=== PATIENT | male | born 1980 | race Caucasian/White ===

== ENCOUNTER 2017-05-18 11:55 | Outpatient (CLI) | payer SELFPAY | END 2017-05-18 15:25 | disposition home or self-care (01) | PROVIDERS: PCP Nurse Practitioner Family; Visit Provider Nurse Practitioner Family | DX: Z02.4 Encounter for examination for driving license (principal) ==

== ENCOUNTER → 2019-11-23 07:04 | Outpatient (CLI) | payer OTHER, SELFPAY ==
[2019-11-23 07:29] LABS: Basophils % 0.3 % (0.1-2.0); Eosinophils # 0.3 K/mm3 (0.0-0.4); Eosinophils % 4.1 % (0.1-12.0); Hematocrit 44.8 % (42.0-52.0); Hemoglobin 15.7 g/dL (14.1-18.0); Lymphocytes # 1.5 K/mm3 (0.7-4.5); Lymphocytes % 22.8 % (10-50); Mean Corpuscular HGB Conc 35.2 g/dL (31.8-35.4); Mean Corpuscular Hemoglobin 31.7 pg (27.0-31.2); Mean Platelet Volume 7.3 fl (7.4-10.4); Monocytes # 0.3 K/mm3 (0.1-1.0); Monocytes % 4.8 % (1.7-9.3); Neutrophils # 4.3 K/mm3 (1.8-7.8); Neutrophils % 68.1 % (37.0-80.0); Platelet Count 221 K/mm3 (142-424); Red Blood Count 4.97 M/mm3 (4.60-6.20); Red Cell Distribution Width 12.5 % (11.5-17.5); White Blood Count 6.4 K/mm3 (4.8-10.8)
[2019-11-23 09:40] LABS: Alanine Aminotransferase 167 U/L (12-78); Albumin Level 4.5 g/dl (3.5-5.0); Albumin/Globulin Ratio 1.4 (1.1-1.8); Alkaline Phosphatase 97 U/L (38-126); Anion Gap 13.8 mEq/L (5-15); Aspartate Amino Transferase 91 U/L (17-59); Bilirubin,Total 0.9 mg/dl (0.2-1.3); Blood Urea Nitrogen 15 mg/dl (9-20); Calcium 9.6 mg/dl (8.4-10.2); Carbon Dioxide 31 mmol/L (22.0-30.0); Chloride 100 mmol/L (98-107); Chol/HDL Ratio 4.2 (1-3.5); Cholesterol 216 mg/dl (140-200); Estimated Glomerular Filt Rate 107 ml/min (>60); GFR (African American) 130 ML/MIN (>60); Globulin 3.3 g/dL (1.3-3.2); Glucose 140 mg/dl (74-100); HDL Cholesterol 51 mg/dl (40-60); Potassium 4.8 mmoL/L (3.5-5.1); Sodium 140 mmol/L (136-145); Total Protein,Serum 7.8 g/dl (6.3-8.2); Triglycerides 89 mg/dl (30-150); VLDL Cholesterol 18 mg/dL (0-40)
[2019-11-23 09:51] LABS: Direct LDL Cholesterol 145.33 mg/dL (100-129)
== END ==
PROVIDERS: Visit Provider Internal Medicine Adolescent Medicine
DX: Z00.00 Encounter for general adult medical examination without abnormal findings (principal); R73.9 Hyperglycemia, unspecified; E78.00 Pure hypercholesterolemia, unspecified; E66.9 Obesity, unspecified
CPT/HCPCS: 36415; 80053; 80061; 83036; 85025

== ENCOUNTER 2020-03-29 19:48 | Emergency (ER) | payer OTHER, SELFPAY ==
[2020-03-29 20:15] VITALS: BP 135/92; PULSE 92; RESP 20; TEMP 36.9; O2SAT 97; BMI 36.6
[2020-03-29 20:48] LABS: POC Glucose,Bedside 167 (70-110)
[2020-03-29 21:02] VITALS: BP 139/90; PULSE 80; RESP 15; TEMP 36.6; O2SAT 99; BMI 37.3
[2020-03-29 21:11] LABS: POC Glucose,Bedside 153 (70-110)
--- NOTE | 2020-03-29 21:11 | XR_ITS ---
PROCEDURE: XR CHEST 2V CLINICAL HISTORY: dizziness COMPARISON: CR CXR1 CHEST-PORTABLE from 12/03/2015 CR CXR1 CHEST-PORTABLE from 12/07/2015 FINDINGS: The cardiomediastinal silhouette and pulmonary vascularity are within normal limits. The lungs are clear without infiltrates, suspicious nodules, or pleural effusions. No acute bony abnormalities. IMPRESSION: No acute findings. Dictated by: Silvino Flanagan MD 03/29/2020 23:08 Silvino Flanagan MD in [place] 03/29/2020 23:08
--- NOTE | 2020-03-29 21:11 | CT_ITS ---
PROCEDURE: CT HEAD/BRAIN WO CON CLINICAL INDICATION: headache,dizziness Frontal headache and dizziness COMPARISON: No exams were available for comparison TECHNIQUE: Axial images obtained. All CT scans at the facility use one or more dose reduction, viz: automated exposure control, ma/kV adjustment per patient size (including targeted exams where dose is matched to indication, i.e. head), or iterative reconstruction technique. FINDINGS: No midline shift or mass effect. No acute intracranial hemorrhage. There is mild mucosal thickening of the ethmoid sinuses. There is a sim cisterna magna versus arachnoid cyst within the posterior cranial fossa. MRI without and with enhancement may further evaluate if clinically warranted. IMPRESSION: 1. No acute intracranial findings. 2. 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
--- NOTE | 2020-03-29 21:11 | ECG_ITS ---
APPROVED REPORT Exam: Resting ECG HR:82 bpm ECG Measurements Heart Rate 82 AXES OR 172 P 42 QRSd 110 QRS 73 QT 356 T 1 QTc 415 Conclusion Normal sinus rhythm Incomplete right bundle branch block Non-significant inferior changes Abnormal ECG Electronically signed by : Zach Patel, 03/30/2020 08:11:27
[2020-03-29 21:24] VITALS: BP 152/99; PULSE 88; RESP 18; O2SAT 98
--- NOTE | 2020-03-29 21:27 | PC.NURSE ---
Patient going to radiology
[2020-03-29 21:30] VITALS: BP 145/94; PULSE 96; O2SAT 95
--- NOTE | 2020-03-29 21:34 | HMH.EDNEU ---
ED Disposition Clinical Impression: Arachnoid cyst Adverse effects of medication Qualifiers: Encounter type: initial encounter Qualified Code(s): T50.905A - Adverse effect of unspecified drugs, medicaments and biological substances, initial encounter Disposition: Home, Self-Care Condition on Discharge: Good Instructions: Tips for Safely Using Medications Additional Instructions: see pcp for follow up Referrals: Zach Patel MD [Primary Care Provider] - - Critical Care Critical Care Time: No Attestation: On 03/29/20, the high probability of a clinically significant, sudden or life threatening deterioration of the following system(s) required my full and direct attention, intervention and personal management. The time I documented below is in addition to time spent performing reported procedures but includes the following listed in this critical care notation. Medical Decision Making - Medical Records Medical records reviewed: Yes: I reviewed the patient's medical records. - Kadeem Inquiry Pt receiving controlled substance: No Vital Signs: 03/29/20 20:15 03/29/20 21:02 03/29/20 21:24 Temperature 98.4 F 97.9 F Temperature Source Oral Oral Pulse Rate [Right Brachial] 92 H 80 88 Respiratory Rate 20 15 18 Blood Pressure [Right Arm] 135/92 H 139/90 152/99 H Blood Pressure Mean [Right Arm] 106 106 116 Blood Pressure Source [Right Arm] Automatic Cuff Automatic Cuff Automatic Cuff Blood Pressure Position [Right Arm] Sitting Sitting Sitting 02 Sat by Pulse Oximetry 97 99 98 Oxygen Delivery Method Room Air Room Air Room Air 03/29/20 21:30 03/29/20 23:00 Temperature Temperature Source Pulse Rate [Right Brachial] 96 H 85 Respiratory Rate Blood Pressure [Right Arm] 145/94 H 145/95 H Blood Pressure Mean [Right Arm] 111 111 Blood Pressure Source [Right Arm] Automatic Cuff Automatic Cuff Blood Pressure Position [Right Arm] Sitting Sitting 02 Sat by Pulse Oximetry 95 Oxygen Delivery Method Room Air - Lab Data Lab results reviewed: Yes: I reviewed the patient's lab results. Lab Results 03/29/20 20:39: POC Glucose 167 H 03/29/20 21:03: POC Glucose 153 H 03/29/20 21:20: WBC 8.6, RBC 5.66, Hgb 17.6, Hct 50.8, MCV 89.9, MCH 31.0, MCHC 34.5, RDW 13.2, Plt Count 259, MPV 7.5, Neut % (Auto) 68.5, Lymph % (Auto) 21.0, [place] % (Auto) 6.3, Eos % (Auto) 3.7, Baso % (Auto) 0.5, Neut # (Auto) 5.9, Lymph # (Auto) 1.8, [place] # (Auto) 0.5, Eos # (Auto) 0.3, Baso # (Auto) 0.0 03/29/20 21:20: Sodium 140, Potassium 4.1, Chloride 103, Carbon Dioxide 28, Anion Gap 13.1, BUN 18, Creatinine 1.00, Estimated Creat Clear 173, Estimated GFR 83, Est GFR ( Amer) 100, Glucose 133 H, Calcium 9.5, Troponin I < 0.01, TSH 3.68 03/29/20 21:20: Free T4 0.75 L 03/29/20 21:51: Urine Color Yellow, Urine Appearance Clear, Urine pH 6.0, Ur Specific [place] 1.025, Urine Protein Negative, Urine Glucose (UA) 3+, Urine Ketones Negative, Urine Blood Negative, Urine Nitrate Negative, Urine Bilirubin Negative, Urine Urobilinogen 0.2, Ur Leukocyte Esterase Negative, Urine WBC Occasional 03/29/20 21:51: Urine Opiates Screen Negative, Urine Methadone Screen Negative, Ur Barbituates Screen Negative, Ur Phencyclidine Scrn Negative, Ur Amphetamines Screen Negative, U Benzodiazepines Scrn Negative, Urine Cocaine Screen Negative, U Marijuana (THC) Screen Negative Result diagrams: 03/29/20 21:20 03/29/20 21:20 Orders (Tests/Meds): ORDERS Category Date Time Status CT head/brain wo con Stat Cat Scan 03/29/20 21:11 Taken Troponin I Q3H Lab 03/30/20 00:15 Ordered Troponin I Q3H Lab 03/30/20 03:15 Ordered - Radiology Data #1 Image(s): Chest Image Reviewed: Yes I reviewed the patient's radiology image Preliminary Findings: Normal/NAD - CT Data CT Scan: Head Time Received: 23:[address] Reviewed: Yes: I have viewed the radiologist's interpretation Preliminary Findings: Abnormal (arachnoid cyst ) - ECG Data Tracing #1 Norm
[2020-03-29 21:35] LABS: Basophils % 0.5 % (0.1-2.0); Eosinophils # 0.3 K/mm3 (0.0-0.4); Eosinophils % 3.7 % (0.1-12.0); Hematocrit 50.8 % (42.0-52.0); Hemoglobin 17.6 g/dL (14.1-18.0); Lymphocytes # 1.8 K/mm3 (0.7-4.5); Mean Corpuscular HGB Conc 34.5 g/dL (31.8-35.4); Mean Corpuscular Volume 89.9 fl (80-94); Mean Platelet Volume 7.5 fl (7.4-10.4); Monocytes # 0.5 K/mm3 (0.1-1.0); Monocytes % 6.3 % (1.7-9.3); Neutrophils # 5.9 K/mm3 (1.8-7.8); Neutrophils % 68.5 % (37.0-80.0); Platelet Count 259 K/mm3 (142-424); Red Blood Count 5.66 M/mm3 (4.60-6.20); Red Cell Distribution Width 13.2 % (11.5-17.5); White Blood Count 8.6 K/mm3 (4.8-10.8)
[2020-03-29 21:36] LABS: Chloride 103 mmol/L (98-107); Sodium 140 mmol/L (136-145)
[2020-03-29 21:37] LABS: Potassium 4.1 mmoL/L (3.5-5.1)
[2020-03-29 21:40] LABS: Anion Gap 13.1 mEq/L (5-15); Blood Urea Nitrogen 18 mg/dl (9-20); Calcium 9.5 mg/dl (8.4-10.2); Carbon Dioxide 28 mmol/L (22.0-30.0); Creatinine Clearance Estimated 173 mL/min (50-200); Estimated Glomerular Filt Rate 83 ml/min (>60); GFR (African American) 100 ML/MIN (>60); Glucose 133 mg/dl (74-100)
--- NOTE | 2020-03-29 21:49 | PC.NURSE ---
pt back from RAD
[2020-03-29 21:57] LABS: Free T4 (Free Thyroxine) 0.75 ng/dl (0.78-2.19)
[2020-03-29 22:02] LABS: Troponin I < 0.01 ng/ml (0.00-0.034)
[2020-03-29 22:05] LABS: Microscopic, Urine URINE MICROSCOPIC (MICROSCOPIC)
[2020-03-29 22:10] LABS: Appearance,Urine CLEAR (Clear); Bilirubin,Urine Negative (Negative); Blood, Urine Negative (Negative); Color,Urine YELLOW (Yellow); Glucose,Urine (UA) 3+ (Negative); Ketones,Urine Negative (Negative); Leukocyte Esterase,Urine Negative (Negative); Nitrate,Urine Negative (Negative); Protein,Urine Negative (Negative); Specific Gravity, Urine 1.025 (1.005-1.030); Urobilinogen,Urine 0.2 EU/dl (0.2)
[2020-03-29 22:12] LABS: Thyroid Stimulating Hormone 3.68 uIU/mL (0.465-4.68)
[2020-03-29 22:27] LABS: WBC,Urine Occasional #/hpf (0-3)
[2020-03-29 22:29] LABS: Benzodiazepines Screen,Urine Negative ng/ml (<200)
[2020-03-29 22:30] LABS: Amphetamine/Metha Screen,Urine Negative ng/ml (<1000); Barbiturates Screen,Urine Negative ng/ml (<200)
[2020-03-29 22:31] LABS: Cannabinoid Screen,Urine Negative ng/ml (<50)
[2020-03-29 22:32] LABS: Cocaine Screen,Urine Negative ng/ml (<300); Methadone Screen,Urine Negative ng/ml (<300)
[2020-03-29 22:33] LABS: Opiate Screen,Urine Negative ng/ml (<300)
[2020-03-29 22:34] LABS: Phencyclidine Screen,Urine Negative ng/ml (<25)
[2020-03-29 23:00] VITALS: BP 145/95; PULSE 85
[2020-03-30 00:13] VITALS: BP 155/75; PULSE 79; RESP 16; TEMP 36.7; O2SAT 99
== END 2020-03-30 00:15 | disposition home or self-care (01) ==
LOC: UTC 19:54 → ER 20:41
PROVIDERS: Emergency Provider Emergency Medicine; PCP Internal Medicine Adolescent Medicine
DX: G93.0 Cerebral cysts (principal); T50.905A Adverse effect of unspecified drugs, medicaments and biological substances, initial encounter; E11.9 Type 2 diabetes mellitus without complications; I10 Essential (primary) hypertension; Z79.84 Long term (current) use of oral hypoglycemic drugs; Z79.899 Other long term (current) drug therapy
CPT/HCPCS: 70450; 71046; 80048; 80305; 81001; 82962; 84439; 84443; 84484; 85025; 93005; 99284

== ENCOUNTER → 2020-04-02 17:03 | Outpatient (CLI) | payer OTHER, SELFPAY ==
[2020-04-02 17:55] LABS: Blood Urea Nitrogen 20 mg/dl (9-20); Estimated Glomerular Filt Rate 83 ml/min (>60); GFR (African American) 100 ML/MIN (>60)
== END ==
PROVIDERS: Visit Provider Internal Medicine Adolescent Medicine
DX: E11.69 Type 2 diabetes mellitus with other specified complication (principal); Z79.84 Long term (current) use of oral hypoglycemic drugs
CPT/HCPCS: 36415; 82565; 84520

== ENCOUNTER → 2020-04-04 07:38 | Outpatient (CLI) | payer OTHER, SELFPAY ==
--- NOTE | 2020-04-04 07:43 | MR_ITS ---
PROCEDURE: MR HEAD/BRAIN WO/W CON CLINICAL INDICATION: Headaches and dizziness, abnormal head CT. 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 FINDINGS: No midline shift or mass effect evident. No evidence of acute infarction. Prominent CSF signal intensity is noted in the retro cerebellar region slightly eccentric toward the right. This is felt represent a sim cisterna magna as opposed to an arachnoid cyst. This cystic areas splits the dura superiorly with some traversing vessels in keeping with and sim cisterna magna. This area does not show any contrast enhancement. There is some mild flattening of the superior vermis of the cerebellum from this cystic area. The cerebellopontine angles, midbrain, and brainstem have an unremarkable appearance. No enhancing lesions are evident. There is a small focus of increased T2 signal in the subcortical region of the left parietal lobe which is nonspecific best detected on series 8, image 15. This does not show any contrast enhancement. The pituitary, optic chiasm, corpus callosum, and craniocervical junction have an unremarkable appearance. Small amount fluid is present in the mastoid sinus on the right. There is mucosal thickening of the right maxillary sinus and bilateral ethmoid sinuses. IMPRESSION: 1. Prominent CSF signal intensity in the retro cerebellar region eccentric toward the right as described above felt to represent a sim cisterna magna as opposed to an arachnoid cyst. There is some mild mass effect with flattening of the vermis centrally. Suggest 3 to six-month follow-up to confirm stability. 2. Small focus of T2 hyperintensity in the subcortical region white matter in the left parietal lobe. This is nonspecific and may be due to small gliotic focus. Differential diagnosis would include a solitary demyelinating area. Follow-up may confirm stability. 3. Mild sinus disease Dictated by: Silvino Flanagan MD 04/04/2020 12:59 Silvino Flanagan MD in [place] 04/04/2020 12:59
== END ==
PROVIDERS: PCP Internal Medicine Adolescent Medicine; Visit Provider Nurse Practitioner Family
DX: R93.0 Abnormal findings on diagnostic imaging of skull and head, not elsewhere classified (principal)
CPT/HCPCS: 70553; A9576

== ENCOUNTER → 2020-05-02 07:06 | Outpatient (CLI) | payer OTHER, SELFPAY ==
[2020-05-02 08:48] LABS: Hemoglobin A1C 6.1 % (4.0-6.0)
[2020-05-02 08:56] LABS: Alanine Aminotransferase 77 U/L (12-78); Albumin Level 4.5 g/dl (3.5-5.0); Albumin/Globulin Ratio 1.3 (1.1-1.8); Alkaline Phosphatase 79 U/L (38-126); Anion Gap 12.6 mEq/L (5-15); Aspartate Amino Transferase 42 U/L (17-59); Bilirubin,Total 0.9 mg/dl (0.2-1.3); Blood Urea Nitrogen 16 mg/dl (9-20); Calcium 9.8 mg/dl (8.4-10.2); Carbon Dioxide 29 mmol/L (22.0-30.0); Chloride 101 mmol/L (98-107); Chol/HDL Ratio 3.9 (1-3.5); Cholesterol 188 mg/dl (140-200); Estimated Glomerular Filt Rate 93 ml/min (>60); GFR (African American) 113 ML/MIN (>60); Globulin 3.4 g/dL (1.3-3.2); Glucose 121 mg/dl (74-100); HDL Cholesterol 48 mg/dl (40-60); Potassium 4.6 mmoL/L (3.5-5.1); Sodium 138 mmol/L (136-145); Total Protein,Serum 7.9 g/dl (6.3-8.2); Triglycerides 75 mg/dl (30-150); VLDL Cholesterol 15 mg/dL (0-40)
[2020-05-02 09:06] LABS: Direct LDL Cholesterol 109.88 mg/dL (100-129)
== END ==
PROVIDERS: Visit Provider Internal Medicine Adolescent Medicine
DX: E11.69 Type 2 diabetes mellitus with other specified complication (principal)
CPT/HCPCS: 36415; 80053; 80061; 83036

== ENCOUNTER → 2020-10-19 14:37 | Outpatient (CLI) | payer OTHER, SELFPAY | PROVIDERS: PCP Internal Medicine Adolescent Medicine; Visit Provider Internal Medicine Adolescent Medicine | DX: G47.33 Obstructive sleep apnea (adult) (pediatric) (principal); I10 Essential (primary) hypertension; E66.9 Obesity, unspecified | CPT/HCPCS: 95806 ==

== ENCOUNTER 2020-10-24 20:37 | Observation (INO) | payer OTHER, SELFPAY ==
[2020-10-24] VITALS (10 sets, daily range): BP systolic 125–163; BP diastolic 85–101; PULSE 88–104; RESP 15–22; TEMP 36.7–37.3; O2SAT 91–100; BMI 37.3; BMI 37.2
--- NOTE | 2020-10-24 20:35 | ECG_ITS ---
APPROVED REPORT Exam: Resting ECG HR:103 bpm ECG Measurements Heart Rate 103 AXES [place] 154 P 9 QRSd 104 QRS 69 QT 330 T 12 QTc 432 Conclusion Sinus tachycardia Incomplete right bundle branch block Borderline ECG Electronically signed by : Zach Patel, 10/25/2020 08:34:39
--- NOTE | 2020-10-24 20:49 | XR_ITS ---
PROCEDURE INFORMATION: Exam: XR Chest Exam date and time: 10/24/2020 8:49 PM Age: 40 years old Clinical indication: Chest pressure; Patient HX: Chest pain since this morning, no other symptoms TECHNIQUE: Imaging protocol: XR of the chest. Views: 2 views. COMPARISON: CR XR CHEST 2V 03/29/2020 9:21 PM FINDINGS: Lungs: Mild underinflation. No consolidation. Pleural spaces: No significant pleural effusion. No pneumothorax. Heart/Mediastinum: No cardiomegaly. Bones/joints: No displaced fracture. Soft tissues: Unremarkable. IMPRESSION: No definite acute cardiopulmonary disease.
[2020-10-24 20:51] LABS: POC Glucose,Bedside 147 (70-110)
--- NOTE | 2020-10-24 21:09 | CT_ITS ---
PROCEDURE INFORMATION: Exam: CT Head Without Contrast Exam date and time: 10/24/2020 9:09 PM Age: 40 years old Clinical indication: Syncope and collapse TECHNIQUE: Imaging protocol: Computed tomography of the head without contrast. Radiation optimization: All CT scans at this facility use at least one of these dose optimization techniques: automated exposure control; mA and/or kV adjustment per patient size (includes targeted exams where dose is matched to clinical indication); or iterative reconstruction. COMPARISON: MR HEAD/BRAIN WO/W CON 04/04/2020 7:56 AM FINDINGS: Brain: No intracranial hemorrhage. No mass. Prominent cisterna magna. No definite edema. Cerebral ventricles: No hydrocephalus. Paranasal sinuses: Scattered minimal mucosal thickening. Mastoid air cells: No significant effusion. Orbital cavity: Unremarkable as visualized. Bones/joints: No acute fracture. Soft tissues: Unremarkable. IMPRESSION: No definite acute intracranial abnormality. If symptoms persist, consider MRI.
[2020-10-24 21:14] LABS: Anion Gap 16.4 mEq/L (5-15); Blood Urea Nitrogen 17 mg/dl (9-20); Calcium 9.2 mg/dl (8.4-10.2); Carbon Dioxide 28 mmol/L (22.0-30.0); Chloride 101 mmol/L (98-107); Creatinine Clearance Estimated 172 mL/min (50-200); Estimated Glomerular Filt Rate 82 ml/min (>60); GFR (African American) 100 ML/MIN (>60); Glucose 140 mg/dl (74-100); Potassium 4.4 mmoL/L (3.5-5.1); Sodium 141 mmol/L (136-145)
[2020-10-24 21:17] LABS: Basophils # 0.1 K/mm3 (0-0.2); Basophils % 1.2 % (0.1-2.0); Eosinophils # 0.1 K/mm3 (0.0-0.4); Eosinophils % 2.1 % (0.1-12.0); Hematocrit 44.6 % (42.0-52.0); Hemoglobin 15.6 g/dL (14.1-18.0); Lymphocytes # 1.3 K/mm3 (0.7-4.5); Lymphocytes % 20.1 % (10-50); Mean Corpuscular Hemoglobin 30.2 pg (27.0-31.2); Mean Corpuscular Volume 86.3 fl (80-94); Mean Platelet Volume 7.4 fl (7.4-10.4); Monocytes # 0.4 K/mm3 (0.1-1.0); Monocytes % 6.3 % (1.7-9.3); Neutrophils # 4.4 K/mm3 (1.8-7.8); Neutrophils % 70.3 % (37.0-80.0); Platelet Count 195 K/mm3 (142-424); Red Blood Count 5.18 M/mm3 (4.60-6.20); Red Cell Distribution Width 12.8 % (11.5-17.5); White Blood Count 6.3 K/mm3 (4.8-10.8)
[2020-10-24 21:20] LABS: C-Reactive Protein 16.3 mg/L (0-4)
[2020-10-24 21:31] LABS: Troponin I < 0.01 ng/ml (0.00-0.034)
[2020-10-24 21:34] LABS: Procalcitonin 0.085 ng/mL (0.0-2.0)
--- NOTE | 2020-10-24 21:34 | HMH.EDCP ---
ED Disposition Clinical Impression: Obesity (BMI 30-39.9) Chest pain Qualifiers: Chest pain type: precordial pain Qualified Code(s): R07.2 - Precordial pain Diabetes mellitus Qualifiers: Diabetes mellitus type: type 2 Diabetes mellitus emt intermediate insulin use: unspecified emt intermediate insulin use status Diabetes mellitus complication status: with other specified complication Qualified Code(s): E11.69 - Type 2 diabetes mellitus with other specified complication HTN (hypertension) Qualifiers: Hypertension type: primary hypertension Qualified Code(s): I10 - Essential (primary) hypertension Disposition: Admitted as Observation Condition on Discharge: Good - Critical Care Critical Care Time: No Attestation: On 10/24/20, the high probability of a clinically significant, sudden or life threatening deterioration of the following system(s) required my full and direct attention, intervention and personal management. The time I documented below is in addition to time spent performing reported procedures but includes the following listed in this critical care notation. Medical Decision Making - Medical Records Medical records reviewed: Yes: I reviewed the patient's medical records. - Kadeem Inquiry Pt receiving controlled substance: No Vital Signs: 10/24/20 20:38 Temperature 98.7 F Temperature Source Oral Pulse Rate [Left] 104 H Respiratory Rate 22 Blood Pressure [Left Arm] 155/101 H Blood Pressure Mean [Left Arm] 119 Blood Pressure Source [Left Arm] Automatic Cuff 02 Sat by Pulse Oximetry 100 Oxygen Delivery Method Room Air - Lab Data Lab results reviewed: Yes: I reviewed the patient's lab results. Lab Results 10/24/20 20:40: WBC 6.3, RBC 5.18, Hgb 15.6, Hct 44.6, MCV 86.3, MCH 30.2, MCHC 35.0, RDW 12.8, Plt Count 195, MPV 7.4, Neut % (Auto) 70.3, Lymph % (Auto) 20.1, [place] % (Auto) 6.3, Eos % (Auto) 2.1, Baso % (Auto) 1.2, Neut # (Auto) 4.4, Lymph # (Auto) 1.3, [place] # (Auto) 0.4, Eos # (Auto) 0.1, Baso # (Auto) 0.1 10/24/20 20:40: Sodium 141, Potassium 4.4, Chloride 101, Carbon Dioxide 28, Anion Gap 16.4 H, BUN 17, Creatinine 1.00, Estimated Creat Clear 172, Estimated GFR 82, Est GFR ( Amer) 100, Glucose 140 H, Calcium 9.2, Troponin I < 0.01, C-Reactive Protein 16.3 H 10/24/20 20:40: ESR 23 H 10/24/20 20:40: Procalcitonin 0.085 10/24/20 20:44: POC Glucose 147 H Result diagrams: 10/24/20 20:40 10/24/20 20:40 Orders (Tests/Meds): ED MEDICATIONS Generic Name Dose Route Start Last Admin Trade Name Freq PRN Reason Stop Dose Admin Sodium Chloride 1,000 mls @ 999 mls/hr 10/24/20 21:00 10/24/20 21:21 Sod Chlor 0.9% 1000ml Bag IV 10/24/20 22:00 999 mls/hr .Q1H1M RUSSELL Administration Nitroglycerin 0.4 mg 10/24/20 22:53 10/24/20 22:00 Nitroglycerin 0.4mg Sl Tablet SL 11/23/20 22:52 0.4 mg Q5MINP PRN Administration Chest Pain Discontinued Medications Generic Name Dose Route Start Last Admin Trade Name Freq PRN Reason Stop Dose Admin Aspirin 324 mg 10/24/20 20:49 10/24/20 21:20 Aspirin 81mg Chewable Tablet PO 10/24/20 20:50 324 mg ONCE ONE Administration Iopamidol 70 ml 10/24/20 22:07 10/24/20 22:08 Iopamidol-370 (76%);100ml Bottle IV 10/24/20 22:08 70 ml ONCE ONE Administration Nitroglycerin 1 gm 10/24/20 22:53 10/24/20 22:30 Nitroglycerin 1 Gm Ointment TD 10/24/20 22:54 1 gm ONCE ONE Administration Sodium Chloride 50 ml 10/24/20 22:07 10/24/20 22:08 0.9 % Sodium Chloride 50 Ml Vial IV 10/24/20 22:08 50 ml ONCE ONE Administration Sodium Chloride 10 ml 10/24/20 22:07 10/24/20 22:08 Sodium Chloride 0.9% 10ml Syr (Rad Only) IV 10/24/20 22:08 10 ml ONCE ONE Administration ORDERS Category Date Time Status Troponin I Q3H Lab 07/03/21 23:50 Ordered Troponin I Q3H Lab 10/25/20 02:50 Ordered - Radiology Data #1 Image(s): Chest Image Reviewed: Yes I reviewed the patient's radiology image Preliminar
--- NOTE | 2020-10-24 21:41 | CT_ITS ---
PROCEDURE INFORMATION: Exam: CTA Chest With Contrast Exam date and time: 10/24/2020 9:41 PM Age: 40 years old Clinical indication: Left-sided; Patient HX: Left sided chest pain since this morning TECHNIQUE: Imaging protocol: Computed tomographic angiography of the chest with contrast. 3D rendering (Not supervised by radiologist): MIP and/or 3D reconstructed images were created by the technologist. Radiation optimization: All CT scans at this facility use at least one of these dose optimization techniques: automated exposure control; mA and/or kV adjustment per patient size (includes targeted exams where dose is matched to clinical indication); or iterative reconstruction. Contrast material: ISO 370; Contrast volume: 70 ml; Contrast route: INTRAVENOUS (IV); COMPARISON: CR XR CHEST 2V 10/24/2020 8:48 PM FINDINGS: Limitations: Motion artifact - mild. Pulmonary arteries: No definite pulmonary embolism. Aorta: Unremarkable. No aneurysm. Lungs: No consolidation. RUL calcified granuloma. Few nodules, up to 0.3 cm. Pleural spaces: No significant pleural effusion. No pneumothorax. Heart: No cardiomegaly. No pericardial effusion. Lymph nodes: No pathologically enlarged lymph nodes. Liver: Fatty infiltration. Kidneys and ureters: Few punctate calculi within LEFT kidney. Bones/joints: No acute fracture. Soft tissues: Unremarkable. IMPRESSION: 1. No definite CT evidence of pulmonary embolism. 2. Pulmonary nodules. For patients at low risk (minimal or absent history of smoking and of other known risk factors), no routine follow-up is indicated. For patients at high risk (history of smoking or of other known risk factors), consider optional CT at 12 months. (rebecca Anton al., Fleischner Society, 2017)
[2020-10-24 21:42] LABS: Erythrocyte Sedimentation Rate 23 mm/hr (0-15)
--- NOTE | 2020-10-24 22:47 | PC.NURSE ---
Admitted to 209
[2020-10-24 23:03] LABS: Coronavirus 19, PCR Not Detected (NotDetected); Influenza A, PCR Not Detected (NotDetected); Influenza B, PCR Not Detected (NotDetected)
--- NOTE | 2020-10-24 23:33 | PC.NURSE ---
PT ARRIVED TO FLOOR VIA W/C FROM ED W/STAFF AT [id number]
[2020-10-25 00:37] LABS: Troponin I < 0.01 ng/ml (0.00-0.034)
--- NOTE | 2020-10-25 03:14 | PC.NURSE ---
A&OX4. TOLERATING RA WELL. PT HAS HAD NO C/O CP OR SOA SINCE ARRIVAL TO FLOOR. PT ONLY C/O HEADACHE, TX WITH TYLENOL PER MAR. ON REASSESSMENT PT IS SLEEPING IN BED. NSR ON TELE. AT BEDSIDE. VSS WILL CONTINUE TO MONITOR.
[2020-10-25 03:30] LABS: Troponin I < 0.01 ng/ml (0.00-0.034)
[2020-10-25 03:46] VITALS: BP 118/70; PULSE 85; RESP 17; TEMP 36.9; O2SAT 92
--- NOTE | 2020-10-25 03:54 | PC.NURSE ---
ONCE PT C/O HEADACHE AND ALSO BOUNDING PULSE, REMOVED NITRO PATCH, ADMINISTERED TYLENOL. PT STATES HE FEELS MUCH BETTER AFTER THIS.
[2020-10-25 04:00] VITALS: PULSE 90
[2020-10-25 05:22] LABS: POC Glucose,Bedside 126 (70-110)
[2020-10-25 06:29] LABS: Basophils # 0.1 K/mm3 (0-0.2); Basophils % 1.1 % (0.1-2.0); Eosinophils # 0.3 K/mm3 (0.0-0.4); Eosinophils % 4.1 % (0.1-12.0); Hematocrit 42.4 % (42.0-52.0); Hemoglobin 14.6 g/dL (14.1-18.0); Lymphocytes # 1.5 K/mm3 (0.7-4.5); Lymphocytes % 23.5 % (10-50); Mean Corpuscular HGB Conc 34.5 g/dL (31.8-35.4); Mean Corpuscular Hemoglobin 30.4 pg (27.0-31.2); Mean Corpuscular Volume 88.1 fl (80-94); Mean Platelet Volume 7.5 fl (7.4-10.4); Monocytes # 0.4 K/mm3 (0.1-1.0); Monocytes % 5.4 % (1.7-9.3); Neutrophils # 4.2 K/mm3 (1.8-7.8); Neutrophils % 65.9 % (37.0-80.0); Platelet Count 195 K/mm3 (142-424); Red Blood Count 4.81 M/mm3 (4.60-6.20); Red Cell Distribution Width 12.7 % (11.5-17.5); White Blood Count 6.5 K/mm3 (4.8-10.8)
[2020-10-25 06:37] LABS: Anion Gap 9.7 mEq/L (5-15); Blood Urea Nitrogen 16 mg/dl (9-20); Calcium 8.3 mg/dl (8.4-10.2); Carbon Dioxide 30 mmol/L (22.0-30.0); Chloride 104 mmol/L (98-107); Creatinine Clearance Estimated 172 mL/min (50-200); Estimated Glomerular Filt Rate 82 ml/min (>60); GFR (African American) 100 ML/MIN (>60); Glucose 125 mg/dl (74-100); Magnesium 2.1 mg/dl (1.6-2.3); Potassium 4.7 mmoL/L (3.5-5.1); Sodium 139 mmol/L (136-145)
[2020-10-25 07:38] VITALS: BP 154/97; PULSE 73; RESP 18; TEMP 36.4; O2SAT 96
--- NOTE | 2020-10-25 08:22 | HMH.HPDC ---
General - General Admission date:: 10/24/20 Discharge date: 10/25/20 *Admission Date: 10/24/20 *Chief complaint: Chest pain with dyspnea *History of present illness: 40-year-old white male with obesity, hypertension, non-smoker, but recently diagnosed type 2 diabetes who was at work and doing some strenuous activity when he felt fatigued and dyspneic. 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 Drove here to the emergency department where he was evaluated. CTA of the chest was negative, initial enzymes were negative but given his history, significant risk factors he was watched overnight for rule out [place]. This morning he feels 100% better. [facility] History I have reviewed the patient's past medical history: Yes Medical History: Reports:: Diabetes Mellitus Type 2, Hypertension *Have you ever received a pneumonia vaccine?: No *Have you received a flu vaccine this season?: No Other Surgeries: Yes: Cardiac Catheterization - *Social History Last grade of school completed: High school graduate Smoking Status: Never smoker Alcohol Intake: never *Occupational Status:: employed *Travel in the last 8 weeks: None Family Hx:: No significant family history Review of Systems - Review of Systems Review of systems:: pertinent systems reviewed and negative unless documented below - *Neurologic Denies localized weakness, Denies headache(s), Denies seizure-like activity Exam Vital signs and Labs for Last 24 Hours: Temp Pulse Resp BP Pulse Ox 97.5 F L 73 18 154/97 H 96 10/25/20 07:38 10/25/20 07:38 10/25/20 07:38 10/25/20 07:38 10/25/20 07:38 Laboratory Results - last 24 hr 10/24/20 20:40: WBC 6.3, RBC 5.18, Hgb 15.6, Hct 44.6, MCV 86.3, MCH 30.2, MCHC 35.0, RDW 12.8, Plt Count 195, MPV 7.4, Neut % (Auto) 70.3, Lymph % (Auto) 20.1, [place] % (Auto) 6.3, Eos % (Auto) 2.1, Baso % (Auto) 1.2, Neut # (Auto) 4.4, Lymph # (Auto) 1.3, [place] # (Auto) 0.4, Eos # (Auto) 0.1, Baso # (Auto) 0.1 10/24/20 20:40: Sodium 141, Potassium 4.4, Chloride 101, Carbon Dioxide 28, Anion Gap 16.4 H, BUN 17, Creatinine 1.00, Estimated Creat Clear 172, Estimated GFR 82, Est GFR ( Amer) 100, Glucose 140 H, Calcium 9.2, Troponin I < 0.01, C-Reactive Protein 16.3 H 10/24/20 20:40: ESR 23 H 10/24/20 20:40: Procalcitonin 0.085 10/24/20 20:44: POC Glucose 147 H 10/24/20 22:45: SARS-CoV-2 (PCR) Not detected, Influenza A Untype (PCR) Not detected, Influenza Type B (PCR) Not detected 10/25/20 00:10: Troponin I < 0.01 10/25/20 03:03: Troponin I < 0.01 10/25/20 05:02: POC Glucose 126 H 10/25/20 06:17: WBC 6.5, RBC 4.81, Hgb 14.6, Hct 42.4, MCV 88.1, MCH 30.4, MCHC 34.5, RDW 12.7, Plt Count 195, MPV 7.5, Neut % (Auto) 65.9, Lymph % (Auto) 23.5, [place] % (Auto) 5.4, Eos % (Auto) 4.1, Baso % (Auto) 1.1, Neut # (Auto) 4.2, Lymph # (Auto) 1.5, [place] # (Auto) 0.4, Eos # (Auto) 0.3, Baso # (Auto) 0.1 10/25/20 06:17: Sodium 139, Potassium 4.7, Chloride 104, Carbon Dioxide 30, Anion Gap 9.7, BUN 16, Creatinine 1.00, Estimated Creat Clear 172, Estimated GFR 82, Est GFR ( Amer) 100, Glucose 125 H, Calcium 8.3 L, Magnesium 2.1 I & O for Last 24 hours: Intake & Output 10/22/20 10/23/20 10/24/20 10/25/20 11:59 11:59 11:59 11:59 Intake Total 1262 / 1262 Balance 1262 / 1262 Weight 275 lb - Constitutional no acute distress - *Routine HEENT Exam Head: Present: normocephalic Eye: Present: EOMI, PERRL ENT: Present: mucous membranes moist - *Routine Neck Exam Present: supple. Absent: lymphadenopathy - *Routine Respiratory Exam Present: CTA bilaterally - *Routine Cardiovascular Exam Present: RRR - *Routine Abdominal Exam Present: soft, normoactive bowel sounds. Absent: tenderness - *Routine Rectal Exam
== END 2020-10-25 09:05 | disposition home or self-care (01) ==
LOC: ER 21:11 → 2ND 23:09
PROVIDERS: Admitting Provider Emergency Medicine; Emergency Provider Emergency Medicine; PCP Internal Medicine Adolescent Medicine; Visit Provider Internal Medicine Adolescent Medicine
DX: R07.9 Chest pain, unspecified (principal); I10 Essential (primary) hypertension; E11.9 Type 2 diabetes mellitus without complications; Z79.899 Other long term (current) drug therapy; Z79.84 Long term (current) use of oral hypoglycemic drugs
CPT/HCPCS: 36415; 70450; 71046; 71275; 80048; 82962; 83735; 84145; 84484; 85025; 85651; 86140; 93005; 96365; 99283; G0378; Q9967; U0003

== ENCOUNTER → 2020-11-05 06:21 | Outpatient (CLI) | payer OTHER, SELFPAY ==
--- NOTE | 2020-11-05 | NM_ITS ---
APPROVED REPORT Exam: Nuclear Stress Test Indication: Chest pain, SOB, Fatigue, HTN, DM, Family history Patient Location: Outpatient Stress Tech: Nevaeh Boudreaux [place] Tech:Jackeline Garcia ARRT RT(R)(N) Ht: 6 ft 0 in Wt: 275 lbs HR: 82 bpm BP: 135/86 mmHg BSA: 2.44 m2 History: Chest pain, SOB, Fatigue, HTN, DM, Family history Procedure: Patient exercised on Krishan protocol 9:00 minutes and sec, resting heart rate 82 bpm, resting blood pressure 135/86 mmHg, with exercise maximum heart rate achived was 157 bpm which is 88 % of the maximum predicted heart rate and blood pressure was 158/85 mmHg. Patient has Good exercise capacity, achieved 10.1 METs of workload on treadmill, the blood pressure response to exercise was Adequate. Electrocardiogram Resting electrocardiogram shows sinus rhythm, with exercise there is less than 1.[address] segment depression noted from the baseline EKG. The EKG portion of the exercise Myoview is negative for ischemia. Cardiac Stress and Resting SPECT Images: Cardiac Stress and Resting SPECT images were obtained using technetium 99m Myoview 31.0 mCi stress and 10.24 mCi at rest. Gated SPECT for analysis of segmental wall motion and calculation of the ejection fraction also done, prone images were also obtained. Cardiac stress and resting SPECT images show uniform myocardial activity without segmental perfusion abnormality, computer derived ejection fraction is 58% with no regional wall motion abnormality, right ventricle is normal size and contractility. Conclusion: 1. The EKG portion of the exercise Myoview is negative for ischemia, patient has good exercise capacity achieved 10.1 METs of workload on treadmill, the blood pressure response to exercise was adequate, there was no exercise-induced chest discomfort. 2. No scintigraphic evidence of reversible ischemia seen, computer derived ejection fraction is 58% with no regional wall motion abnormality, right ventricle is normal size and contractility. 3. Normal exercise Myoview study. Electronically signed by : Sandro uSarez, 11/05/2020 16:17:31
--- NOTE | 2020-11-05 | CA_ITS ---
APPROVED REPORT Exam: Exercise Treadmill Technologist: Nevaeh Boudreaux, Ht: 6 ft 0 in Wt: 275 lbs BSA: 2.44 m2 HR: 72 bpm BP: 135/90 mmHg Medical History Medications: Lisinopril,,,,, Metformin,,,,, SteGLATRO,,,,, Stress Test Details Test: Krishan HR Resting HR: 82 bpm Max Heart Rate (APMHR): 179.387289 bpm Max HR Achieved: 157 bpm Target HR (85% APMHR): 152.520886 bpm % of APMHR: 87.71 Recovery HR: 96 bpm BP Resting BP: 135/86 mmHg Max BP: 166/86 mmHg Recovery BP: 127.0/73.0 mmHg ECG Resting ECG: NSR, cannot R/O old inferior OR Clinical Exercise duration: 09:00 min Highest Stage Achieved: Exercise capacity: 10.1 METs Stress ECG Conclusion Max HR: 157 % of PM: 88% Max BP: 166/86 MET's: 10.1 Test stopped due to: SOA, fatigue Symptoms: No CP Arrhythmias/Ectopy: None ST-T Changes: Normal ST response to exercise. Conclusion: Normal GXT with decreased sensitivity due to baseline EKG abns. Myoview images reported separately. Electronically signed by : Sandro Suarez, 11/05/2020 16:00:15
== END ==
PROVIDERS: PCP Internal Medicine Adolescent Medicine; Visit Provider Internal Medicine Adolescent Medicine
DX: R07.9 Chest pain, unspecified (principal)
CPT/HCPCS: 78452; 93017; A9502

== ENCOUNTER 2022-03-17 09:20 | Emergency (ER) | payer OTHER, SELFPAY ==
[2022-03-17 09:24] VITALS: BP 139/89; PULSE 98; RESP 18; TEMP 36.7; O2SAT 100; BMI 36.6
[2022-03-17 09:31] VITALS: BP 137/89; PULSE 106; O2SAT 98
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
[2022-03-17 09:47] LABS: Basophils # 0.1 K/mm3 (0-0.2); Eosinophils # 0.2 K/mm3 (0.0-0.4); Eosinophils % 3.3 % (0.1-12.0); Hematocrit 47.4 % (42.0-52.0); Lymphocytes # 1.3 K/mm3 (0.7-4.5); Lymphocytes % 20.8 % (10-50); Mean Corpuscular HGB Conc 33.7 g/dL (31.8-35.4); Mean Corpuscular Hemoglobin 30.2 pg (27.0-31.2); Mean Corpuscular Volume 89.5 fl (80-94); Mean Platelet Volume 8.1 fl (7.4-10.4); Monocytes # 0.3 K/mm3 (0.1-1.0); Monocytes % 4.1 % (1.7-9.3); Neutrophils # 4.4 K/mm3 (1.8-7.8); Neutrophils % 70.8 % (37.0-80.0); Platelet Count 210 K/mm3 (142-424); Red Blood Count 5.29 M/mm3 (4.60-6.20); Red Cell Distribution Width 12.1 % (11.5-17.5); White Blood Count 6.1 K/mm3 (4.8-10.8)
[2022-03-17 09:52] LABS: Chloride 98 mmol/L (98-107); Potassium 4.4 mmoL/L (3.5-5.1); Sodium 134 mmol/L (136-145)
[2022-03-17 09:55] LABS: Alanine Aminotransferase 220 U/L (12-78); Albumin Level 4.3 g/dl (3.5-5.0); Albumin/Globulin Ratio 1.2 (1.1-1.8); Alkaline Phosphatase 106 U/L (38-126); Anion Gap 13.4 mEq/L (5-15); Aspartate Amino Transferase 129 U/L (17-59); Bilirubin,Total 0.7 mg/dl (0.2-1.3); Blood Urea Nitrogen 15 mg/dl (9-20); Calcium 9.1 mg/dl (8.4-10.2); Carbon Dioxide 27 mmol/L (22.0-30.0); Creatinine Clearance Estimated 251 mL/min (50-200); Estimated Glomerular Filt Rate 124 ml/min (>60); GFR (African American) 150 ML/MIN (>60); Globulin 3.5 g/dL (1.3-3.2); Lipase 77 U/L (23-300); Total Protein,Serum 7.8 g/dl (6.3-8.2)
[2022-03-17 09:59] LABS: Glucose 452 mg/dl (74-100)
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
[2022-03-17 11:43] LABS: POC Glucose,Bedside 360 (70-110)
[2022-03-17 12:12] VITALS: BP 140/88; PULSE 112; RESP 19; TEMP 36.7; O2SAT 98
--- NOTE | 2022-03-17 12:17 | PC.NURSE ---
employer contacted, pt had drug screen and alcohol test per lab completed
== END 2022-03-17 12:22 | disposition home or self-care (01) ==
PROVIDERS: Emergency Provider Emergency Medicine; PCP Internal Medicine Adolescent Medicine
DX: R07.81 Pleurodynia (principal); R10.9 Unspecified abdominal pain; S61.212A Laceration without foreign body of right middle finger without damage to nail, initial encounter; E11.65 Type 2 diabetes mellitus with hyperglycemia; N20.0 Calculus of kidney; J84.10 Pulmonary fibrosis, unspecified; Z79.84 Long term (current) use of oral hypoglycemic drugs; Z79.899 Other long term (current) drug therapy; Z91.018 Allergy to other foods; V69.88XA Occupant (driver) (passenger) of heavy transport vehicle injured in other specified transport accidents, initial encounter
CPT/HCPCS: 71260; 74177; 80053; 82962; 83690; 85025; 96372; 99285; Q9967

== ENCOUNTER → 2022-03-21 15:18 | Outpatient (CLI) | payer OTHER, SELFPAY ==
--- NOTE | 2022-03-21 15:35 | XR_ITS ---
FINAL REPORT CLINICAL HISTORY: CHEST WALL PAIN, injury lt ant ribpain FINDINGS: TWO-VIEW CHEST Two views of the chest were obtained. The heart size and pulmonary vascularity are within normal limits. The mediastinum is normal. No acute pulmonary abnormality is identified. There is no pneumothorax. The bony thorax is intact. IMPRESSION: No acute process. Reviewed, Interpreted and Dictated by Ashvin Verma MD Transcribed by Nila Pedersen Authenticated and [facility]
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
== END ==
PROVIDERS: PCP Internal Medicine Adolescent Medicine; Visit Provider Internal Medicine Adolescent Medicine
DX: R07.89 Other chest pain (principal)
CPT/HCPCS: 71046; 71101

== ENCOUNTER → 2022-07-15 06:20 | Outpatient (CLI) | payer OTHER, SELFPAY ==
[2022-07-15 07:28] LABS: Basophils # 0.1 K/mm3 (0-0.2); Basophils % 0.8 % (0.1-2.0); Eosinophils # 0.3 K/mm3 (0.0-0.4); Eosinophils % 4.2 % (0.1-12.0); Hematocrit 44.5 % (42.0-52.0); Hemoglobin 15.1 g/dL (14.1-18.0); Lymphocytes # 1.8 K/mm3 (0.7-4.5); Lymphocytes % 27.2 % (10-50); Mean Corpuscular Volume 88.1 fl (80-94); Mean Platelet Volume 7.8 fl (7.4-10.4); Monocytes # 0.4 K/mm3 (0.1-1.0); Monocytes % 5.9 % (1.7-9.3); Neutrophils # 4.1 K/mm3 (1.8-7.8); Platelet Count 215 K/mm3 (142-424); Red Blood Count 5.05 M/mm3 (4.60-6.20); Red Cell Distribution Width 12.4 % (11.5-17.5); White Blood Count 6.6 K/mm3 (4.8-10.8)
[2022-07-15 08:02] LABS: Alanine Aminotransferase 135 U/L (12-78); Albumin Level 4.1 g/dl (3.5-5.0); Albumin/Globulin Ratio 1.4 (1.1-1.8); Alkaline Phosphatase 81 U/L (38-126); Aspartate Amino Transferase 77 U/L (17-59); Bilirubin,Total 0.8 mg/dl (0.2-1.3); Blood Urea Nitrogen 14 mg/dl (9-20); Calcium 8.3 mg/dl (8.4-10.2); Carbon Dioxide 29 mmol/L (22.0-30.0); Chloride 101 mmol/L (98-107); Chol/HDL Ratio 5.2 (1-3.5); Cholesterol 199 mg/dl (140-200); Estimated Glomerular Filt Rate 147 ml/min (>60); GFR (African American) 178 ML/MIN (>60); Globulin 2.9 g/dL (1.3-3.2); Glucose 179 mg/dl (74-100); HDL Cholesterol 38 mg/dl (40-60); Sodium 136 mmol/L (136-145); Triglycerides 114 mg/dl (30-150); VLDL Cholesterol 23 mg/dL (0-40)
[2022-07-15 09:16] LABS: Creatinine,Urine Random 162 mg/dL (Not Estab.)
[2022-07-15 09:30] LABS: Hemoglobin A1C 7.8 % (4.0-6.0)
== END ==
PROVIDERS: PCP Internal Medicine Adolescent Medicine; Visit Provider Nurse Practitioner Family
DX: I10 Essential (primary) hypertension (principal); E11.9 Type 2 diabetes mellitus without complications; Z79.84 Long term (current) use of oral hypoglycemic drugs
CPT/HCPCS: 36415; 80053; 80061; 82043; 82570; 83036; 85025

== ENCOUNTER 2022-11-30 19:42 | Emergency (ER) | payer OTHER, SELFPAY ==
[2022-11-30 19:43] VITALS: BP 188/125; PULSE 102; RESP 18; TEMP 36.7; O2SAT 96; BMI 37.8
--- NOTE | 2022-11-30 19:49 | EXP.UTC ---
Discharge Plan Disposition Patient Disposition: Home, Self-Care Condition: Good Prescriptions Prescriptions: New aztvmknn-ybzywrspp-CE 3.5-10,000-1 mg/mL-unit/mL-% solution 4 drp Ear-Right Q8H 7 Days Qty: 10 0RF No Action metformin 500 MG tablet 500 mg PO DAILY lisinopril 10 MG tablet 10 mg PO DAILY ertugliflozin 15 MG tablet 15 mg PO DAILY Referrals Follow up/Referrals: Mariusz Mondragon MD [Physician] - See instructions Zach Patel MD [Primary Care Provider] - See instructions Activity Restrictions/Add. Instructions Additional Instructions/Restrictions: Use the ear drops as directed. Take OTC tylenol or ibuprofen for pain. Follow up with your regular doctor. GO TO THE ER FOR ANY WORSENING SYMPTOMS Clinical Impressions Clinical Impression: Burn of first degree of unspecified ear [any part, except ear drum], initial encounter Instructions Patient Instructions: How to Instill Ear Drops, DI for Gomez Discharge ED Provider: Rui Morgan [facility] General Stated complaint: AO ear pain, 11/30 1800 Time Seen by Provider: 11/30/22 19:49 History of Present Illness Provider Complaint: He states that he was using a roll contour grinder on a piece of metal when a hot piece of metal flew into his right ear. He states that he immediately felt burning in the ear. He used his keys to get the piece of metal out of his ear. This happened about 1 hour prior to his arrival here. He states that he is hearing fine out of the ear. He is still having ear pain though. He is a diabetic. Related Data Home Medications Medication Instructions Recorded Confirmed ertugliflozin 15 mg tablet 15 mg PO DAILY Diabetes 03/29/20 10/24/20 lisinopril 10 mg tablet 10 mg PO DAILY Hypertension 03/29/20 10/24/20 metformin 500 mg tablet 500 mg PO DAILY Diabetes 03/29/20 10/24/20 Previous Rx's Medication Instructions Recorded jelhgzwl-oofbwfoqo-kwuyryxgr 3.5 4 drp Ear-Right Q8H 7 days #10 mL 11/30/22 mg/mL-10,000 unit/mL-1 % ear solution Allergies Allergy/AdvReac Type Severity Reaction Status Date / Time coconut Allergy Severe ANAPHYLAXIS Verified 03/29/20 20:33 [From COCONUT (FOOD/DRUG)] PFSH PFSH Disclaimer: The information contained in this section may have been updated after the patient was seen, as this information can be updated by other users. Social History Smoking Status: Never smoker alcohol intake: never current occupational status: employed Travel in the last 8 weeks: None ROS Obtained: Yes All systems reviewed & no additional complaints except as documented Constitutional Constitutional: Denies chills and Denies fever(s) Eyes Eyes: Denies eye discharge ENT Ears, Nose, Mouth, and Throat: Reports as per HPI, Denies dizziness, Reports otalgia and Denies sore throat Cardiovascular Cardiovascular: Denies chest pain Respiratory Respiratory: Denies shortness of breath, Denies chest congestion, Denies cough, Denies stridor and Denies wheezing Gastrointestinal Gastrointestingal: Denies nausea or vomiting Musculoskeletal Musculoskeletal: Reports system reviewed and no additional complaints, except as documented and Denies arthralgias Integumentary/Breasts Skin/Breast: Denies rash Neurologic Neurologic: Denies dizziness and Denies paresthesias Allergic/Immunologic Allergic/Immunologic: Denies wheezing Physical Exam General General appearance: alert and in no apparent distress Head Head exam: atraumatic, normocephalic and normal inspection Eye Eye exam: Present normal appearance, PERRL and EOMI ENT ENT exam: Present normal oropharynx, mucous membranes moist, TM's normal bilaterally and normal external ear exam Expanded ENT Exam TM/Canal exam: Right TM: erythema (there is mild redness of the ear canal just past the opening. the tympanic membrane is not harmed) Neck Neck exam: Present normal inspection, full ROM and trachea midline; Absent meningismus or lymphadenopathy
[2022-11-30 19:58] VITALS: BP 188/125; PULSE 102; RESP 18; TEMP 36.7; O2SAT 96
== END 2022-11-30 20:00 | disposition home or self-care (01) ==
PROVIDERS: Emergency Provider Nurse Practitioner Family; PCP Internal Medicine Adolescent Medicine
DX: T20.111A Burn of first degree of right ear [any part, except ear drum], initial encounter (principal); W31.1XXA Contact with metalworking machines, initial encounter; X18.XXXA Contact with other hot metals, initial encounter
CPT/HCPCS: 99204; 99212; G0463

== ENCOUNTER → 2023-04-04 07:10 | Outpatient (CLI) | payer OTHER, SELFPAY ==
[2023-04-04 07:16] LABS: Microscopic, Urine URINE MICROSCOPIC (MICROSCOPIC)
[2023-04-04 07:44] LABS: Basophils % 0.3 % (0.1-2.0); Eosinophils # 0.2 K/mm3 (0.0-0.4); Eosinophils % 2.7 % (0.1-12.0); Hematocrit 45.7 % (42.0-52.0); Hemoglobin 16.5 g/dL (14.1-18.0); Lymphocytes # 2.1 K/mm3 (0.7-4.5); Lymphocytes % 25.6 % (10-50); Mean Corpuscular HGB Conc 36.1 g/dL (31.8-35.4); Mean Corpuscular Hemoglobin 30.9 pg (27.0-31.2); Mean Corpuscular Volume 85.5 fl (80-94); Mean Platelet Volume 8.1 fl (7.4-10.4); Monocytes # 0.4 K/mm3 (0.1-1.0); Monocytes % 5.2 % (1.7-9.3); Neutrophils # 5.3 K/mm3 (1.8-7.8); Neutrophils % 66.2 % (37.0-80.0); Platelet Count 207 K/mm3 (142-424); Red Blood Count 5.34 M/mm3 (4.60-6.20); Red Cell Distribution Width 12.4 % (11.5-17.5)
[2023-04-04 08:05] LABS: Hemoglobin A1C 13.6 % (4.0-6.0)
[2023-04-04 08:27] LABS: Chloride 94 mmol/L (98-107)
[2023-04-04 08:28] LABS: Potassium 4.3 mmoL/L (3.5-5.1); Sodium 133 mmol/L (136-145)
[2023-04-04 08:30] LABS: Alanine Aminotransferase 213 U/L (12-78); Albumin Level 4.5 g/dl (3.5-5.0); Albumin/Globulin Ratio 1.4 (1.1-1.8); Alkaline Phosphatase 99 U/L (38-126); Anion Gap 12.3 mEq/L (5-15); Aspartate Amino Transferase 85 U/L (17-59); Bilirubin,Total 0.6 mg/dl (0.2-1.3); Blood Urea Nitrogen 21 mg/dl (9-20); Carbon Dioxide 31 mmol/L (22.0-30.0); Cholesterol 234 mg/dl (140-200); Estimated Glomerular Filt Rate 123 ml/min (>60); GFR (African American) 149 ML/MIN (>60); Globulin 3.3 g/dL (1.3-3.2); Glucose 342 mg/dl (74-100); Total Protein,Serum 7.8 g/dl (6.3-8.2); Triglycerides 266 mg/dl (30-150); VLDL Cholesterol 53 mg/dL (0-40)
[2023-04-04 08:31] LABS: Calcium 9.5 mg/dl (8.4-10.2); Chol/HDL Ratio 5.2 (1-3.5); HDL Cholesterol 45 mg/dl (40-60)
[2023-04-04 08:42] LABS: Direct LDL Cholesterol 137.04 mg/dL (100-129)
[2023-04-04 10:06] LABS: Creatinine,Urine Random 71 mg/dL (Not Estab.)
[2023-04-04 10:49] LABS: Appearance,Urine CLEAR (Clear); Bilirubin,Urine Negative (Negative); Blood, Urine Negative (Negative); Color,Urine YELLOW (Yellow); Glucose,Urine (UA) 3+ (Negative); Ketones,Urine Negative (Negative); Leukocyte Esterase,Urine Negative (Negative); Nitrate,Urine Negative (Negative); Protein,Urine Negative (Negative); Urobilinogen,Urine 0.2 EU/dl (0.2)
[2023-04-04 11:07] LABS: Bacteria,Urine Trace /lpf; Squamous Epithelial Cell,Urine Occasional #/hpf (0-5)
[2023-04-04 11:13] LABS: Prostate Specific Ag Screen 0.6 ng/ml (0.0-4.0)
== END ==
PROVIDERS: PCP Nurse Practitioner Family; Visit Provider Nurse Practitioner Family
DX: R35.1 Nocturia (principal); I10 Essential (primary) hypertension; E11.9 Type 2 diabetes mellitus without complications; Z79.84 Long term (current) use of oral hypoglycemic drugs
CPT/HCPCS: 36415; 80053; 80061; 81001; 82043; 82570; 83036; 85025; G0103

== ENCOUNTER 2023-04-21 18:15 | Emergency (ER) | payer OTHER, SELFPAY ==
[2023-04-21 18:40] VITALS: BP 107/47; PULSE 94; RESP 20; TEMP 38.9; O2SAT 93; BMI 39.9
--- NOTE | 2023-04-21 18:44 | EXP.UTC ---
Discharge Plan Disposition Patient Disposition: Home, Self-Care Condition: Good Prescriptions Prescriptions: New oseltamivir [Tamiflu] 75 mg capsule 75 mg PO BID Qty: 10 0RF benzonatate [benzonatate] 100 mg capsule 100 mg PO TIDP PRN (Reason: Cough) Qty: 30 0RF amoxicillin [amoxicillin] 875 mg tablet 875 mg PO Q12H Qty: 20 0RF ondansetron 4 mg Tablet,Disintegrating 4 mg PO Q8H PRN (Reason: Nausea) Qty: 12 0RF No Action metformin 500 mg tablet 500 mg PO DAILY Patient Comments: TAKE 2 TABLETS BY MOUTH TWICE DAILY FOR 30 DAYS lisinopril-hydrochlorothiazide 20-12.5 mg tablet 1 tab PO DAILY Patient Comments: TAKE 1 TABLET BY MOUTH ONCE DAILY citalopram 10 mg tablet 10 mg PO DAILY amlodipine 5 mg tablet 5 mg PO DAILY Patient Comments: TAKE 1 TABLET BY MOUTH ONCE DAILY omeprazole 20 mg capsule,delayed release(DR/EC) 20 mg PO DAILY Patient Comments: TAKE 1 CAPSULE BY MOUTH ONCE DAILY Referrals Follow up/Referrals: Zach Patel MD [Primary Care Provider] - See instructions Activity Restrictions/Add. Instructions Additional Instructions/Restrictions: Drink plenty of fluids. Take tylenol or ibuprofen for pain or fever. Take the medications as directed. Follow up with your regular doctor. GO TO THE ER FOR ANY WORSENING SYMPTOMS Clinical Impressions Clinical Impression: Acute viral syndrome, Pharyngitis Stand Alone Forms Stand Alone Forms: Work/School Release Instructions Patient Instructions: DI for Influenza -- Adult, DI for Viral Syndrome, Oseltamivir Discharge ED Provider: Rui Morgan [facility] General Stated complaint: h/a, cough, SOA Time Seen by Provider: 04/21/23 18:44 History of Present Illness Provider Complaint: He states that since yesterday he has had fever/chills/body aches, n/v/d, chest congestion, and sore throat. Related Data Home Medications Medication Instructions Recorded Confirmed amlodipine 5 mg tablet 5 mg PO DAILY 04/21/23 04/21/23 citalopram 10 mg tablet 10 mg PO DAILY 04/21/23 04/21/23 lisinopril 20 1 tab PO DAILY 04/21/23 04/21/23 mg-hydrochlorothiazide 12.5 mg tablet metformin 500 mg tablet 500 mg PO DAILY 04/21/23 04/21/23 omeprazole 20 mg capsule,delayed 20 mg PO DAILY 04/21/23 04/21/23 release Previous Rx's Medication Instructions Recorded amoxicillin 875 mg tablet 875 mg PO Q12H #20 tabs 04/21/23 benzonatate 100 mg capsule 100 mg PO TIDP PRN Cough #30 caps 04/21/23 ondansetron 4 mg disintegrating 4 mg PO Q8H PRN Nausea #12 tabs 04/21/23 tablet oseltamivir 75 mg capsule (Tamiflu) 75 mg PO BID #10 caps 04/21/23 Allergies Allergy/AdvReac Type Severity Reaction Status Date / Time coconut Allergy Severe ANAPHYLAXIS Verified 03/29/20 20:33 [From COCONUT (FOOD/DRUG)] [facility] Disclaimer: The information contained in this section may have been updated after the patient was seen, as this information can be updated by other users. Medical History (Updated 04/21/23 @ 19:29 by Rui Morgan APRN) Depression Diabetes mellitus, type 2 Hypertension Migraine Social History Smoking Status: Never smoker alcohol intake: never current occupational status: employed Travel in the last 8 weeks: None ROS Obtained: Yes All systems reviewed & no additional complaints except as documented Constitutional Constitutional: Reports chills and Reports fever(s) Eyes Eyes: Denies eye discharge ENT Ears, Nose, Mouth, and Throat: Reports as per HPI Cardiovascular Cardiovascular: Denies chest pain Respiratory Respiratory: Denies chest congestion and Reports cough Gastrointestinal Gastrointestingal: Reports nausea; Denies abdominal pain, constipation, cramping, diarrhea or vomiting Musculoskeletal Musculoskeletal: Denies arthralgias Integumentary/Breasts Skin/Breast: Denies rash Neurologic Neurologic: Denies paresthesias Physical Exam General General appearance: alert and in no apparent distress Head Head exam: atraumatic, normocephalic and normal inspection Eye Eye exam: Present normal appearance, PERRL and EOMI ENT ENT exam: Present normal exam, normal oropharynx, mucous membranes moist, TM's normal bilaterally and normal external ear exam Neck Neck exam: Present normal inspection, full ROM and trachea midline; Absent meningismus or lymphadenopathy Chest Chest inspection: Present normal inspection and symmetric chest wall rise; Absent tenderness Respiratory Respiratory exam: Present normal lung sounds bilaterally; Absent respiratory distress Cardiovascular Cardiovascular exam: Present regular rate and normal rhythm; Absent JVD Abdominal Exam Abdominal exam: Present soft and normal bowel sounds; Absent distention, tenderness or guarding Extremities Exam Extremities exam: Present normal inspection, full ROM and normal capillary refill; Absent calf tenderness Back Exam Back exam: Present normal inspection; Absent tenderness Neurological Exam Neurological exam: Present alert and oriented X3 Psychiatric Psychiatric exam: Present normal affect and normal mood Skin Skin exam: Present warm, dry, intact and normal color Lymphatic Lymphatic Findings: no adenopathy Medical Decision Making Medical Records Medical records reviewed: No I reviewed the patient's medical records. Kadeem Inquiry Pt receiving controlled substance: No Lab Data Lab results reviewed: Yes I reviewed the patient's lab results.
[2023-04-21 19:01] LABS: UTC Influenza A Antigen Negative (Negative); UTC Influenza B Antigen Negative (Negative)
[2023-04-21] MEDS: ACETAMINOPHEN 325MG TAB 650 MG PO (19:06)
[2023-04-21] MEDS: ONDANSETRON 4MG ODT 4 MG SL (19:06)
[2023-04-21 19:27] VITALS: BP 107/47; PULSE 94; RESP 20; TEMP 38.9; O2SAT 93
== END 2023-04-21 19:37 | disposition home or self-care (01) ==
PROVIDERS: Emergency Provider Nurse Practitioner Family; PCP Internal Medicine Adolescent Medicine
DX: J02.9 Acute pharyngitis, unspecified (principal); R51.9 Headache, unspecified; R05.9 Cough, unspecified; R11.0 Nausea; R50.9 Fever, unspecified; B34.9 Viral infection, unspecified; I10 Essential (primary) hypertension; E11.9 Type 2 diabetes mellitus without complications; Z79.84 Long term (current) use of oral hypoglycemic drugs
CPT/HCPCS: 87635; 87804; 99212; 99214; G0463

== ENCOUNTER 2023-04-26 07:02 | Outpatient (CLI) | payer OTHER, SELFPAY ==
--- NOTE | 2023-04-26 07:17 | US_ITS ---
FINAL REPORT CLINICAL HISTORY: ELEVATED LIVER ENZYMES COMPARISON: None FINDINGS: HEPATIC ULTRASOUND Multiple transverse and longitudinal scans were performed of the right upper quadrant of the abdomen. The liver is fatty infiltrated. No intrahepatic duct dilatation is identified. No evidence of common bile duct dilatation is identified. Doppler exam shows normal directional flow within patent hepatic and portal veins. No gallstones are seen. No evidence of perihepatic fluid is identified. The pancreas is partially obscured. IMPRESSION: Fatty liver. Reviewed, Interpreted and Dictated by Robert Avila III, MD Transcribed by Beatriz Mathur Authenticated and [facility]
== END 2023-04-26 23:59 ==
LOC: RAD 07:03
PROVIDERS: PCP Nurse Practitioner Family; Visit Provider Nurse Practitioner Family
DX: R74.8 Abnormal levels of other serum enzymes (principal)
CPT/HCPCS: 76705

== ENCOUNTER 2023-08-12 16:50 | Emergency (ER) | payer OTHER, SELFPAY ==
[2023-08-12 17:00] VITALS: BP 199/83; PULSE 80; RESP 18; TEMP 36.6; O2SAT 98; BMI 38.0
--- NOTE | 2023-08-12 17:00 | ED_ITS ---
Discharge Plan Disposition Patient Disposition: Home, Self-Care Condition: Good Prescriptions Prescriptions: New sulfamethoxazole-trimethoprim [Bactrim DS] 800-160 mg Tablet 1 tab PO BID Qty: 20 0RF cephalexin 500 mg capsule 500 mg PO QID Qty: 40 0RF mupirocin 2 % ointment 1 applic topical TID 7 Days Qty: 15 0RF No Action metformin 500 mg tablet 500 mg PO DAILY Patient Comments: TAKE 2 TABLETS BY MOUTH TWICE DAILY FOR 30 DAYS lisinopril-hydrochlorothiazide 20-12.5 mg tablet 1 tab PO DAILY Patient Comments: TAKE 1 TABLET BY MOUTH ONCE DAILY citalopram 10 mg tablet 10 mg PO DAILY amlodipine 5 mg tablet 5 mg PO DAILY Patient Comments: TAKE 1 TABLET BY MOUTH ONCE DAILY omeprazole 20 mg capsule,delayed release(DR/EC) 20 mg PO DAILY Patient Comments: TAKE 1 CAPSULE BY MOUTH ONCE DAILY Referrals Follow up/Referrals: Zach Patel MD [Primary Care Provider] - See instructions Activity Restrictions/Add. Instructions Additional Instructions/Restrictions: Keep the affected area clean and dry. Follow up with your regular doctor. Take the antibiotics as directed and apply the topical antibiotics as directed. Apply warm wet compresses to the affected area three or four times per day. GO TO THE ER FOR ANY WORSENING SYMPTOMS Clinical Impressions Clinical Impression: Abscess of face Instructions Patient Instructions: Cephalexin, Ceftriaxone Injection, Mupirocin, DI for Skin Abscess Discharge ED Provider: Rui Morgan [facility] [place] General Stated complaint: swollen spot on LT congregation Time Seen by Provider: 08/12/23 17:00 History of Present Illness Provider Complaint: He states that for the past 2 days he has had a red tender area on the left side of his face near this congregation area. He denies any injury. He states that it felt like a pimple, but then it has began to swell and become more tender to touch. He denies any fever/chills. He denies any eye complaints or any other complaints. Related Data Home Medications Medication Instructions Recorded Confirmed amlodipine 5 mg tablet 5 mg PO DAILY 04/21/23 08/12/23 citalopram 10 mg tablet 10 mg PO DAILY 04/21/23 08/12/23 lisinopril 20 1 tab PO DAILY 04/21/23 08/12/23 mg-hydrochlorothiazide 12.5 mg tablet metformin 500 mg tablet 500 mg PO DAILY 04/21/23 08/12/23 omeprazole 20 mg capsule,delayed 20 mg PO DAILY 04/21/23 08/12/23 release Previous Rx's Medication Instructions Recorded cephalexin 500 mg capsule 500 mg PO QID #40 caps 08/12/23 mupirocin 2 % topical ointment 1 applic topical TID 7 days #15 08/12/23 grams sulfamethoxazole 800 1 tab PO BID #20 tabs 08/12/23 mg-trimethoprim 160 mg tablet (Bactrim DS) Allergies Allergy/AdvReac Type Severity Reaction Status Date / Time coconut Allergy Severe ANAPHYLAXIS Verified 08/12/23 17:12 [From COCONUT (FOOD/DRUG)] [facility] Disclaimer: The information contained in this section may have been updated after the patient was seen, as this information can be updated by other users. Medical History (Updated 08/12/23 @ 17:51 by Rui Morgan APRN) Depression Migraine Diabetes mellitus, type 2 Hypertension Social History Smoking Status: Never smoker alcohol intake: never current occupational status: employed Travel in the last 8 weeks: None ROS Obtained: Yes All systems reviewed & no additional complaints except as documented Constitutional Constitutional: Denies chills and Denies fever(s) Eyes Eyes: Denies eye discharge ENT Ears, Nose, Mouth, and Throat: Denies dizziness, Denies otalgia and Denies sore throat Cardiovascular Cardiovascular: Denies chest pain Respiratory Respiratory: Denies shortness of breath, Denies chest congestion, Denies cough, Denies stridor and Denies wheezing Gastrointestinal Gastrointestingal: Denies nausea or vomiting Musculoskeletal Musculoskeletal: Reports system reviewed and no additional complaints, except as documented and Denies arthralgias Integumentary/Breasts Skin/Breast: Reports as per HPI and Reports redness Neurologic Neurologic: Denies dizziness and Denies paresthesias Allergic/Immunologic Allergic/Immunologic: Denies wheezing Physical Exam General General appearance: alert and in no apparent distress Head Head exam: atraumatic, normocephalic and normal inspection Eye Eye exam: Present normal appearance, PERRL and EOMI ENT ENT exam: Present normal exam, normal oropharynx, mucous membranes moist, TM's normal bilaterally and normal external ear exam Neck Neck exam: Present normal inspection, full ROM and trachea midline; Absent meningismus or lymphadenopathy Chest Chest inspection: Present normal inspection and symmetric chest wall rise; Absent tenderness Respiratory Respiratory exam: Present normal lung sounds bilaterally; Absent respiratory distress Cardiovascular Cardiovascular exam: Present regular rate and normal rhythm; Absent JVD Abdominal Exam Abdominal exam: Present soft and normal bowel sounds; Absent distention, t enderness or guarding Extremities Exam Extremities exam: Present normal inspection, full ROM and normal capillary refill; Absent calf tenderness Back Exam Back exam: Present normal inspection; Absent tenderness Neurological Exam Neurological exam: Present alert and oriented X3 Psychiatric Psychiatric exam: Present normal affect and normal mood Skin Skin exam: Present other (on the left side of his face near his congregation area there is an area of redness that measures 2 cm diameter. no open wound and no drainage. there is mild swelling in this area also. ) Lymphatic Lymphatic Findings: no adenopathy Medical Decision Making Medical Records Medical records reviewed: No I reviewed the patient's medical records. Kadeem Inquiry Pt receiving controlled substance: No
[2023-08-12] MEDS: cefTRIAXone 1GM VIAL 1 GM IM (17:34)
[2023-08-12] MEDS: LIDOCAINE 1% 5ML PF VIAL IM (17:34)
[2023-08-12 17:55] VITALS: BP 199/83; PULSE 80; RESP 18; TEMP 36.6; O2SAT 98
== END 2023-08-12 17:55 | disposition home or self-care (01) ==
PROVIDERS: Emergency Provider Nurse Practitioner Family; PCP Internal Medicine Adolescent Medicine
DX: L02.01 Cutaneous abscess of face (principal); E11.9 Type 2 diabetes mellitus without complications; I10 Essential (primary) hypertension; Z79.84 Long term (current) use of oral hypoglycemic drugs
CPT/HCPCS: 96372; 99212; 99214; G0463; J0696

== ENCOUNTER 2023-09-11 08:08 | Emergency (ER) | payer SELFPAY ==
[2023-09-11 08:20] VITALS: BP 151/105; PULSE 92; RESP 20; TEMP 37.1; O2SAT 96; BMI 38.0
--- NOTE | 2023-09-11 08:34 | EXP.UTC ---
Discharge Plan Disposition Patient Disposition: Home, Self-Care Condition: Good Prescriptions Prescriptions: New benzonatate 100 mg capsule 100 mg PO TID PRN (Reason: cough) Qty: 30 0RF fluticasone propionate [Flonase Allergy Relief] 50 mcg/actuation spray,suspension 2 spray intranasal DAILY Qty: 16 0RF Rx Instructions: administer into each nostril daily amoxicillin 875 mg tablet 875 mg PO BID 10 Days Qty: 20 0RF No Action sulfamethoxazole-trimethoprim [Bactrim DS] 800-160 mg Tablet 1 tab PO BID Qty: 20 0RF cephalexin 500 mg capsule 500 mg PO QID Qty: 40 0RF mupirocin 2 % ointment 1 applic topical TID 7 Days Qty: 15 0RF metformin 500 mg tablet 500 mg PO DAILY Patient Comments: TAKE 2 TABLETS BY MOUTH TWICE DAILY FOR 30 DAYS lisinopril-hydrochlorothiazide 20-12.5 mg tablet 1 tab PO DAILY Patient Comments: TAKE 1 TABLET BY MOUTH ONCE DAILY citalopram 10 mg tablet 10 mg PO DAILY amlodipine 5 mg tablet 5 mg PO DAILY Patient Comments: TAKE 1 TABLET BY MOUTH ONCE DAILY omeprazole 20 mg capsule,delayed release(DR/EC) 20 mg PO DAILY Patient Comments: TAKE 1 CAPSULE BY MOUTH ONCE DAILY Referrals Follow up/Referrals: Zach Patel MD [Primary Care Provider] - See instructions Activity Restrictions/Add. Instructions Additional Instructions/Restrictions: *Monitor Temp, Over the counter Motrin or Tylenol as directed/as needed Tylenol every 4 hours and Motrin every 6 hours (as long as your family doctor has told you that you can take it) for fever or pain. and straight to ER if unable to lower temp less than 101.0 after medication given *Warm salt water gargles may help to soothe the throat *Throat Lozenges? *Warm fluids like tea with honey may help to soothe the throat? *Sleep elevated *Humidifier/Vaporizer Over the counter Cloraspetic spray may help with throat iritation Follow up with your Family Doctor for recheck of your blood pressure Your throat swab was sent for culture. Those results are typically sent to your primary care. Be sure to follow up in 2-3 days with your family doctor/primary care physician if no improvement so they can review those result and treat if necessary. If you don?t have a primary care doctor, I recommend you get one but in the mean time, you will have to return to a walk in clinic Follow up IMMEDIATELY for new or worsening symptoms or no Noticeable improvement over the next 48-72 hours. 911 for difficulty breathing or swallowing Clinical Impressions Clinical Impression: Pharyngitis Qualifiers: Pharyngitis/tonsillitis etiology: unspecified etiology Qualified Code(s): J02.9 - Acute pharyngitis, unspecified Stand Alone Forms Stand Alone Forms: Work/School Release Instructions Patient Instructions: Sore Throat, DI for Nasal Congestion Discharge ED Provider: Jessica Blackwell [facility] General Stated complaint: cough, sore throat, lethargic Mode of Arrival: Ambulatory Source of Information: Patient Limitations: No Limitations Time Seen by Provider: 09/11/23 08:34 Description of Symptoms (Recalled from Triage Doc. by RN): PATIENT C/O SORE THROAT, SOA LAST NIGHT, HEADACHE, AND COUGH SINCE YESTERDAY HEENT Symptoms (Recalled from RN notes): Yes Resp Symptoms (Recalled from RN notes): Yes Skin Symptoms (Recalled from RN notes): No MS Symptoms (Recalled from RN notes): No Functional Status (Recalled from RN notes): WNL History of Present Illness Provider Complaint: Patient states that he he has been having sore scratchy throat and started yesterday getting worse, runny nose, drainage in the back of his throat and last night when he was trying to sleep his throat was burning so bad when he would breath that it kept him up States the only thing that made it feel better was Mountain Dew states this morning his throat was still hurting and he was feeling achy all over Denies fever, denies SOA and denies chest congestion Related Data Home Medications Medication Instructions Recorded Confirmed amlodipine 5 mg tablet 5 mg PO DAILY 04/21/23 08/12/23 citalopram 10 mg tablet 10 mg PO DAILY 04/21/23 08/12/23 lisinopril 20 1 tab PO DAILY 04/21/23 08/12/23 mg-hydrochlorothiazide 12.5 mg tablet metformin 500 mg tablet 500 mg PO DAILY 04/21/23 08/12/23 omeprazole 20 mg capsule,delayed 20 mg PO DAILY 04/21/23 08/12/23 release Previous Rx's Medication Instructions Recorded cephalexin 500 mg capsule 500 mg PO QID #40 caps 08/12/23 mupirocin 2 % topical ointment 1 applic topical TID 7 days #15 08/12/23 grams sulfamethoxazole 800 1 tab PO BID #20 tabs 08/12/23 mg-trimethoprim 160 mg tablet (Bactrim DS) amoxicillin 875 mg tablet 875 mg PO BID 10 days #20 tabs 09/11/23 benzonatate 100 mg capsule 100 mg PO TID PRN cough #30 caps 09/11/23 fluticasone propionate 50 2 spray intranasal DAILY #16 grams 09/11/23 mcg/actuation nasal spray,suspension (Flonase Allergy Relief) Allergies Allergy/AdvReac Type Severity Reaction Status Date / Time coconut Allergy Severe ANAPHYLAXIS Verified 08/12/23 17:12 [From COCONUT (FOOD/DRUG)] Worker's Comp Is this a Worker's Comp case?: No [facility] Disclaimer: The information contained in this section may have been updated after the patient was seen, as this information can be updated by other users. Medical History (Updated 09/11/23 @ 08:54 by Jessica Blackwell APRN) Depression Migraine Diabetes mellitus, type 2 Hypertension Social History Smoking Status: Never smoker alcohol intake: never current occupational status: employed Travel in the last 8 weeks: None ROS Obtained: Yes All systems reviewed & no additional complaints except as documented and Yes Systems reviewed as appropriate & no additional complaints except as documented Constitutional Constitutional: Reports system reviewed and no additional complaints, except as documented, Reports as per HPI, Reports body ache and Reports headache(s) ENT Ears, Nose, Mouth, and Throat: Reports system reviewed and no additional complaints, except as documented, Reports as per HPI, Reports headache(s) and Reports sore throat Cardiovascular Cardiovascular: Reports system reviewed and no additional complaints, except as documented and Reports as per HPI Respiratory Respiratory: Reports system reviewed and no additional complaints, except as documented, Reports as per HPI, Reports shortness of breath (richter in throat when he breaths) and Reports cough Gastrointestinal Gastrointestingal: Reports system reviewed and no additional complaints, except as documented and as per HPI Neurologic Neurologic: Reports headache(s) Physical Exam General General appearance: alert and in no apparent distress ENT ENT exam: Present mucous membranes moist Expanded ENT Exam Throat exam: Present tonsillar erythema and other (pnd noted) Respiratory Respiratory exam: Present normal lung sounds bilaterally; Absent respiratory distress or wheezes Cardiovascular Cardiovascular exam: Present regular rate, normal rhythm and normal heart sounds Neurological Exam Neurological exam: Present alert, oriented X3 and normal gait Medical Decision Making Kadeem Inquiry Pt receiving controlled substance: No Kadeem was queried for this patient: No Vital Signs: 09/11/23 08:20 Temperature 98.8 F Temperature Source Oral Pulse Rate [Left Brachial] 92 H Respiratory Rate 20 Blood Pressure [Left Arm] 151/105 H Blood Pressure Mean [Left Arm] 120 Blood Pressure Source [Left Arm] Automatic Cuff Blood Pressure Position [Left Arm] Sitting 02 Sat by Pulse Oximetry 96 Oxygen Delivery Method Room Air Lab Data Lab results reviewed: Yes I reviewed the patient's lab results.
[2023-09-11 08:36] LABS: UTC Strep Screen (Rapid) Negative (Negative)
[2023-09-11 08:58] VITALS: BP 132/99; PULSE 92; RESP 20; TEMP 37.1; O2SAT 96
== END 2023-09-11 09:03 | disposition home or self-care (01) ==
PROVIDERS: Emergency Provider Nurse Practitioner; PCP Internal Medicine Adolescent Medicine
DX: J02.9 Acute pharyngitis, unspecified (principal); R09.81 Nasal congestion; R09.82 Postnasal drip
CPT/HCPCS: 87880; 99212; 99214; G0463

== ENCOUNTER 2023-11-26 10:06 | Emergency (ER) | payer OTHER, SELFPAY ==
[2023-11-26] VITALS (30 sets, daily range): BP systolic 106–166; BP diastolic 70–146; PULSE 67–83; RESP 11–23; TEMP 36.6–36.7; O2SAT 92–100; BMI 38.6
--- NOTE | 2023-11-26 10:06 | ECG_ITS ---
APPROVED REPORT Exam: Resting ECG HR:78 bpm ECG Measurements Heart Rate 78 AXES NM 188 P 58 QRSd 110 QRS 50 QT 378 T 8 QTc 411 Conclusion SINUS RHYTHM NORMAL ECG Electronically signed by : ALMITA GLASS, 11/26/2023 16:20:57
--- NOTE | 2023-11-26 10:11 | HMH.EDGENADL ---
Discharge Plan Disposition Patient Disposition: Home, Self-Care Condition: Good Chief Complaint: Chest Pain Prescriptions Prescriptions: No Action sulfamethoxazole-trimethoprim [Bactrim DS] 800-160 mg Tablet 1 tab PO BID Qty: 20 0RF cephalexin 500 mg capsule 500 mg PO QID Qty: 40 0RF mupirocin 2 % ointment 1 applic topical TID 7 Days Qty: 15 0RF metformin 500 mg tablet 500 mg PO DAILY Patient Comments: TAKE 2 TABLETS BY MOUTH TWICE DAILY FOR 30 DAYS lisinopril-hydrochlorothiazide 20-12.5 mg tablet 1 tab PO DAILY Patient Comments: TAKE 1 TABLET BY MOUTH ONCE DAILY citalopram 10 mg tablet 10 mg PO DAILY amlodipine 5 mg tablet 5 mg PO DAILY Patient Comments: TAKE 1 TABLET BY MOUTH ONCE DAILY omeprazole 20 mg capsule,delayed release(DR/EC) 20 mg PO DAILY Patient Comments: TAKE 1 CAPSULE BY MOUTH ONCE DAILY benzonatate 100 mg capsule 100 mg PO TID PRN (Reason: cough) Qty: 30 0RF fluticasone propionate [Flonase Allergy Relief] 50 mcg/actuation spray,suspension 2 spray intranasal DAILY Qty: 16 0RF Rx Instructions: administer into each nostril daily amoxicillin 875 mg tablet 875 mg PO BID 10 Days Qty: 20 0RF Referrals Follow up/Referrals: Provider,Referral, MD [Referring] - See instructions Activity Restrictions/Add. Instructions Additional Instructions/Restrictions: You have been evaluated in the ED for your complaints. You may follow-up with your PCP in the next 3 to 5 days. Please return to ED for any new or worsening symptoms. Please limit sugar intake. Please drink plenty of water over the next several days. As discussed please follow-up with your primary care provider on tomorrow for reassessment and discussion for your diabetes which is uncontrolled at this time. Please continue taking your metformin. Clinical Impressions Clinical Impression: Uncontrolled diabetes mellitus, Chest pain Print Language Print Language: Latvian Discharge ED Provider: Federico Tamez General Adult HPI General Chief complaint: Chest Pain Stated complaint: chest pain Time Seen by Provider: 11/26/23 10:10 History of Present Illness HPI narrative: 42-year-old male with past medical history significant for HTN, diabetes, presents today for evaluation concerning central chest pain which he characterizes as a pressure-like sensation since this morning. He also states that his throat has been burning over the past couple days. Reports associated shortness of breath. Denies any fevers, chills, nausea, vomiting, abdominal pain, dysuria, hematuria. Denies radiation of pain to his back. He takes lisinopril at nighttime. No further complaints. Related Data Home Medications ?Medication ?Instructions ?Recorded ?Confirmed amlodipine 5 mg tablet 5 mg PO DAILY 04/21/23 08/12/23 citalopram 10 mg tablet 10 mg PO DAILY 04/21/23 08/12/23 lisinopril 20 1 tab PO DAILY 04/21/23 08/12/23 mg-hydrochlorothiazide 12.5 mg tablet metformin 500 mg tablet 500 mg PO DAILY 04/21/23 08/12/23 omeprazole 20 mg capsule,delayed 20 mg PO DAILY 04/21/23 08/12/23 release Previous Rx's ?Medication ?Instructions ?Recorded cephalexin 500 mg capsule 500 mg PO QID #40 caps 08/12/23 mupirocin 2 % topical ointment 1 applic topical TID 7 days #15 08/12/23 grams sulfamethoxazole 800 1 tab PO BID #20 tabs 08/12/23 mg-trimethoprim 160 mg tablet (Bactrim DS) amoxicillin 875 mg tablet 875 mg PO BID 10 days #20 tabs 09/11/23 benzonatate 100 mg capsule 100 mg PO TID PRN cough #30 caps 09/11/23 fluticasone propionate 50 2 spray intranasal DAILY #16 grams 09/11/23 mcg/actuation nasal spray,suspension (Flonase Allergy Relief) Allergies Allergy/AdvReac Type Severity Reaction Status Date / Time coconut Allergy Severe ANAPHYLAXIS Verified 08/12/23 17:12 [From COCONUT (FOOD/DRUG)] [facility] Disclaimer: The information contained in this section may have been updated after the patient was seen, as this information can be updated by other users. Medical History (Updated 11/26/23 @ 14:00 by Federico Tamez DO) Depression Migraine Diabetes mellitus, type 2 Hypertension Social History Smoking Status: Never smoker alcohol intake: never current occupational status: employed Travel in the last 8 weeks: None ROS Obtained: Yes All systems reviewed & no additional complaints except as documented Physical Exam General General appearance: alert and in no apparent distress Head Head exam: atraumatic and normocephalic Eye Eye exam: Present normal appearance, PERRL and EOMI ENT ENT exam: Present normal oropharynx and mucous membranes moist Neck Neck exam: Present full ROM; Absent meningismus Respiratory Respiratory exam: Absent respiratory distress, wheezes, stridor or accessory muscle use Cardiovascular Cardiovascular exam: Present normal rhythm and tachycardia Abdominal Exam Abdominal exam: Present soft; Absent distention, tenderness, guarding, rebound or rigidity Neurological Exam Neurological exam: Present alert, oriented X3 and CN II-XII intact; Absent motor sensory deficit Psychiatric Psychiatric exam: Present normal affect and normal mood Skin Skin exam: Present warm and dry Medical Decision Making Medical Records Medical records reviewed: Yes I reviewed the patient's medical records. Kadeem Inquiry Pt receiving controlled substance: No Kadeem was queried for this patient: No Vital Signs: 11/26/23 10:08 11/26/23 10:30 11/26/23 11:00 Temperature 98.0 F Temperature Source Oral Pulse Rate 80 76 Pulse Rate [Left Radial] 77 Respiratory Rate 16 11 L 14 Blood Pressure 119/77 106/80 L Blood Pressure [Right Arm] 166/146 H Blood Pressure Mean Blood Pressure Mean [Right Arm] 152 02 Sat by Pulse Oximetry 100 94 L 94 L Oxygen Delivery Method Room Air Room Air Room Air 11/26/23 11:05 11/26/23 11:10 11/26/23 11:15 Temperature Temperature Source Pulse Rate 75 72 72 Pulse Rate [Left Radial] Respiratory Rate 14 12 19 Blood Pressure 123/75 110/71 123/71 Blood Pressure [Right Arm] Blood Pressure Mean Blood Pressure Mean [Right Arm] 02 Sat by Pulse Oximetry 92 L 95 94 L Oxygen Delivery Method Room Air Room Air Room Air 11/26/23 11:20 11/26/23 11:25 11/26/23 11:30 Temperature Temperature Source Pulse Rate 77 79 83 Pulse Rate [Left Radial] Respiratory Rate 16 16 14 Blood Pressure 109/73 L 126/73 121/75 Blood Pressure [Right Arm] Blood Pressure Mean Blood Pressure Mean [Right Arm] 02 Sat by Pulse Oximetry 97 94 L 94 L Oxygen Delivery Method Room Air Room Air Room Air 11/26/23 11:35 11/26/23 11:40 11/26/23 11:45 Temperature Temperature Source Pulse Rate 80 79 82 Pulse Rate [Left Radial] Respiratory Rate 14 15 13 Blood Pressure 126/80 123/81 113/82 Blood Pressure [Right Arm] Blood Pressure Mean Blood Pressure Mean [Right Arm] 02 Sat by Pulse Oximetry 92 L 93 L 93 L Oxygen Delivery Method Room Air Room Air Room Air 11/26/23 11:50 11/26/23 12:21 11/26/23 12:25 Temperature Temperature Source Pulse Rate 77 78 73 Pulse Rate [Left Radial] Respiratory Rate 17 18 23 Blood Pressure 111/75 116/81 118/87 Blood Pressure [Right Arm] Blood Pressure Mean Blood Pressure Mean [Right Arm] 02 Sat by Pulse Oximetry 95 95 94 L Oxygen Delivery Method Room Air Room Air Room Air 11/26/23 12:30 11/26/23 12:35 11/26/23 12:45 Temperature Temperature Source Pulse Rate 77 72 72 Pulse Rate [Left Radial] Respiratory Rate 19 16 15 Blood Pressure 113/87 127/79 120/77 Blood Pressure [Right Arm] Blood Pressure Mean Blood Pressure Mean [Right Arm] 02 Sat by Pulse Oximetry 95 95 92 L Oxygen Delivery Method Room Air Room Air Room Air 11/26/23 12:50 11/26/23 13:00 11/26/23 13:05 Temperature Temperature Source Pulse Rate 71 73 67 Pulse Rate [Left Radial] Respiratory Rate 18 20 16 Blood Pressure 120/85 108/70 L 122/71 Blood Pressure [Right Arm] Blood Pressure Mean Blood Pressure Mean [Right Arm] 02 Sat by Pulse Oximetry 92 L 94 L 97 Oxygen Delivery Method Room Air Room Air Room Air 11/26/23 13:10 11/26/23 13:15 11/26/23 13:20 Temperature Temperature Source Pulse Rate 72 67 69 Pulse Rate [Left Radial] Respiratory Rate 12 16 17 Blood Pressure 116/73 115/75 120/70 Blood Pressure [Right Arm] Blood Pressure Mean Blood Pressure Mean [Right Arm] 02 Sat by Pulse Oximetry 93 L 94 L 94 L Oxygen Delivery Method Room Air Room Air Room Air 11/26/23 13:25 11/26/23 13:31 11/26/23 13:35 Temperature Temperature Source Pulse Rate 69 75 68 Pulse Rate [Left Radial] Respiratory Rate 14 14 15 Blood Pressure 121/75 120/77 129/81 Blood Pressure [Right Arm] Blood Pressure Mean Blood Pressure Mean [Right Arm] 02 Sat by Pulse Oximetry 94 L 96 96 Oxygen Delivery Method Room Air Room Air Room Air 11/26/23 13:40 11/26/23 13:45 11/26/23 13:45 Temperature Temperature Source Pulse Rate 70 71 Pulse Rate [Left Radial] Respiratory Rate 17 15 Blood Pressure 139/92 H 127/88 Blood Pressure [Right Arm] Blood Pressure Mean 100 Blood Pressure Mean [Right Arm] 02 Sat by Pulse Oximetry 96 95 Oxygen Delivery Method Room Air Lab Data Lab Results 11/26/23 10:10: WBC 6.2, RBC 5.04, Hgb 15.5, Hct 46.5, MCV 92.2, MCH 30.7, MCHC 33.3, RDW 13.6, Plt Count 204, MPV 8.3, Neut % (Auto) 62.9, Lymph % (Auto) 29.0, [place] % (Auto) 4.6, Eos % (Auto) 2.8, Baso % (Auto) 0.8, Neut # (Auto) 3.9, Lymph # (Auto) 1.8, [place] # (Auto) 0.3, Eos # (Auto) 0.2, Baso # (Auto) 0.1, D-Dimer 0.36, Sodium 135 L, Potassium 4.4, Chloride 98, Carbon Dioxide 30, Anion Gap 11.4, BUN 16, Creatinine 0.70, Estimated Creat Clear 246, Estimated GFR 123, Est GFR ( Amer) 148, Glucose 420 H*, Hemoglobin A1c 12.5 H, Calcium 9.1, Total Bilirubin 0.7, AST 123 H, ALT 181 H, Alkaline Phosphatase 85, Troponin I < 0.01, NT-Pro-B Natriuret Pep < 20.0, Total Protein 7.5, Albumin 4.3, Globulin 3.2, Albumin/Globulin Ratio 1.3, Acetone Level None detected 11/26/23 10:59: VBG pH 7.37, VBG pCO2 40.4, VBG pO2 83.8 H, VBG HCO3 23.0, VBG Total CO2 24.2, VBG O2 Saturation 95.9 H, VBG Base Excess -2.2, VBG Lactic Acid 2.3 H 11/26/23 12:56: Troponin I < 0.01 11/26/23 10:10 11/26/23 10:10 Orders (Tests/Meds): ED MEDICATIONS Discontinued Medications Generic Name Dose Route Start Last Admin Trade Name Zain PRN Reason Stop Dose Admin Aspirin 324 mg 11/26/23 10:12 11/26/23 10:14 Aspirin 81mg Chewable Tablet PO 11/26/23 10:13 324 mg ONCE ONE Administration Sodium Chloride 1,000 mls @ 999 mls/hr 11/26/23 10:53 11/26/23 11:00 Sod Chlor 0.9% 1000ml Bag IV 11/26/23 11:53 999 mls/hr .Q1H1M ONE Administration Morphine Sulfate 4 mg 11/26/23 10:16 11/26/23 10:25 Morphine 4mg/Ml Syringe IV 11/26/23 10:17 4 mg ONCE ONE Administration Nitroglycerin 0.4 mg 11/26/23 10:12 11/26/23 10:14 Nitroglycerin 0.4mg Sl Tablet SL 11/26/23 10:13 0.4 mg ONCE ONE Administration Ondansetron HCl 4 mg 11/26/23 10:16 11/26/23 10:25 Ondansetron 4mg/2ml Vial IV 11/26/23 10:17 4 mg ONCE ONE Administration ORDERS Category Date Time Status CXR 2 view (NOT portable) [XR chest 2V] Stat Exams 11/26/23 10:12 Completed Acetone, Serum (Rapid) Stat Lab 11/26/23 10:10 Completed BNP [NT Pro Brain Natriuretic Pep.] Stat Lab 11/26/23 10:10 Completed Complete Blood Count Auto Diff Stat Lab 11/26/23 10:10 Completed Comprehensive Metabolic Panel Stat Lab 11/26/23 10:10 Completed D-Dimer Stat Lab 11/26/23 10:10 Completed Hemoglobin A1C Stat Lab 11/26/23 10:10 Completed Troponin I Q3H Lab 11/26/23 12:56 Completed Troponin I Q3H Lab 11/26/23 16:15 Ordered Troponin I Stat Lab 11/26/23 10:10 Completed VBG [Venous Blood Gas] Stat RT 11/26/23 10:59 Completed HEART Score History (anamnesis): Moderately suspicious ECG: Normal Age: <45 years Risk factors: 1-2 risk factors Troponin: </= normal limit HEART Score: 2 Medical Decision Narrative: 42-year-old male with past medical history significant for HTN, diabetes, presents today for evaluation concerning central chest pain which he characterizes as a pressure-like sensation since this morning. He also states that his throat has been burning over the past couple days. On assessment he was hemodynamically stable and in no acute distress. He was mildly tachycardic in the low 100s. His abdomen was soft nondistended and nontender palpation. No peripheral edema noted. Other physical exam findings unremarkable differential diagnoses include not limited to STEMI, NSTEMI, pleural effusion, pneumonia, pulmonary embolism, among others. EKG was personally inter by me and was remarkable for sinus rhythm with a rate of 78 bpm. No ischemic changes. MO interval is not prolonged at 188. QRS is 110. QTc 411. CBC was nonactionable. D-dimer was 0.36. VBG did not show any acidosis or CO2 retention. Lactic acid was 2.3. Glucose elevated at 420 on CMP. I did order for hemoglobin A1c that was 12.5. No ketones were noted. Initial and second troponin less than 0.01. BNP unremarkable.Chest x-ray did not show any acute cardiopulmonary disease processes. I did give patient a liter bolus of IV fluids and reassess his blood glucose level and it decreased to 286. Discussed with patient ED workup results and current plan. He sees Dr. Almendarez and states that he will call office to follow-up tomorrow for reassessment for his diabetes which is uncontrolled at this time. He will continue to take his metformin and I have encouraged fluid intake and decrease sugar intake. He verbalized understanding and agreement with plan. I provided him with return precautions. He was subsequently discharged hemodynamically stable and in no acute distress. Critical Care Critical Care Time Critical Care Time: No
--- NOTE | 2023-11-26 10:12 | XR_ITS ---
PROCEDURE INFORMATION: Exam: XR Chest Exam date and time: 11/26/2023 10:25 AM Age: 43 years old Clinical indication: Chest wall pain; Additional info: Chest pain & dizziness x 2 days TECHNIQUE: Imaging protocol: Radiologic exam of the chest. Views: 2 views. COMPARISON: CR XR CHEST 2V 03/21/2022 3:41 PM FINDINGS: Lungs: Unremarkable. No consolidation. Pleural spaces: Unremarkable. No pleural effusion. No pneumothorax. Heart/Mediastinum: Unremarkable. No cardiomegaly. Bones/joints: Unremarkable. IMPRESSION: No acute findings.
--- NOTE | 2023-11-26 10:13 | PC.NURSE ---
Dr. Tamez at BS for pt eval
[2023-11-26] MEDS: NITROGLYCERIN 0.4MG SL TABLET 0.4 MG SL (10:14)
[2023-11-26] MEDS: ASPIRIN 81MG CHEWABLE TABLET 324 MG PO (10:14)
[2023-11-26] MEDS: MORPHINE 4MG/ML SYRINGE 4 MG IV (10:25)
[2023-11-26] MEDS: ONDANSETRON 4MG/2ML VIAL 4 MG IV (10:25)
[2023-11-26 10:33] LABS: Basophils # 0.1 K/mm3 (0-0.2); Basophils % 0.8 % (0.1-2.0); Eosinophils # 0.2 K/mm3 (0.0-0.4); Eosinophils % 2.8 % (0.1-12.0); Hematocrit 46.5 % (42.0-52.0); Hemoglobin 15.5 g/dL (14.1-18.0); Lymphocytes # 1.8 K/mm3 (0.7-4.5); Mean Corpuscular HGB Conc 33.3 g/dL (31.8-35.4); Mean Corpuscular Hemoglobin 30.7 pg (27.0-31.2); Mean Corpuscular Volume 92.2 fl (80-94); Mean Platelet Volume 8.3 fl (7.4-10.4); Monocytes # 0.3 K/mm3 (0.1-1.0); Monocytes % 4.6 % (1.7-9.3); Neutrophils # 3.9 K/mm3 (1.8-7.8); Neutrophils % 62.9 % (37.0-80.0); Platelet Count 204 K/mm3 (142-424); Red Blood Count 5.04 M/mm3 (4.60-6.20); Red Cell Distribution Width 13.6 % (11.5-17.5); White Blood Count 6.2 K/mm3 (4.8-10.8)
[2023-11-26 10:39] LABS: Albumin Level 4.3 g/dl (3.5-5.0); Chloride 98 mmol/L (98-107); Potassium 4.4 mmoL/L (3.5-5.1); Sodium 135 mmol/L (136-145)
[2023-11-26 10:41] LABS: Blood Urea Nitrogen 16 mg/dl (9-20); Creatinine Clearance Estimated 246 mL/min (50-200); Estimated Glomerular Filt Rate 123 ml/min (>60); GFR (African American) 148 ML/MIN (>60)
[2023-11-26 10:42] LABS: Alanine Aminotransferase 181 U/L (12-78); Albumin/Globulin Ratio 1.3 (1.1-1.8); Alkaline Phosphatase 85 U/L (38-126); Anion Gap 11.4 mEq/L (5-15); Aspartate Amino Transferase 123 U/L (17-59); Bilirubin,Total 0.7 mg/dl (0.2-1.3); Calcium 9.1 mg/dl (8.4-10.2); Carbon Dioxide 30 mmol/L (22.0-30.0); Globulin 3.2 g/dL (1.3-3.2); Total Protein,Serum 7.5 g/dl (6.3-8.2)
[2023-11-26 10:46] LABS: D-Dimer 0.36 ug/mL (0.0-0.5)
[2023-11-26 10:49] LABS: Glucose 420 mg/dl (74-100)
[2023-11-26 10:50] LABS: NT Pro Brain Natriuretic Pep. < 20.0 pg/mL (0-125)
--- NOTE | 2023-11-26 10:59 | PC.NURSE ---
RT notified of VBG order and blood sent to lab
[2023-11-26] MEDS: 0.9 % SODIUM CHLORIDE 1000ML 1,000 ML 999 ML IV (11:00)
[2023-11-26 11:06] LABS: VBG Base Excess -2.2 mmol/L (-2.4-2.3); VBG Oxygen Saturation 95.9 % (50-70); VBG PCO2 40.4 mmol/L (35-51); VBG PH 7.37 mmol/L (7.31-7.41); VBG PO2 83.8 mmol/L (28-40); VBG Total CO2 24.2 mmol/L (23-27)
[2023-11-26 11:07] LABS: Lactate Venous 2.3 mmol/L (0.4-2.0)
[2023-11-26 11:25] LABS: Acetone, Serum (Rapid) None Detected (None Detect); Hemoglobin A1C 12.5 % (4.0-6.0); Troponin I < 0.01 ng/ml (0.00-0.034)
[2023-11-26 13:32] LABS: Troponin I < 0.01 ng/ml (0.00-0.034)
--- NOTE | 2023-11-26 14:08 | PC.NURSE ---
Dr. Tamez at BS to update pt on results and POC
[2023-11-26 15:08] LABS: Reflex Lactic Add Lactic Reflex
== END 2023-11-26 14:14 | disposition home or self-care (01) ==
PROVIDERS: Emergency Provider Emergency Medicine; PCP Internal Medicine Adolescent Medicine
DX: E11.65 Type 2 diabetes mellitus with hyperglycemia (principal); R07.9 Chest pain, unspecified; I10 Essential (primary) hypertension; F32.A Depression, unspecified; Z79.84 Long term (current) use of oral hypoglycemic drugs
CPT/HCPCS: 71046; 80053; 82009; 82803; 83036; 83880; 84484; 85025; 85378; 93005; 96361; 96374; 96375; 99285; J2270; J2405

== ENCOUNTER 2024-01-03 00:07 | Observation (INO) | payer OTHER, SELFPAY ==
[2024-01-03] VITALS (29 sets, daily range): BP systolic 111–179; BP diastolic 71–117; PULSE 67–110; RESP 16–20; TEMP 36.4–36.9; O2SAT 95–99; BMI 39.0; BMI 37.3
--- NOTE | 2024-01-03 | IR_ITS ---
APPROVED REPORT Patient Location: Inpatient Residential Assistant: MARA Brennan RT (R) PROCEDURES Left heart catheterization Left ventriculogram Selective coronary angiogram Drug-eluting stent deployment to the proximal and mid chronically occluded LAD Intravascular ultrasound to the LAD INDICATION Chronically occluded LAD, Acute non-ST elevation myocardial infarction, Coronary artery disease Informed consent was obtained prior to the procedure. COMPLICATIONS None Estimated Blood Loss: Less than 10 mls TECHNIQUE One percent lidocaine used to anesthetize the right anterior aspect of the wrist. The right radial artery was accessed via the Seldinger technique. A 6 Jamaican sheath was placed in the right radial artery. 2.5 mg of Verapamil, 800 mcg of nitroglycerin, 1mg Lidocaine and 5000 U Heparin were given through the arterial sheath. The papa catheter was also used to perform left heart catheterization, left ventriculogram and selective coronary angiogram. At the end the diagnostic angiogram therapeutic heparin was administered giving a therapeutic ACT and the guide catheter was placed in left main artery followed by Choice PT extra-support wire placed across the chronic occlusion. A 2 mm x 12 mm balloon was deployed on 2 occasions to open the stenosis and restore ROSEMARY-3 flow. Following this a 3.5 x 22 mm Reva frontier stent was placed in the proximal segment at 20 phyllis reducing the stenosis. An additional 3.5 x 8 mm Suleman frontier stent was placed proximal to the for stent yet still overlapping and deployed at 20 phyllis. Following this and intravascular ultrasound probe was advanced which demonstrated there was heavy plaque burden in the proximal segment and the stent was undersized. A 4 mm x 12 mm noncompliant balloon was then advanced in the proximal segment of the 2 stents and deployed at 20 phyllis to post dilate. An additional 3.5 x 38 mm Reva frontier stent was then placed distal to the 22 mm stent yet still overlapping and deployed at 14 phyllis. The balloon was brought back and deployed at 22 phyllis to mesh the 2 stents. Following this a 3 mm x 12 mm Suleman frontier stent was placed distal to the 38 mm stent yet still overlapping and deployed at 16 phyllis. The balloon was brought back and deployed at 24 phyllis to mesh the 2 stents. ROSEMARY 0 flow was present at the beginning the procedure with ROSEMARY-3 flow at the end of the procedure. At the end the procedure the apparatus was removed the sheath was removed and hemostasis was achieved using TR banding patient was transferred to the postop putting in stable condition ANGIOGRAPHIC RESULTS The left main artery Normal The left anterior descending artery Proximally occluded. The vessel filled partially via right to left collaterals. Following revascularization there was wide patency of the ostial proximal and mid segment through 4 contiguous stents. Distal to the stent the distal LAD had additional 80 to 90% stenoses which approaches the apex. The LAD was large and did wrap the apex. The first diagonal artery is jailed with ROSEMARY-3 flow with an ostial 80 to 90% stenosis while a small to moderate-sized second diagonal artery is also jailed with an ostial 80% stenosis accompanied by ROSEMARY-3 flow The circumflex artery Is a codominant large caliber vessel with proximal and mid vessel 30% stenoses. 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 Effient 10 mg daily plus aspirin 81 mg daily 2. LDL less than 55 to achieve that high intensity statin 3. Recommend insulin and aggressive diabetes control. Patient has persistent severe disease in the distal LAD which cannot be bypassed due to the distal location. Stenting can be performed however this is less desirable. Aggressive risk factor modification with aggressive control of diabetes is necessary 4. I would like to bring patient back to [facility] in 4 weeks after diabetes is better controlled. The circumflex artery still supplies a moderate amount of myocardium in the obtuse marginal artery as described above. Given this is not the culprit vessel this vessel should not be electively stented until patient has better glycemic control 5. Formal echocardiogram to evaluate ejection fraction and determine if LifeVest may be warranted 6. Avoidance of tobacco products 7. Cardiac rehabilitation Electronically signed by : Sae Mai MD 01/03/2024 11:31:10
--- NOTE | 2024-01-03 00:05 | ECG_ITS ---
APPROVED REPORT Exam: Resting ECG HR:102 bpm ECG Measurements Heart Rate 102 AXES SD 164 P 19 QRSd 112 QRS 50 QT 342 T 7 QTc 401 Conclusion SINUS TACHYCARDIA MODERATE INTRAVENTRICULAR CONDUCTION DELAY [110+ ms QRS DURATION] NONSPECIFIC T-WAVE ABNORMALITY ABNORMAL RHYTHM ECG No STEMI Electronically signed by : SHAVON SIN, 01/03/2024 06:32:22
--- NOTE | 2024-01-03 00:12 | XR_ITS ---
PROCEDURE INFORMATION: Exam: XR Chest Exam date and time: 01/03/2024 12:12 AM Age: 43 years old Clinical indication: Pain; Chest pressure; Additional info: Cp TECHNIQUE: Imaging protocol: Radiologic exam of the chest. Views: 2 views. COMPARISON: CR XR CHEST 2V 11/26/2023 10:25 AM FINDINGS: Lungs: Low lung volumes without definite focal airspace consolidation. Pleural spaces: No pneumothorax. Heart/Mediastinum: Unremarkable cardiomediastinal silhouette. Bones/joints: No acute osseous findings. IMPRESSION: Low lung volumes without definite focal airspace consolidation.
[2024-01-03 00:20] LABS: Basophils # 0.1 K/mm3 (0-0.2); Basophils % 1.1 % (0.1-2.0); Eosinophils # 0.2 K/mm3 (0.0-0.4); Hematocrit 50.1 % (42.0-52.0); Hemoglobin 16.3 g/dL (14.1-18.0); Lymphocytes # 1.7 K/mm3 (0.7-4.5); Lymphocytes % 29.6 % (10-50); Mean Corpuscular HGB Conc 32.6 g/dL (31.8-35.4); Mean Corpuscular Hemoglobin 30.6 pg (27.0-31.2); Mean Platelet Volume 8.6 fl (7.4-10.4); Monocytes # 0.3 K/mm3 (0.1-1.0); Monocytes % 5.9 % (1.7-9.3); Neutrophils # 3.4 K/mm3 (1.8-7.8); Neutrophils % 60.3 % (37.0-80.0); Platelet Count 199 K/mm3 (142-424); Red Blood Count 5.32 M/mm3 (4.60-6.20); White Blood Count 5.7 K/mm3 (4.8-10.8)
--- NOTE | 2024-01-03 00:20 | ED_ITS ---
Discharge Plan Disposition Patient Disposition: Admitted Prescriptions Prescriptions: No Action lisinopril-hydrochlorothiazide 20-12.5 mg tablet 1 tab PO DAILY Patient Comments: TAKE 1 TABLET BY MOUTH ONCE DAILY glimepiride 2 mg tablet 2 mg PO DAILY Patient Comments: TAKE 1 TABLET BY MOUTH ONCE DAILY metformin 1,000 mg tablet 1,000 mg PO DAILYDM Patient Comments: TAKE 1 TABLET BY MOUTH ONCE DAILY omeprazole 20 mg capsule,delayed release(DR/EC) 20 mg PO BID Patient Comments: TAKE 1 CAPSULE BY MOUTH TWICE DAILY dapagliflozin propanediol [Farxiga] 10 mg tablet 10 mg PO DAILY Patient Comments: TAKE 1 TABLET BY MOUTH ONCE DAILY Referrals Follow up/Referrals: Provider,Referral, [Referring] - See instructions Clinical Impressions Clinical Impression: Hyperglycemia, Acidosis, lactic, Metabolic acidosis, normal anion gap (NAG), Non-ST elevation AK (NSTEMI) Print Language Print Language: Frisian Discharge ED Provider: Benita Suarez General Adult HPI General Chief complaint: Chest Pain Stated complaint: CP Time Seen by Provider: 01/03/24 00:11 Mode of Arrival: Ambulatory Source of Information: Patient Limitations: No Limitations Description of Symptoms (Recalled from ER Triage Doc. 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 Patient reports he was driving here when it started to feel like someone hit him in the chest with a baseball bat. Patient denies cardiac history, but reports a clean heart cath 4 years ago. History of Present Illness HPI narrative: 43-year-old male presents with 3 hours of chest pain. Patient states shortly after eating dinner tonight, he had tightening of the chest and burning in the throat. He states his pain progressed to feeling like someone hit him in the chest with a baseball bat. He states it comes in waves. Patient does take medications for reflux that were recently prescribed to him. He does not have a personal history of cardiac problems and reportedly a clean heart cath a few years ago. Patient states he did have emesis on the way here but it was clear, nonbloody, nonbilious. Patient denies any dizziness, no radiation of the chest pain to the back, arm, or jaw. He is not dizzy, afebrile, no other associated symptoms at this time. Related Data Home Medications ?Medication ?Instructions ?Recorded ?Confirmed dapagliflozin propanediol 10 mg 10 mg PO DAILY 01/03/24 01/03/24 tablet (Farxiga) glimepiride 2 mg tablet 2 mg PO DAILY 01/03/24 01/03/24 lisinopril 20 1 tab PO DAILY 01/03/24 01/03/24 mg-hydrochlorothiazide 12.5 mg tablet metformin 1,000 mg tablet 1,000 mg PO DAILYDM 01/03/24 01/03/24 omeprazole 20 mg capsule,delayed 20 mg PO BID 01/03/24 01/03/24 release Allergies Allergy/AdvReac Type Severity Reaction Status Date / Time coconut Allergy Severe ANAPHYLAXIS Verified 08/12/23 17:12 [From COCONUT (FOOD/DRUG)] [facility] Disclaimer: The information contained in this section may have been updated after the patient was seen, as this information can be updated by other users. Medical History (Updated 01/03/24 @ 01:13 by Benita Suarez MD) Depression Migraine Diabetes mellitus, type 2 Hypertension Social History Smoking Status: Never smoker alcohol intake: never current occupational status: employed Travel in the last 8 weeks: None ROS Obtained: Yes All systems reviewed & no additional complaints except as documented Positive ROS per HPI Physical Exam General General appearance: alert and in no apparent distress Head Head exam: atraumatic and normocephalic Eye Eye exam: Present PERRL and EOMI ENT ENT exam: Present mucous membranes moist Neck Neck exam: Present normal inspection and full ROM Chest Chest inspection: Present symmetric chest wall rise; Absent tenderness Respiratory Respiratory exam: Present normal lung sounds bilaterally; Absent respiratory distress, wheezes or stridor Cardiovascular Cardiovascular exam: Present normal rhythm, tachycardia and other (+2 pulses in all extremities) Abdominal Exam Abdominal exam: Present soft; Absent distention or tenderness Extremities Exam Extremities exam: Present full ROM Neurological Exam Neurological exam: Present alert, oriented X3, CN II-XII intact and normal gait; Absent motor sensory deficit Psychiatric Psychiatric exam: Present normal affect and normal mood Skin Skin exam: Present warm and dry Medical Decision Making Medical Records Medical records reviewed: Yes I reviewed the patient's medical records. MR Comment: Patient had facial abscess treated with Bactrim, Keflex, mupirocin in July. Patient was evaluated for chest pain in the ER at the beginning of November. His description of symptoms is identical to those with which she presented today. At that time with similar initial vitals. He had significant elevated blood sugar at that time with an A1c of 12.5. He was discharged in stable condition. Kadeem Inquiry Pt receiving controlled substance: No Vital Signs: 01/03/24 00:08 01/03/24 00:17 01/03/24 00:30 Temperature 98.4 F Temperature Source Oral Pulse Rate 100 H 92 H Pulse Rate [Left] 103 H Respiratory Rate 20 16 16 Blood Pressure 179/111 H 132/101 H Blood Pressure [Right Arm] 174/117 H Blood Pressure Mean [Right Arm] 136 Blood Pressure Source Automatic Cuff Automatic Cuff Blood Pressure Source [Right Arm] Automatic Cuff Blood Pressure Position Sitting Sitting Blood Pressure Position [Right Arm] Sitting 02 Sat by Pulse Oximetry 99 97 99 Oxygen Delivery Method Room Air Room Air Room Air 01/03/24 01:00 Temperature Temperature Source Pulse Rate 97 H Pulse Rate [Left] Respiratory Rate 16 Blood Pressure 136/99 H Blood Pressure [Right Arm] Blood Pressure Mean [Right Arm] Blood Pressure Source Automatic Cuff Blood Pressure Source [Right Arm] Blood Pressure Position Sitting Blood Pressure Position [Right Arm] 02 Sat by Pulse Oximetry 97 Oxygen Delivery Method Room Air Lab Data Lab Results 01/03/24 00:11: WBC 5.7, RBC 5.32, Hgb 16.3, Hct 50.1, MCV 94.0, MCH 30.6, MCHC 32.6, RDW 13.0, Plt Count 199, MPV 8.6, Neut % (Auto) 60.3, Lymph % (Auto) 29.6, Powell % (Auto) 5.9, Eos % (Auto) 3.0, Baso % (Auto) 1.1, Neut # (Auto) 3.4, Lymph # (Auto) 1.7, Powell # (Auto) 0.3, Eos # (Auto) 0.2, Baso # (Auto) 0.1, PT 10.2, INR 0.90, Sodium 131 L, Potassium 4.4, Chloride 94 L, Carbon Dioxide 30, Anion Gap 11.4, BUN 11, Creatinine 0.70, Estimated Creat Clear 242, Estimated GFR 123, Est GFR ( Amer) 148, Glucose 604 H*, Calcium 9.0, Total Bilirubin 0.9, A ST 129 H, ALT 272 H, Alkaline Phosphatase 80, Troponin I 0.08 H, Total Protein 8.3 H, Albumin 4.6, Globulin 3.7 H, Albumin/Globulin Ratio 1.2 01/03/24 00:25: Acetone Level None detected 01/03/24 00:33: VBG pH 7.29 L, VBG pCO2 59.5 H, VBG pO2 26.9 L, VBG HCO3 27.8, V BG Total CO2 29.6 H, VBG O2 Saturation 47.9 L, VBG Base Excess 1.1, VBG Lactic Acid 2.9 H 01/03/24 00:11 01/03/24 00:11 Orders (Tests/Meds): ED MEDICATIONS Generic Name Dose Route Start Last Admin Trade Name Freq PRN Reason Stop Dose Admin Lactated Ringer's 1,000 mls @ 999 mls/hr 01/03/24 00:47 01/03/24 00:47 Lactated Ringer's 1000 Ml Bag IV 01/03/24 01:47 999 mls/hr .Q1H1M ONE Administration Discontinued Medications Generic Name Dose Route Start Last Admin Trade Name Freq PRN Reason Stop Dose Admin Aspirin 324 mg 01/03/24 00:12 01/03/24 00:21 Aspirin 81mg Chewable Tablet PO 01/03/24 00:13 324 mg ONCE ONE Administration Belladonna Alkaloids 60 ml 01/03/24 00:20 01/03/24 00:21 Belladonna Alkaloids 60 Ml Ml PO 01/03/24 00:21 60 ml ONCE ONE Administration Metoprolol Tartrate 25 mg 01/03/24 01:09 01/03/24 01:12 Metoprolol Tartrate 50mg Tablet PO 01/03/24 01:10 25 mg ONCE ONE Administration ORDERS Category Date Time Status XR chest 2V Stat Exams 01/03/24 00:12 Taken Acetone, Serum (Rapid) Stat Lab 01/03/24 00:25 Completed Complete Blood Count Auto Diff Stat Lab 01/03/24 00:11 Completed Comprehensive Metabolic Panel Stat Lab 01/03/24 00:11 Completed D-Dimer Stat Lab 01/03/24 00:11 Received Prothrombin Time INR Stat Lab 01/03/24 00:11 Completed Troponin I Q3H Lab 01/03/24 00:11 Completed Troponin I Q3H Lab 01/03/24 03:15 Ordered Troponin I Q3H Lab 01/03/24 06:15 Ordered VBG [Venous Blood Gas] Stat RT 01/03/24 00:33 Completed Medical Decision Narrative: In summary, this 43-year-old male with a history of poorly controlled diabetes, hypertension comorbidities of current condition, increased risk of AK as well as his overall morbidity and the amount of data to be reviewed presents to the emergency department today with chest pain/pressure with burning sensation in the throat. On initial evaluation patient is mildly tachycardic but otherwise hemodynamically stable, afebrile, pain is not reproducible with deep inspiration or palpation of the chest, no peripheral edema, pulses equal in all extremities, no abdominal tenderness, GCS 15, no neurodeficits. Differential diagnosis includes but is not limited to ACS, PE, pleural effusion, pneumothorax, esophageal spasm, electrolyte abnormality, among others. Based on these concerns, I ordered serum labs, cardiac workup, D-dimer, chest x-ray. ECG personally interpreted demonstrates sinus tachycardia, rate 102, normal axis, normal FL and QTc, there is Q waves with isolated T wave inversion in lead III, nonspecific, no contiguous changes, no STEMI. This ECG is similar to ECG at the beginning of November when patient presented with identical symptoms. Patient received GI cocktail for treatment. Labs personally reviewed demonstrate significant hyperglycemia, nonanion gap metabolic acidosis, elevated lactate at 2.9, patient is receiving IV fluids, acetone negative patient is not in DKA, initial troponin elevated at 0.08 concerning for NSTEMI. Repeat ECG was personally interpreted demonstrating normal sinus rhythm, rate 96, normal axis, stable findings from prior, no dynamic changes, no STEMI. XR personally interpreted demonstrates no acute intrathoracic abnormality. I discussed this case with Dr. Mai and we reviewed ECGs on the patient together. He believes patient has findings of NSTEMI in the setting of significant hyperglycemia and mild acidosis without ketosis. He is not recommending anticoagulation at this time but does recommend 25 mg metoprolol tartrate which has been administered to the patient. He recommends admission for continued management of his multiple ongoing problems and will consider cardiac cath tomorrow. Patient states his symptoms of chest pain have resolved and he is amenable to the plan for admission. I discussed this case with the hospitalist who has accepted the patient for admission. Critical Care Critical Care Time Critical Care Time: No
[2024-01-03] MEDS: BELLADONNA ALKALOIDS 60 ML ML PO (00:21)
[2024-01-03] MEDS: ASPIRIN 81MG CHEWABLE TABLET 324 MG PO (00:21)
[2024-01-03 00:26] LABS: Chloride 94 mmol/L (98-107)
[2024-01-03 00:27] LABS: Albumin Level 4.6 g/dl (3.5-5.0); Potassium 4.4 mmoL/L (3.5-5.1); Sodium 131 mmol/L (136-145)
[2024-01-03 00:29] LABS: Blood Urea Nitrogen 11 mg/dl (9-20); Creatinine Clearance Estimated 242 mL/min (50-200); Estimated Glomerular Filt Rate 123 ml/min (>60); GFR (African American) 148 ML/MIN (>60)
[2024-01-03 00:30] LABS: Alanine Aminotransferase 272 U/L (12-78); Albumin/Globulin Ratio 1.2 (1.1-1.8); Alkaline Phosphatase 80 U/L (38-126); Anion Gap 11.4 mEq/L (5-15); Aspartate Amino Transferase 129 U/L (17-59); Bilirubin,Total 0.9 mg/dl (0.2-1.3); Carbon Dioxide 30 mmol/L (22.0-30.0); Globulin 3.7 g/dL (1.3-3.2); Prothrombin Time 10.2 seconds (10.1-12.5); Total Protein,Serum 8.3 g/dl (6.3-8.2)
[2024-01-03 00:33] LABS: Glucose 604 mg/dl (74-100)
[2024-01-03 00:39] LABS: Lactate Venous 2.9 mmol/L (0.4-2.0); VBG Base Excess 1.1 mmol/L (-2.4-2.3); VBG HCO3 27.8 mmol/L (23-30); VBG Oxygen Saturation 47.9 % (50-70); VBG PCO2 59.5 mmol/L (35-51); VBG PH 7.29 mmol/L (7.31-7.41); VBG PO2 26.9 mmol/L (28-40); VBG Total CO2 29.6 mmol/L (23-27)
[2024-01-03 00:41] LABS: Troponin I 0.08 ng/ml (0.00-0.034)
[2024-01-03 00:45] LABS: Acetone, Serum (Rapid) None Detected (None Detect)
[2024-01-03] MEDS: LACTATED RINGERS 1000ML 1,000 ML 999 ML IV (00:47)
--- NOTE | 2024-01-03 00:57 | ECG_ITS ---
APPROVED REPORT Exam: Resting ECG HR:96 bpm ECG Measurements Heart Rate 96 AXES [place] 164 P 19 QRSd 116 QRS 48 QT 350 T 7 QTc 404 Conclusion SINUS RHYTHM MODERATE INTRAVENTRICULAR CONDUCTION DELAY [110+ ms QRS DURATION] MODERATE ST DEPRESSION [0.05+ mV ST DEPRESSION] ABNORMAL ECG No changes from previous, no STEMI Electronically signed by : SHAVON SIN, 01/03/2024 06:31:41
--- NOTE | 2024-01-03 01:04 | PC.NURSE ---
cardiology paged for Dr. Suarez
--- NOTE | 2024-01-03 01:06 | PC.NURSE ---
Dr. Suarez on phone with Dr. Mai
[2024-01-03] MEDS: METOPROLOL TARTRATE 50MG TABLET 25 MG PO (01:12)
--- NOTE | 2024-01-03 01:12 | EXP.HP ---
History of Present Illness *Admission Date: 01/03/24 *Reason for visit:: CP *History of present illness: 43-year-old male with PMHx of uncontrolled NIDDM, HTN, and BMI 37 presented to ED with 3 hours of chest pain. Patient states shortly after eating dinner tonight, he had tightening of the chest and burning in the throat. He states his pain progressed to feeling like someone hit me in the chest with a baseball bat. He states it comes in waves. Patient had has various past ED visit for same reason. He does not have a personal history of cardiac problems and reportedly a clean heart cath a few years ago (2017). patient also has been working with his PCP to adjust doses of his oral hypoglycemic medications. Patient does take medications for reflux that were recently prescribed to him. Patient states he did have emesis on the way here but it was clear, non-bloody, non-bilious. Patient denies any dizziness, no radiation of the chest pain to the back, arm, or jaw. He is not afebrile, no other associated symptoms at this time. [facility] Medical History (Updated 01/03/24 @ 08:17 by CRUZ Contreras) Depression Migraine Diabetes mellitus, type 2 Hypertension Social History (Updated 01/03/24 @ 01:53 by Sabina Guo RN) Smoking Status: Never smoker alcohol intake: never current occupational status: employed Travel in the last 8 weeks: None Review of Systems Review of Systems Review of systems:: pertinent systems reviewed and negative unless documented below Meds Home Medications and Allergies Home Medications ?Medication ?Instructions ?Recorded ?Confirmed ?Type dapagliflozin propanediol 10 mg 10 mg PO DAILY 01/03/24 01/03/24 History tablet (Farxiga) glimepiride 2 mg tablet 2 mg PO DAILY 01/03/24 01/03/24 History lisinopril 20 1 tab PO DAILY 01/03/24 01/03/24 History mg-hydrochlorothiazide 12.5 mg tablet metformin 1,000 mg tablet 1,000 mg PO DAILYDM 01/03/24 01/03/24 History omeprazole 20 mg capsule,delayed 20 mg PO BID 01/03/24 01/03/24 History release New Prescriptions to Start Prescriptions: Allergies Allergy/AdvReac Type Severity Reaction Status Date / Time coconut Allergy Severe ANAPHYLAXIS Verified 08/12/23 17:12 [From COCONUT (FOOD/DRUG)] Exam Data for Last 24 hours Vital signs and Labs for Last 24 Hours: Temp Pulse Resp BP Pulse Ox O2 Del Method 98.4 F 97 H 16 136/99 H 97 Room Air 01/03/24 00:08 01/03/24 01:00 01/03/24 01:00 01/03/24 01:00 01/03/24 01:00 01/03/24 01:00 Laboratory Results - last 24 hr 01/03/24 00:11: WBC 5.7, RBC 5.32, Hgb 16.3, Hct 50.1, MCV 94.0, MCH 30.6, MCHC 32.6, RDW 13.0, Plt Count 199, MPV 8.6, Neut % (Auto) 60.3, Lymph % (Auto) 29.6, [place] % (Auto) 5.9, Eos % (Auto) 3.0, Baso % (Auto) 1.1, Neut # (Auto) 3.4, Lymph # (Auto) 1.7, [place] # (Auto) 0.3, Eos # (Auto) 0.2, Baso # (Auto) 0.1, PT 10.2, INR 0.90, Sodium 131 L, Potassium 4.4, Chloride 94 L, Carbon Dioxide 30, Anion Gap 11.4, BUN 11, Creatinine 0.70, Estimated Creat Clear 242, Estimated GFR 123, Est GFR ( Amer) 148, Glucose 604 H*, Calcium 9.0, Total Bilirubin 0.9, AST 129 H, ALT 272 H, Alkaline Phosphatase 80, Troponin I 0.08 H, Total Protein 8.3 H, Albumin 4.6, Globulin 3.7 H, Albumin/Globulin Ratio 1.2 01/03/24 00:25: Acetone Level None detected 01/03/24 00:33: VBG pH 7.29 L, VBG pCO2 59.5 H, VBG pO2 26.9 L, VBG HCO3 27.8, VBG Total CO2 29.6 H, VBG O2 Saturation 47.9 L, VBG Base Excess 1.1, VBG Lactic Acid 2.9 H I & O for Last 24 hours: Intake & Output 12/31/23 01/01/24 01/02/24 01/03/24 23:59 23:59 23:59 23:59 Weight 127.006 kg Constitutional Constitutional: mild distress, morbidly obese, obese and cooperative *Routine HEENT Exam Head: Present normocephalic Eye: Present EOMI and PERRL ENT: Present mucous membranes dry *Routine Neck Exam Neck: Present supple and trachea midline; Absent JVD or lymphadenopathy *Routine Respiratory Exam Respiratory: Present CTA bilaterally, normal respiratory effort and symmetric chest movement *Routine Cardiovascular Exam Cardiovascular: Present Normal S1, Normal S2 and tachycardia *Routine Abdominal Exam Abdominal: Present soft, normoactive bowel sounds and obese; Absent tenderness *Routine Rectal Exam Rectal:: deferred *Routine Genitalia Exam Genitalia:: deferred *Routine Extremities Exam Extremities: Present full ROM and pulses intact; Absent cyanosis, clubbing or edema *Routine Skin Exam Skin: Present intact and warm; Absent rash *Routine Neurological Exam Neurological: Present alert, oriented X3, moving all extremities, vision grossly intact, hearing grossly intact and normal speech; Absent sensory deficit or motor deficit Routine Psychiatric Exam Psychiatric: Present normal affect, normal thought process, cooperative, good insight and good judgment H&P: Result Imaging and Cardiology EKG: Status: image reviewed by me, Preliminary report and final report Chest x-ray: Status: image reviewed by me, Preliminary report and final report Assessment and Plan *Assessment and plan (1) Non-ST elevation LA (NSTEMI): Status: Acute Category: Medical Code(s): I21.4 - Non-ST elevation (NSTEMI) myocardial infarction (2) Uncontrolled diabetes mellitus: Status: Acute Qualifiers: Diabetes mellitus type: type 2 Glycemic state: with hyperglycemia Qualified Code(s): E11.65 - Type 2 diabetes mellitus with hyperglycemia Category: Medical (3) HTN (hypertension): Status: Chronic Qualifiers: Hypertension type: primary hypertension Qualified Code(s): I10 - Essential (primary) hypertension Category: Medical Code(s): I10 - Essential (primary) hypertension (4) Obesity (BMI 30-39.9): Status: Chronic Category: Medical Code(s): E66.9 - Obesity, unspecified Plan 43-year-old male with PMHx of uncontrolled NIDDM, HTN, presented to ED with 3 hours of chest pain. ECG personally interpreted demonstrates sinus tachycardia, rate 102, normal axis, normal [place] and QTc, there is Q waves with isolated T wave inversion in lead III, nonspecific, no contiguous changes, no STEMI. Labs demonstrate significant hyperglycemia, nonanion gap metabolic acidosis, elevated lactate at 2.9, patient is receiving IV fluids, acetone negative patient is not in DKA, initial troponin elevated at 0.08 concerning for NSTEMI. cardiology was consulted. patient was aspirin loaded. metoprolol oral given. Discussed with ED for admission. agreed for inpatient further work up and monitoring. Plan: NSTEMI Coronary artery disease Previous heart cath with non-interventional disease 2015 Telemetry monitoring Cardiology consult N.p.o. Troponin trend positive ECG with nonspecific T wave changes and tachycardia Chest x-ray with no acute disease Echocardiogram ordered Trending labs and inflammatory markers Aspirin therapy High-dose statin therapy Beta-alexandra therapy SAMARA inhibitor therapy Nitroglycerin as needed Parenterally administered controlled substance for comfort care Antiemetic therapy Plans for cardiac catheterization this morning Uncontrolled diabetes Nonanion gap acidosis Telemetry monitoring IV fluid resuscitation Routine blood sugar monitoring Hemoglobin A1c 12.5% (November 2023) Basal insulin therapy Sliding scale insulin therapy Trending labs and inflammatory markers Hypertension Routine blood pressure monitoring Beta-alexandra therapy SAMARA inhibitor therapy Holding thiazide diuretic therapy BMI 37 Concerns for OHS/HARLEY Nutrition education Lifestyle/behavioral changes Daily aerobic exercise recommended Calorie appropriate diet Outpatient sleep study evaluation VTE prophylaxis: Lovenox CODE STATUS: Full code POA: The length of stay for this patient will be 2 midnights or greater due to above diagnoses.
[2024-01-03 01:17] LABS: D-Dimer 0.32 ug/mL (0.0-0.5)
[2024-01-03] MEDS: 0.9 % SODIUM CHLORIDE 1000ML 1,000 ML 100 ML IV ×3 (01:17→23:04)
[2024-01-03] MEDS: humaLOG 100 UNITS/ML 10ML VIAL (SSI) 10 UNIT SQ (01:23)
--- NOTE | 2024-01-03 01:30 | PC.NURSE ---
Patient arrived to floor via wheelchair from ED at 01:29.
[2024-01-03 04:40] LABS: Reflex Lactic Add Lactic Reflex
[2024-01-03 04:53] LABS: Basophils # 0.1 K/mm3 (0-0.2); Basophils % 0.7 % (0.1-2.0); Eosinophils # 0.2 K/mm3 (0.0-0.4); Eosinophils % 3.3 % (0.1-12.0); Hematocrit 43.3 % (42.0-52.0); Hemoglobin 14.8 g/dL (14.1-18.0); Lymphocytes # 2.5 K/mm3 (0.7-4.5); Mean Corpuscular HGB Conc 34.3 g/dL (31.8-35.4); Mean Corpuscular Hemoglobin 31.4 pg (27.0-31.2); Mean Corpuscular Volume 91.7 fl (80-94); Mean Platelet Volume 8.7 fl (7.4-10.4); Monocytes # 0.4 K/mm3 (0.1-1.0); Monocytes % 6.1 % (1.7-9.3); Neutrophils # 3.9 K/mm3 (1.8-7.8); Neutrophils % 54.9 % (37.0-80.0); Platelet Count 210 K/mm3 (142-424); Red Blood Count 4.72 M/mm3 (4.60-6.20); Red Cell Distribution Width 13.1 % (11.5-17.5); White Blood Count 7.2 K/mm3 (4.8-10.8)
[2024-01-03 04:58] LABS: Albumin Level 3.7 g/dl (3.5-5.0); Chloride 99 mmol/L (98-107); Sodium 133 mmol/L (136-145)
[2024-01-03 04:59] LABS: Potassium 3.9 mmoL/L (3.5-5.1)
[2024-01-03 05:00] LABS: Lactic Acid Follow Up (RFLX 1) 1.6 mmol/L (0.7-2.1)
[2024-01-03 05:01] LABS: Alanine Aminotransferase 212 U/L (12-78); Albumin/Globulin Ratio 1.2 (1.1-1.8); Alkaline Phosphatase 72 U/L (38-126); Anion Gap 8.9 mEq/L (5-15); Aspartate Amino Transferase 94 U/L (17-59); Bilirubin,Total 0.7 mg/dl (0.2-1.3); Blood Urea Nitrogen 11 mg/dl (9-20); Calcium 8.2 mg/dl (8.4-10.2); Carbon Dioxide 29 mmol/L (22.0-30.0); Creatinine Clearance Estimated 269 mL/min (50-200); Estimated Glomerular Filt Rate 146 ml/min (>60); GFR (African American) 177 ML/MIN (>60); Globulin 3.1 g/dL (1.3-3.2); Glucose 310 mg/dl (74-100); Total Protein,Serum 6.8 g/dl (6.3-8.2)
[2024-01-03 05:02] LABS: Magnesium 1.8 mg/dl (1.6-2.3)
[2024-01-03] MEDS: humaLOG 100 UNITS/ML 10ML VIAL (SSI) SQ ×2 (05:24→16:12)
--- NOTE | 2024-01-03 06:08 | PC.NURSE ---
Pt is A&Ox4. Pt glucose level has decreased to 300 and pt was treated per JUN. Pt troponin levels have also trended upwards provider aware. Pt denies pain and needs at this time.
[2024-01-03 06:46] LABS: Troponin I 0.98 ng/ml (0.00-0.034)
[2024-01-03 06:58] LABS: Chol/HDL Ratio 6.1 (1-3.5); Cholesterol 206 mg/dl (140-200); HDL Cholesterol 34 mg/dl (40-60); Triglycerides 127 mg/dl (30-150); VLDL Cholesterol 25 mg/dL (0-40)
[2024-01-03 07:08] LABS: Direct LDL Cholesterol 131.87 mg/dL (100-129)
--- NOTE | 2024-01-03 07:37 | HMH.PHAINT1 ---
Pharmacy Intervention Comments: home medication list verified using list from outpatient pharmacy
--- NOTE | 2024-01-03 07:59 | EXP.CARD.CON ---
History of Present Illness History of Present Illness Consult date: 01/03/24 Requesting physician: Abdirashid Robison Consult reason: chest pain Chief complaint: NSTEMI Additional Medical History:: 1. CAD A. Non-STEMI, 01/02/2024 B. GXT Myoview, 10/2020, 10.1 METS of activity, no ischemia, EF 58%. C. LHC, 12/08/2015, mild nonflow limiting CAD, normal EF, normal LVEDP. 2. Diabetes mellitus, poorly controlled A. Hemoglobin A1c 12.5, 11/2023 3. Hypertension 4. Hyperlipidemia 5. Family history of early coronary artery disease in both mother and father in their late 50s 6. History of anxiety/depression 7. History of headaches A. Brain MRI, 03/2020, prominent CSF signal intensity in a [place] cisterna magna on the right side versus arachnoid cyst. Small focus of T2 hyperintensity in the subcortical region white matter in the left parietal lobe. B. Head CT, 10/2020, no definite acute intracranial abnormality. Prominent cisterna magna noted. 8. Elevated LFTs A. Liver ultrasound, 04/2023, fatty liver. History of present illness: 43-year-old poorly controlled diabetic presented to the emergency department for 2 months history of exertional chest discomfort that would resolve with rest until yesterday when symptoms came on at rest and felt like a baseball bat hit me in the chest which prompted visit to the emergency department. Initial troponin was only mildly elevated but proceeded to rise to 0.98 this morning. Patient's symptoms have resolved with aspirin and metoprolol given in the ER. Initial EKG in the ER was sinus tach at 102 bpm with no significant ST segment elevations but he does have slight ST segment depression in the V1 and V2 leads. Follow-up EKG was without significant change. This a.m. patient is pain-free. Discussed the need for cardiac catheterization and patient agrees to proceed. [facility] Disclaimer: The information contained in this section may have been updated after the patient was seen, as this information can be updated by other users. Medical History (Updated 01/03/24 @ 08:17 by CRUZ Contreras) Depression Migraine Diabetes mellitus, type 2 Hypertension Social History (Updated 01/03/24 @ 01:53 by Sabina Guo RN) Smoking Status: Never smoker alcohol intake: never current occupational status: employed Travel in the last 8 weeks: None Review of Systems Review of Systems Review of systems:: pertinent systems reviewed and negative unless documented below *Cardiovascular Cardiovascular: Reports chest pain, Reports chest pain at rest and Reports dyspnea on exertion *Respiratory Respiratory: Reports dyspnea on exertion Exam Data for Last 24 hours Vital signs and Labs for Last 24 Hours: Temp Pulse Resp BP Pulse Ox O2 Del Method 97.9 F 72 17 117/74 96 Room Air 01/03/24 07:51 01/03/24 07:51 01/03/24 07:51 01/03/24 07:51 01/03/24 07:51 01/03/24 07:51 Laboratory Results - last 24 hr 01/03/24 00:11: WBC 5.7, RBC 5.32, Hgb 16.3, Hct 50.1, MCV 94.0, MCH 30.6, MCHC 32.6, RDW 13.0, Plt Count 199, MPV 8.6, Neut % (Auto) 60.3, Lymph % (Auto) 29.6, [place] % (Auto) 5.9, Eos % (Auto) 3.0, Baso % (Auto) 1.1, Neut # (Auto) 3.4, Lymph # (Auto) 1.7, [place] # (Auto) 0.3, Eos # (Auto) 0.2, Baso # (Auto) 0.1, PT 10.2, INR 0.90, D-Dimer 0.32, Sodium 131 L, Potassium 4.4, Chloride 94 L, Carbon Dioxide 30, Anion Gap 11.4, BUN 11, Creatinine 0.70, Estimated Creat Clear 242, Estimated GFR 123, Est GFR ( Amer) 148, Glucose 604 H*, Calcium 9.0, Total Bilirubin 0.9, AST 129 H, ALT 272 H, Alkaline Phosphatase 80, Troponin I 0.08 H, Total Protein 8.3 H, Albumin 4.6, Globulin 3.7 H, Albumin/Globulin Ratio 1.2 01/03/24 00:25: Acetone Level None detected 01/03/24 00:33: VBG pH 7.29 L, VBG pCO2 59.5 H, VBG pO2 26.9 L, VBG HCO3 27.8, VBG Total CO2 29.6 H, VBG O2 Saturation 47.9 L, VBG Base Excess 1.1, VBG Lactic Acid 2.9 H 01/03/24 03:10: Troponin I 0.50 H 01/03/24 04:35: WBC 7.2 D, RBC 4.72, Hgb 14.8, Hct 43.3, MCV 91.7, MCH 31.4 H, MCHC 34.3, RDW 13.1, Plt Count 210, MPV 8.7, Neut % (Auto) 54.9, Lymph % (Auto) 35.0, [place] % (Auto) 6.1, Eos % (Auto) 3.3, Baso % (Auto) 0.7, Neut # (Auto) 3.9, Lymph # (Auto) 2.5, [place] # (Auto) 0.4, Eos # (Auto) 0.2, Baso # (Auto) 0.1, Sodium 133 L, Potassium 3.9, Chloride 99, Carbon Dioxide 29, Anion Gap 8.9, BUN 11, Creatinine 0.60 L, Estimated Creat Clear 269, Estimated GFR 146, Est GFR ( Amer) 177, Glucose 310 H D, Lactate 1.6, Calcium 8.2 L, Magnesium 1.8, Total Bilirubin 0.7, AST 94 H D, ALT 212 H, Alkaline Phosphatase 72, Total Protein 6.8, Albumin 3.7 D, Globulin 3.1, Albumin/Globulin Ratio 1.2 01/03/24 06:11: Troponin I 0.98 H, Triglycerides 127, Cholesterol 206 H, LDL Cholesterol Direct 131.87 H, VLDL Cholesterol 25, HDL Cholesterol 34 L, Cholesterol/HDL Ratio 6.1 H I & O for Last 24 hours: Intake & Output 12/31/23 01/01/24 01/02/24 01/03/24 11:59 11:59 11:59 11:59 Output Total 0 / 0 Balance 0 / 0 Weight 266 lb 7.987 oz Constitutional Constitutional: no acute distress *Routine Respiratory Exam Respiratory: Present CTA bilaterally; Absent rhonchi or wheezes *Routine Cardiovascular Exam Cardiovascular: Present RRR; Absent murmur, gallop or rubs *Routine Extremities Exam Extremities: Absent edema *Routine Neurological Exam Neurological: Present alert, oriented X3 and CN II-XII intact Meds Home Medications and Allergies Home Medications ?Medication ?Instructions ?Recorded ?Confirmed ?Type dapagliflozin propanediol 10 mg 10 mg PO DAILY 01/03/24 01/03/24 History tablet (Farxiga) glimepiride 2 mg tablet 2 mg PO DAILY 01/03/24 01/03/24 History lisinopril 20 1 tab PO DAILY 01/03/24 01/03/24 History mg-hydrochlorothiazide 12.5 mg tablet metformin 1,000 mg tablet 1,000 mg PO DAILYDM 01/03/24 01/03/24 History omeprazole 20 mg capsule,delayed 20 mg PO BID 01/03/24 01/03/24 History release New Prescriptions to Start Prescriptions: Allergies Allergy/AdvReac Type Severity Reaction Status Date / Time coconut Allergy Severe ANAPHYLAXIS Verified 08/12/23 17:12 [From COCONUT (FOOD/DRUG)] Assessment and Plan *Assessment and plan (1) Non-ST elevation SC (NSTEMI): Status: Acute Category: Medical Code(s): I21.4 - Non-ST elevation (NSTEMI) myocardial infarction (2) Metabolic acidosis, normal anion gap (NAG): Status: Acute Category: Medical Code(s): E87.20 - Acidosis, unspecified (3) Acidosis, lactic: Status: Acute Category: Medical Code(s): E87.20 - Acidosis, unspecified (4) Chest pain: Status: Acute Qualifiers: Chest pain type: chest pain due to myocardial ischemia Ischemic chest pain type: unstable angina pectoris Qualified Code(s): I20.0 - Unstable angina Category: Medical Code(s): R07.9 - Chest pain, unspecified (5) Uncontrolled diabetes mellitus: Status: Acute Qualifiers: Diabetes mellitus type: type 2 Glycemic state: with hyperglycemia Qualified Code(s): E11.65 - Type 2 diabetes mellitus with hyperglycemia Category: Medical (6) Elevated liver function tests: Status: Acute Category: Medical Code(s): R79.89 - Other specified abnormal findings of blood chemistry (7) HTN (hypertension): Status: Chronic Qualifiers: Hypertension type: primary hypertension Qualified Code(s): I10 - Essential (primary) hypertension Category: Medical Code(s): I10 - Essential (primary) hypertension (8) Hyperlipidemia: Status: Acute Qualifiers: Hyperlipidemia type: mixed hyperlipidemia Qualified Code(s): E78.2 - Mixed hyperlipidemia Category: Medical Code(s): E78.5 - Hyperlipidemia, unspecified Plan 1. Non-STEMI -Patient has been started on aspirin and continued statin therapy -Check echo -Proceed with left heart catheterization today 2. Diabetes mellitus, uncontrolled -Hemoglobin A1c 12.5 last month -Lactic acidosis noted on admission -Add SGLT2 inhibitor 3. Hypertension -On lisinopril/HCTZ -given metoprolol last night 4. Elevated LFTs -Possible liver congestion, continue HCTZ 5. Hyperlipidemia -Continue statin therapy -LDL 131 6. Mild hyponatremia Proceed with left heart catheterization Obtain echocardiogram today Further recommendations to follow. Echo results: Normal biventricular systolic function. No evidence of regional wall motion abnormalities. Marked increase in LV wall thickness. IVSD 1.5 cm. No evidence of EMILIE or LVOT obstruction at rest. No significant valvular stenosis or regurgitation. In the setting of young age and increased LV wall thickness, further evaluation with cardiac MRI (HCM protocol) is suggested on outpatient basis. Electronically signed by : Elizabeth Haywood MD 01/03/2024 11:17:24 Coronary Angiogram results: ANGIOGRAPHIC RESULTS The left main artery Normal The left anterior descending artery Proximally occluded. The vessel filled partially via right to left collaterals. Following revascularization there was wide patency of the ostial proximal and mid segment through 4 contiguous stents. Distal to the stent the distal LAD had additional 80 to 90% stenoses which approaches the apex. The LAD was large and did wrap the apex. The first diagonal artery is jailed with [place]-3 flow with an ostial 80 to 90% stenosis while a small to moderate-sized second diagonal artery is also jailed with an ostial 80% stenosis accompanied by [place]-3 flow The circumflex artery Is a codominant large caliber vessel with proximal and mid vessel 30% stenoses. 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 Effient 10 mg daily plus aspirin 81 mg daily 2. LDL less than 55 to achieve that high intensity statin 3. Recommend insulin and aggressive diabetes control. Patient has persistent severe disease in the distal LAD which cannot be bypassed due to the distal location. Stenting can be performed however this is less desirable. Aggressive risk factor modification with aggressive control of diabetes is necessary 4. I would like to bring patient back to the [facility] in 4 weeks after diabetes is better controlled. The circumflex artery still supplies a moderate amount of myocardium in the obtuse marginal artery as described above. Given this is not the culprit vessel this vessel should not be electively stented until patient has better glycemic control 5. Formal echocardiogram to evaluate ejection fraction and determine if LifeVest may be warranted 6. Avoidance of tobacco products 7. Cardiac rehabilitation Electronically signed by : Sae Mai MD 01/03/2024 11:31:10 Will observe overnight due to extensive stenting and possible need for antiaginal meds. Continue current meds including ASA, effient, Protonix, Lipitor, lisinopril and bisoprolol. If patient is pain-free and stable overnight and then consider discharge tomorrow. As outlined above patient will need to be brought back to the [facility] in 4 to 6 weeks for consideration of the circumflex artery stenting.
[2024-01-03] MEDS: ASPIRIN EC 81MG TABLET 81 MG PO (08:21)
[2024-01-03] MEDS: hydroCHLOROthiazide 12.5MG CAPSULE 12.5 MG PO (08:22)
[2024-01-03] MEDS: ENOXAPARIN 40MG/0.4ML SYRINGE 40 MG SQ (08:22)
[2024-01-03] MEDS: LISINOPRIL 20MG TABLET 20 MG PO (08:22)
--- NOTE | 2024-01-03 08:22 | CA_ITS ---
APPROVED REPORT EXAM: Comprehensive 2D, Doppler, and color-flow Echocardiogram Chisel Grinder: RICARDO Fischer, RVS Ht: 5 ft 10 in Wt: 266lbs BSA: 2.36 BP: 117/74 mmHg Indications: NSTEMI, DM, HTN, CP, Acidosis 2D Dimensions IVSd 1.04 cm LVEF (Visual) 70.70 % PWd 1.17 cm LA Volume 55.50 mL LVDd 5.92 cm LA Volume Index 23.395352 mL/m2 (M/F) 16-34 LVDs 3.51 cm Left Atrium 3.33 cm M-Mode Dimensions LA Diam 4.01 cm (1.9-4.0) EPSs 0.36 cm TAPSE 2.47 (<1.7) LV Diastology E Decel Time 207 (160-240 msec) E/A Ratio 1.27 MED A' 9.20 cm/s LAT A' 8.70 cm/s Aortic Valve SUMMER Index 1.43 cm2/m2 AoV Peak Riley. 118.0 (50-130 cm/s) AO Peak GR. 5.60 mmHg AO Mean GR. 2.80 (<5 mmHg) AO VTI 19.7 (18-25 cm) SUMMER (VTI) 3.45 (2.5-4.5 cm2) Mitral Valve MV A Velocity 46.0 (40-130 cm/s) E/A Ratio 1.27 Tricuspid Valve TR P. Velocity 213.00 cm/s RAP Estimate 10.00 mmHg RVSP 28.20 mmHg Left Ventricle The left ventricle is normal size. The left ventricular systolic function is normal. The left ventricular ejection fraction is within the normal range. There is marked increase in LV wall thickness. IVSD is 1.5 cm. There is no evidence of LVOT obstruction at rest. There is normal LV segmental wall motion. Diastolic function is indeterminate. LVEF is 60%. Right Ventricle The right ventricle is normal size. The right ventricular systolic function is normal. Atria The left atrium size is normal. The right atrium size is normal. There is no Doppler evidence of interatrial shunt. Aortic Valve The aortic valve opens well. There is no aortic valvular stenosis. No aortic regurgitation is present. Mitral Valve The mitral valve is normal in structure. No evidence of systolic anterior motion. No evidence of mitral valve stenosis. There is no mitral valve regurgitation noted. Tricuspid Valve The tricuspid valve leaflets are thin and pliable. Trace tricuspid regurgitation. RVSP is 20-25 mmHg. Pulmonic Valve The pulmonary valve is normal in structure. Trace pulmonic regurgitation. Great Vessels The aortic root is normal in size. The ascending aorta is not well-visualized. IVC is normal in size and collapses >50% with inspiration. Pericardium There is no pericardial effusion. Other Information Study Quality: Fair Conclusion Normal biventricular systolic function. No evidence of regional wall motion abnormalities. Marked increase in LV wall thickness. IVSD 1.5 cm. No evidence of EMILIE or LVOT obstruction at rest. No significant valvular stenosis or regurgitation. In the setting of young age and increased LV wall thickness, further evaluation with cardiac MRI (HCM protocol) is suggested on outpatient basis. Electronically signed by : Elizabeth Haywood MD 01/03/2024 11:17:24
[2024-01-03] MEDS: DAPAGLIFLOZIN PROPANEDIOL 10 MG TABLET PO (09:06)
[2024-01-03] MEDS: HEPARIN 1,000 UNITS/500ML NS (CATH LAB) 3000 UNIT IV (10:43)
[2024-01-03] MEDS: diphenhydrAMINE 50MG/ML VIAL 50 MG IV (10:44)
[2024-01-03] MEDS: LIDOCAINE 1% 10ML MDV 20 ML IJ (10:46)
[2024-01-03] MEDS: HEPARIN 1,000 UNITS/ML 10ML VIAL (CATH LAB) 10000 UNIT IV ×3 (10:46→11:26)
[2024-01-03] MEDS: NITROGLYCERIN 800MCG/8ML SYR (CATH LAB) 800 MCG IA (10:47)
[2024-01-03] MEDS: VERAPAMIL 2.5MG/ML 2ML VIAL 2.5 MG IV (10:47)
[2024-01-03] MEDS: 0.9 % SODIUM CHLORIDE 500 ML 25 ML IV (10:47)
[2024-01-03] MEDS: PRASUGREL 10MG TAB 60 MG PO (11:22)
[2024-01-03] MEDS: MIDAZOLAM HCL 1MG/1ML 5ML VIAL 1 MG IV (11:23)
[2024-01-03] MEDS: FENTANYL 100MCG/2ML VIAL 50 MCG IV (11:23)
[2024-01-03] MEDS: IOPAMIDOL-370 (76%);100ML BOTTLE 130 ML IV (11:48)
[2024-01-03 11:50] LABS: CATHL Activated Clotting Time 214 SEC (74-125)
[2024-01-03 12:19] LABS: POC Glucose,Bedside 152 (70-110)
[2024-01-03 12:35] LABS: 25-OH Vitamin D, Total 32.9 ng/mL (30-100)
[2024-01-03] MEDS: BISOPROLOL 5MG TABLET 5 MG PO (13:13)
[2024-01-03 16:32] LABS: POC Glucose,Bedside 194 (70-110)
--- NOTE | 2024-01-03 16:53 | PC.NURSE ---
A&OX4. TOLERATING RA WELL. UNDERWENT HEART CATH TODAY RECEIVING 4 STENTS. RADIAL BAND TO RIGHT WRIST OFF, PRESSURE DRESSING IN PLACE, CDI. AMBULATING INDEPENDENTLY IN ROOM. PATIENT HAS HAD NO NEEDS OR C/O THUS FAR THIS SHIFT. VSS.
[2024-01-03 20:55] LABS: POC Glucose,Bedside 145 (70-110)
[2024-01-03] MEDS: INSULIN GLARGINE 100 UNITS/ML 3ML FLEXPEN 20 UNIT SQ (20:57)
[2024-01-03] MEDS: PANTOPRAZOLE 40MG TABLET 40 MG PO (20:59)
[2024-01-03] MEDS: ATORVASTATIN 40MG TABLET 80 MG PO (20:59)
[2024-01-03 22:41] LABS: POC Glucose,Bedside 300 (70-110)
[2024-01-04] VITALS: BP 94/55; PULSE 68; PULSE 71; RESP 16; TEMP 36.5; O2SAT 94
[2024-01-04 04:00] VITALS: BP 112/72; PULSE 64; PULSE 67; RESP 16; TEMP 36.5; O2SAT 95; BMI 38.3
--- NOTE | 2024-01-04 04:40 | PC.NURSE ---
Patient has rested well. No c/o pain. Sinus Arrthymia /BBB on tele. Drsg C/D/I to right radial. Vital signs stable/afebrile.
[2024-01-04] MEDS: humaLOG 100 UNITS/ML 10ML VIAL (SSI) SQ (05:32)
[2024-01-04 05:33] LABS: POC Glucose,Bedside 208 (70-110)
[2024-01-04 06:47] LABS: Blood Urea Nitrogen 16 mg/dl (9-20); Calcium 8.1 mg/dl (8.4-10.2); Carbon Dioxide 27 mmol/L (22.0-30.0); Chloride 108 mmol/L (98-107); Creatinine Clearance Estimated 276 mL/min (50-200); Estimated Glomerular Filt Rate 146 ml/min (>60); GFR (African American) 177 ML/MIN (>60); Glucose 185 mg/dl (74-100); Sodium 137 mmol/L (136-145)
[2024-01-04 06:49] LABS: Chol/HDL Ratio 6.6 (1-3.5); Cholesterol 191 mg/dl (140-200); HDL Cholesterol 29 mg/dl (40-60); Triglycerides 244 mg/dl (30-150); VLDL Cholesterol 49 mg/dL (0-40)
[2024-01-04 06:54] LABS: Basophils % 0.3 % (0.1-2.0); Eosinophils # 0.2 K/mm3 (0.0-0.4); Eosinophils % 3.1 % (0.1-12.0); Hematocrit 43.2 % (42.0-52.0); Lymphocytes % 30.2 % (10-50); Mean Corpuscular HGB Conc 32.4 g/dL (31.8-35.4); Mean Corpuscular Hemoglobin 30.3 pg (27.0-31.2); Mean Corpuscular Volume 93.5 fl (80-94); Mean Platelet Volume 8.9 fl (7.4-10.4); Monocytes # 0.3 K/mm3 (0.1-1.0); Monocytes % 5.2 % (1.7-9.3); Neutrophils % 61.2 % (37.0-80.0); Platelet Count 206 K/mm3 (142-424); Red Blood Count 4.62 M/mm3 (4.60-6.20); Red Cell Distribution Width 13.2 % (11.5-17.5); White Blood Count 6.6 K/mm3 (4.8-10.8)
[2024-01-04 06:59] LABS: Direct LDL Cholesterol 107.83 mg/dL (100-129)
[2024-01-04 07:00] LABS: 25-OH Vitamin D, Total 25.1 ng/mL (30-100)
[2024-01-04 08:00] VITALS: BP 128/75; PULSE 80; PULSE 82; RESP 19; TEMP 36.6; O2SAT 98
[2024-01-04 08:15] LABS: Hemoglobin A1C 11.8 % (4.0-6.0)
[2024-01-04] MEDS: ASPIRIN EC 81MG TABLET 81 MG PO (08:27)
[2024-01-04] MEDS: DAPAGLIFLOZIN PROPANEDIOL 10 MG TABLET PO (08:27)
[2024-01-04] MEDS: LISINOPRIL 20MG TABLET 20 MG PO (08:27)
[2024-01-04] MEDS: ENOXAPARIN 40MG/0.4ML SYRINGE 40 MG SQ (08:28)
[2024-01-04] MEDS: BISOPROLOL 5MG TABLET 5 MG PO (08:28)
--- NOTE | 2024-01-04 08:38 | P.PN_ITS ---
Subjective Subjective Date: 01/04/24 Time: 08:38 Principal diagnosis: NSTEMI Interval history: 43-year-old white male in bed in no acute distress. States he feels much better than he did when he came in. Results of left heart catheterization and stenting reviewed with patient and his family. All questions answered. Exam Data for Last 24 hours Vital signs and Labs for Last 24 Hours: Temp Pulse Resp BP Pulse Ox O2 Del Method 97.7 F 80 16 112/72 95 Room Air 01/04/24 04:00 01/04/24 08:00 01/04/24 04:00 01/04/24 04:00 01/04/24 04:00 01/04/24 06:41 Laboratory Results - last 24 hr 01/03/24 05:18: POC Glucose 300 H 01/03/24 06:11: 25-OH Vitamin D Total 32.9 01/03/24 11:22: Activated Clotting Time 214 H* 01/03/24 12:03: POC Glucose 152 H 01/03/24 16:09: POC Glucose 194 H 01/03/24 20:42: POC Glucose 145 H 01/04/24 05:21: POC Glucose 208 H 01/04/24 05:41: WBC 6.6, RBC 4.62, Hgb 14.0 L, Hct 43.2, MCV 93.5, MCH 30.3, MCHC 32.4, RDW 13.2, Plt Count 206, MPV 8.9, Neut % (Auto) 61.2, Lymph % (Auto) 30.2, [place] % (Auto) 5.2, Eos % (Auto) 3.1, Baso % (Auto) 0.3, Neut # (Auto) 4.0, Lymph # (Auto) 2.0, [place] # (Auto) 0.3, Eos # (Auto) 0.2, Baso # (Auto) 0.0, Sodium 137, Potassium 4.0, Chloride 108 H, Carbon Dioxide 27, Anion Gap 6.0, BUN 16 D, Creatinine 0.60 L, Estimated Creat Clear 276, Estimated GFR 146, Est GFR ( Amer) 177, Glucose 185 H, Hemoglobin A1c 11.8 H, Calcium 8.1 L, Triglycerides 244 H, Cholesterol 191, LDL Cholesterol Direct 107.83, VLDL Cholesterol 49 H, HDL Cholesterol 29 L, Cholesterol/HDL Ratio 6.6 H, 25-OH Vitamin D Total 25.1 L I & O for Last 24 hours: Intake & Output 01/01/24 01/02/24 01/03/24 01/04/24 11:59 11:59 11:59 11:59 Intake Total 3236 / 3236 Output Total 0 / 0 0 / 0 Balance 0 / 0 3236 / 3236 Weight 266 lb 7.987 oz 273 lb 14.4 oz Constitutional Constitutional: no acute distress *Routine Respiratory Exam Respiratory: Present CTA bilaterally *Routine Cardiovascular Exam Cardiovascular: Present RRR; Absent murmur, gallop or rubs Progress Note: A&P Assessment and plan (1) Non-ST elevation [place] (NSTEMI): Status: Acute (2) Metabolic acidosis, normal anion gap (NAG): Status: Acute (3) Acidosis, lactic: Status: Acute (4) Chest pain: Status: Acute (5) Uncontrolled diabetes mellitus: Status: Acute (6) Elevated liver function tests: Status: Acute (7) HTN (hypertension): Status: Chronic (8) Hyperlipidemia: Status: Acute Assessment and Plan Assessment and Plan for All Diagnoses:: 1. Non-STEMI -DAPT with ASA and Effient -Echo EF 60%, no significant valve disease, increased LV wall thickness. Consider outpatient cardiac MRI if LV wall thickness does not improve on aggressive GDMT. -LHC, yesterday, CAT X 4 to LAD. Distal LAD disease and Circumflex disease relegated to medical therapy for now but with consideration of repeat LHC in 4-6 wks after better control of diabetes. 2. Diabetes mellitus, uncontrolled -Hemoglobin A1c 12.5 last month -Lactic acidosis noted on admission -Added SGLT2 inhibitor 3. Hypertension -On lisinopril/HCTZ -Beta-alexandra added 4. Elevated LFTs -Possible liver congestion, continue HCTZ 5. Hyperlipidemia -Continue statin therapy -LDL 131 6. Mild hyponatremia, improved Stable from a cardiac standpoint for discharge home. Home medication recommendations: Aspirin 81 mg daily Effient 10 mg daily Lipitor 80 mg daily Bisoprolol 5 mg daily Lisinopril 20 mg daily Farxiga 10 mg daily Follow-up in our office in 1 week.
[2024-01-04] MEDS: PRASUGREL 10MG TAB 10 MG PO (08:40)
--- NOTE | 2024-01-04 09:18 | EXP.DC.SUM ---
General Admission date:: 01/03/24 Discharge date: 01/04/24 HPI HPI HPI: 43-year-old male with PMHx of uncontrolled NIDDM, HTN, and BMI 37 presented to ED with 3 hours of chest pain. Patient states shortly after eating dinner tonight, he had tightening of the chest and burning in the throat. He states his pain progressed to feeling like someone hit me in the chest with a baseball bat. He states it comes in waves. Patient had has various past ED visit for same reason. He does not have a personal history of cardiac problems and reportedly a clean heart cath a few years ago (2017). patient also has been working with his PCP to adjust doses of his oral hypoglycemic medications. Patient does take medications for reflux that were recently prescribed to him. Patient states he did have emesis on the way here but it was clear, non-bloody, non-bilious. Patient denies any dizziness, no radiation of the chest pain to the back, arm, or jaw. He is not afebrile, no other associated symptoms at this time. Hospital Course Hospital Course Hospital Course: The patient was admitted to the telemetry unit with cardiology consultation. Imaging, labs and inflammatory markers were assessed and trended. His hemoglobin A1c was 11.8% identifying uncontrolled diabetes. His HDL was 29 identifying increased risk of coronary artery disease. An echocardiogram identified an ejection fraction of 60% with normal RVSP. He underwent left heart cath with stenting of his LAD and identified distal obtuse marginal disease. Post-cath the patient identified no further chest pain and telemetry identified no arrhythmias. He tolerated his dual antiplatelet therapy, high-dose statin therapy and beta-alexandra therapy. The patient identified improvement and requested to be discharged home. His was at bedside on day of discharge for discharge planning. He understands the importance of improved glycemic control and has been started on SGLT2 therapy for his diabetes and identified heart disease. We have recommended close follow-up with his PCP in 1 week and ongoing cardiology evaluations for his left heart cath findings. I spent 35 minutes in [id number] time with the patient, at bedside and nursing staff concerning the discharge process. We discussed the admitting diagnoses and hospital course. We discussed identified improvement and the patient's desire to be discharged. We reviewed inpatient studies and imaging. The patient voiced understanding on the importance of follow-up with his primary care provider and bed maker. The patient plans to be compliant with the medication regimen prescribed and follow-up appointments. He understands that he can return to the emergency department with any sudden changes or concerns. Exam Data for Last 24 hours Vital signs and Labs for Last 24 Hours: Temp Pulse Resp BP Pulse Ox O2 Del Method 97.7 F 80 16 112/72 95 Room Air 01/04/24 04:00 01/04/24 08:00 01/04/24 04:00 01/04/24 04:00 01/04/24 04:00 01/04/24 06:41 Laboratory Results - last 24 hr 01/03/24 05:18: POC Glucose 300 H 01/03/24 06:11: 25-OH Vitamin D Total 32.9 01/03/24 11:22: Activated Clotting Time 214 H* 01/03/24 12:03: POC Glucose 152 H 01/03/24 16:09: POC Glucose 194 H 01/03/24 20:42: POC Glucose 145 H 01/04/24 05:21: POC Glucose 208 H 01/04/24 05:41: WBC 6.6, RBC 4.62, Hgb 14.0 L, Hct 43.2, MCV 93.5, MCH 30.3, MCHC 32.4, RDW 13.2, Plt Count 206, MPV 8.9, Neut % (Auto) 61.2, Lymph % (Auto) 30.2, [place] % (Auto) 5.2, Eos % (Auto) 3.1, Baso % (Auto) 0.3, Neut # (Auto) 4.0, Lymph # (Auto) 2.0, [place] # (Auto) 0.3, Eos # (Auto) 0.2, Baso # (Auto) 0.0, Sodium 137, Potassium 4.0, Chloride 108 H, Carbon Dioxide 27, Anion Gap 6.0, BUN 16 D, Creatinine 0.60 L, Estimated Creat Clear 276, Estimated GFR 146, Est GFR ( Amer) 177, Glucose 185 H, Hemoglobin A1c 11.8 H, Calcium 8.1 L, Triglycerides 244 H, Cholesterol 191, LDL Cholesterol Direct 107.83, VLDL Cholesterol 49 H, HDL Cholesterol 29 L, Cholesterol/HDL Ratio 6.6 H, 25-OH Vitamin D Total 25.1 L I & O for Last 24 hours: Intake & Output 01/01/24 01/02/24 01/03/24 01/04/24 23:59 23:59 23:59 23:59 Intake Total 1860 / 2220 1376 / 1376 Output Total 0 / 0 Balance 1859 / 0 1376 / 1376 Weight 120.882 kg 124.239 kg Constitutional Constitutional: no acute distress, morbidly obese, chronically ill appearing and cooperative *Routine HEENT Exam Head: Present normocephalic Eye: Present EOMI and PERRL ENT: Present mucous membranes moist *Routine Neck Exam Neck: Absent JVD or lymphadenopathy *Routine Respiratory Exam Respiratory: Present rhonchi, normal respiratory effort and symmetric chest movement *Routine Cardiovascular Exam Cardiovascular: Present RRR; Absent murmur *Routine Abdominal Exam Abdominal: Present soft and normoactive bowel sounds; Absent tenderness *Routine Extremities Exam Extremities: Present full ROM and pulses intact; Absent edema *Routine Skin Exam Skin: Present intact; Absent rash *Routine Neurological Exam Neurological: Present alert, oriented X3, moving all extremities, vision grossly intact, hearing grossly intact and normal speech; Absent sensory deficit or motor deficit Routine Psychiatric Exam Psychiatric: Present normal affect, normal thought process, cooperative and good insight Results Data Completed and Pending Labs on day of discharge: Labs from last 24 hours 01/04/24 01/04/24 01/03/24 05:41 05:21 20:42 WBC 6.6 RBC 4.62 Hgb 14.0 L Hct 43.2 MCV 93.5 MCH 30.3 MCHC 32.4 RDW 13.2 Plt Count 206 MPV 8.9 Neut % (Auto) 61.2 Lymph % (Auto) 30.2 [place] % (Auto) 5.2 Eos % (Auto) 3.1 Baso % (Auto) 0.3 Neut # (Auto) 4.0 Lymph # (Auto) 2.0 [place] # (Auto) 0.3 Eos # (Auto) 0.2 Baso # (Auto) 0.0 Activated Clotting Time Sodium 137 Potassium 4.0 Chloride 108 H Carbon Dioxide 27 Anion Gap 6.0 BUN 16 D Creatinine 0.60 L Estimated Creat Clear 276 Estimated GFR 146 Est GFR ( Amer) 177 Glucose 185 H POC Glucose 208 H 145 H Hemoglobin A1c 11.8 H Calcium 8.1 L Triglycerides 244 H Cholesterol 191 LDL Cholesterol Direct 107.83 VLDL Cholesterol 49 H HDL Cholesterol 29 L Cholesterol/HDL Ratio 6.6 H 25-OH Vitamin D Total 25.1 L 01/03/24 01/03/24 01/03/24 16:09 12:03 11:22 WBC RBC Hgb Hct MCV MCH MCHC RDW Plt Count MPV Neut % (Auto) Lymph % (Auto) [place] % (Auto) Eos % (Auto) Baso % (Auto) Neut # (Auto) Lymph # (Auto) [place] # (Auto) Eos # (Auto) Baso # (Auto) Activated Clotting Time 214 H* Sodium Potassium Chloride Carbon Dioxide Anion Gap BUN Creatinine Estimated Creat Clear Estimated GFR Est GFR ( Amer) Glucose POC Glucose 194 H 152 H Hemoglobin A1c Calcium Triglycerides Cholesterol LDL Cholesterol Direct VLDL Cholesterol HDL Cholesterol Cholesterol/HDL Ratio 25-OH Vitamin D Total 01/03/24 01/03/24 06:11 05:18 WBC RBC Hgb Hct MCV MCH MCHC RDW Plt Count MPV Neut % (Auto) Lymph % (Auto) [place] % (Auto) Eos % (Auto) Baso % (Auto) Neut # (Auto) Lymph # (Auto) [place] # (Auto) Eos # (Auto) Baso # (Auto) Activated Clotting Time Sodium Potassium Chloride Carbon Dioxide Anion Gap BUN Creatinine Estimated Creat Clear Estimated GFR Est GFR ( Amer) Glucose POC Glucose 300 H Hemoglobin A1c Calcium Triglycerides Cholesterol LDL Cholesterol Direct VLDL Cholesterol HDL Cholesterol Cholesterol/HDL Ratio 25-OH Vitamin D Total 32.9 DS: Diagnosis Discharge Diagnosis (1) Non-ST elevation [place] (NSTEMI): Status: Acute Code(s): I21.4 - Non-ST elevation (NSTEMI) myocardial infarction (2) Metabolic acidosis, normal anion gap (NAG): Status: Acute Code(s): E87.20 - Acidosis, unspecified (3) Acidosis, lactic: Status: Acute Code(s): E87.20 - Acidosis, unspecified (4) Chest pain: Status: Acute Code(s): R07.9 - Chest pain, unspecified Qualifiers: Chest pain type: chest pain due to myocardial ischemia Ischemic chest pain type: unstable angina pectoris Qualified Code(s): I20.0 - Unstable angina (5) Uncontrolled diabetes mellitus: Status: Acute Qualifiers: Diabetes mellitus type: type 2 Glycemic state: with hyperglycemia Qualified Code(s): E11.65 - Type 2 diabetes mellitus with hyperglycemia (6) Elevated liver function tests: Status: Acute Code(s): R79.89 - Other specified abnormal findings of blood chemistry (7) HTN (hypertension): Status: Chronic Code(s): I10 - Essential (primary) hypertension Qualifiers: Hypertension type: primary hypertension Qualified Code(s): I10 - Essential (primary) hypertension (8) Hyperlipidemia: Status: Acute Code(s): E78.5 - Hyperlipidemia, unspecified Qualifiers: Hyperlipidemia type: mixed hyperlipidemia Qualified Code(s): E78.2 - Mixed hyperlipidemia Meds Home Medications and Allergies Home Medications ?Medication ?Instructions ?Recorded ?Confirmed ?Type dapagliflozin propanediol 10 mg 10 mg PO DAILY 01/03/24 01/03/24 History tablet (Farxiga) lisinopril 20 1 tab PO DAILY 01/03/24 01/03/24 History mg-hydrochlorothiazide 12.5 mg tablet metformin 1,000 mg tablet 1,000 mg PO DAILYDM 01/03/24 01/03/24 History omeprazole 20 mg capsule,delayed 20 mg PO BID 01/03/24 01/03/24 History release aspirin 81 mg tablet,delayed 81 mg PO DAILY #30 tabs 01/04/24 Rx release atorvastatin 40 mg tablet 80 mg (2 x 40 mg) PO HS #60 tabs 01/04/24 Rx bisoprolol fumarate 5 mg tablet 5 mg PO DAILY #30 tabs 01/04/24 Rx prasugrel 10 mg tablet 10 mg PO DAILY #30 tabs 01/04/24 Rx New Prescriptions to Start Prescriptions: aspirin Emeric,Abdirashid atorvastatin Emeric,Abdirashid bisoprolol fumarate Emeric,Abdirashid prasugrel Emeric,Abdirashid Allergies Allergy/AdvReac Type Severity Reaction Status Date / Time coconut Allergy Severe ANAPHYLAXIS Verified 08/12/23 17:12 [From COCONUT (FOOD/DRUG)] Discharge Plan Disposition Patient Disposition: Home, Self-Care Condition: Fair Follow up Plan Follow up with: Pascual Quintana PA [Physician Shell Freezing Machine Operator] - 01/10/24 10:15 am Zach Ronquillo MD [Staff Physician] - 01/12/24 1:30 pm (Hospital follow up for NSTEMI with LHC and stents, uncontrolled diabetes) Prescriptions/Medication Reconciliation: New aspirin 81 mg Tablet,Delayed Release (Dr/Ec) 81 mg PO DAILY Qty: 30 0RF atorvastatin 40 mg Tablet 80 mg PO HS Qty: 60 0RF bisoprolol fumarate 5 mg Tablet 5 mg PO DAILY Qty: 30 0RF prasugrel 10 mg Tablet 10 mg PO DAILY Qty: 30 0RF Continued lisinopril-hydrochlorothiazide 20-12.5 mg tablet 1 tab PO DAILY Patient Comments: TAKE 1 TABLET BY MOUTH ONCE DAILY metformin 1,000 mg tablet 1,000 mg PO DAILYDM Patient Comments: TAKE 1 TABLET BY MOUTH ONCE DAILY omeprazole 20 mg capsule,delayed release(DR/EC) 20 mg PO BID Patient Comments: TAKE 1 CAPSULE BY MOUTH TWICE DAILY dapagliflozin propanediol [Farxiga] 10 mg tablet 10 mg PO DAILY Patient Comments: TAKE 1 TABLET BY MOUTH ONCE DAILY Discontinued glimepiride 2 mg tablet 2 mg PO DAILY Patient Comments: TAKE 1 TABLET BY MOUTH ONCE DAILY Problem Reconciliation Problems Reviewed?: Yes Patient Discharge Instructions ACTIVITY: Ambulate as tolerated DIET: diabetic diet, low fat, low cholesterol, low salt diet and cardiac Patient Instructions: DI for Heart Attack, DI for Hyperglycemia -- Adult, DI for Surgical Site Infection, DI for Chest Pain Print Language: Angolan Providers Primary Care Provider: Zach Patel Provider: Abdirashid Robison Attending Provider: Abdirashid Robison
--- NOTE | 2024-01-05 15:20 | CARE MANAGER ---
Called and spoke with patient regarding recent discharge. Patient stated that he is doing well, has started all new medication prescribed at discharge and was aware of scheduled f/u appts. No concerns voiced at time of call.
== END 2024-01-04 09:55 | disposition home or self-care (01) ==
LOC: ER 01:13 → 2ND 01:18
PROVIDERS: Internal Medicine; Nurse Practitioner Family; Admitting Provider Family Medicine; Emergency Provider Emergency Medicine; PCP Internal Medicine Adolescent Medicine; Visit Provider Family Medicine
DX: I21.4 Non-ST elevation (NSTEMI) myocardial infarction (principal); I77.1 Stricture of artery; I10 Essential (primary) hypertension; E11.65 Type 2 diabetes mellitus with hyperglycemia; E66.01 Morbid (severe) obesity due to excess calories; Z68.37 Body mass index [BMI] 37.0-37.9, adult; E87.20 Acidosis, unspecified; E78.2 Mixed hyperlipidemia; E87.1 Hypo-osmolality and hyponatremia; Z79.899 Other long term (current) drug therapy; Z79.84 Long term (current) use of oral hypoglycemic drugs; R94.5 Abnormal results of liver function studies
CPT/HCPCS: 36415; 71046; 80048; 80053; 80061; 82009; 82306; 82803; 82962; 83036; 83605; 83735; 84484; 85025; 85347; 85378; 85610; 92928; 92978; 93005; 93306; 93458; 99152; 99153; 99285; C1725; C1760; C1769; C1874; C9600; G0378; J1200; J1644; J1650; J2250; J3010; J7030; J7120; Q9967

== ENCOUNTER 2024-01-10 06:26 | Outpatient (CLI) | payer OTHER, SELFPAY ==
[2024-01-10 06:58] LABS: MANUAL DIFFERENTIAL MANUAL DIFFERENTIAL (MANUAL DIFF)
[2024-01-10 07:16] LABS: Basophils # 0.1 K/mm3 (0-0.2); Basophils % 1.2 % (0.1-2.0); Eosinophils # 0.2 K/mm3 (0.0-0.4); Hematocrit 46.5 % (42.0-52.0); Hemoglobin 15.3 g/dL (14.1-18.0); Lymphocytes # 2.1 K/mm3 (0.7-4.5); Lymphocytes % 28.2 % (10-50); Mean Corpuscular HGB Conc 32.9 g/dL (31.8-35.4); Mean Corpuscular Hemoglobin 30.6 pg (27.0-31.2); Mean Corpuscular Volume 92.9 fl (80-94); Mean Platelet Volume 7.4 fl (7.4-10.4); Monocytes # 0.4 K/mm3 (0.1-1.0); Neutrophils # 4.5 K/mm3 (1.8-7.8); Neutrophils % 61.5 % (37.0-80.0); Platelet Count 256 K/mm3 (142-424); Red Cell Distribution Width 12.6 % (11.5-17.5); White Blood Count 7.3 K/mm3 (4.8-10.8)
[2024-01-10 09:08] LABS: Anion Gap 10.3 mEq/L (5-15); Blood Urea Nitrogen 17 mg/dl (9-20); Calcium 9.1 mg/dl (8.4-10.2); Carbon Dioxide 28 mmol/L (22.0-30.0); Chloride 105 mmol/L (98-107); Estimated Glomerular Filt Rate 123 ml/min (>60); GFR (African American) 148 ML/MIN (>60); Glucose 212 mg/dl (74-100); Potassium 4.3 mmoL/L (3.5-5.1); Sodium 139 mmol/L (136-145)
[2024-01-10 11:09] LABS: Eosinophils % 1 % (0-3); Lymphocytes % 36 % (10-50); Monocytes % 1 % (2-9); Neutrophils % 62 % (42-76); RBC Morphology Normal; Total Cells Counted 100
[2024-01-10 11:10] LABS: Platelet Estimate Normal
== END 2024-01-10 23:59 | disposition home or self-care (01) ==
LOC: LAB 06:28
PROVIDERS: PCP Family Medicine; Visit Provider Physician Assistant
DX: I21.4 Non-ST elevation (NSTEMI) myocardial infarction (principal); I10 Essential (primary) hypertension
CPT/HCPCS: 36415; 80048; 85007; 85014; 85018; 85048; 85049

== ENCOUNTER 2024-01-23 06:21 | Outpatient (CLI) | payer OTHER, SELFPAY ==
--- NOTE | 2024-01-23 06:25 | NM_ITS ---
APPROVED REPORT Exam: Nuclear Stress Test Indication: CAD, HTN, DM, High cholesterol, Family history Patient Location: Outpatient Stress Tech: Kaitlyn Umanzor [place] Tech:Jody Baez, ARRT, RT (R)(N) Ht: 5 ft 10 in Wt: 235 lbs HR: 79 bpm BP: 163/94 mmHg BSA: 2.24 m2 Rhythm: NSR TID: 1.01 BMI: 33.7 History: CAD, HTN, DM, High cholesterol, Family history Procedure: Patient received 0.4 mg of intravenous Lexiscan, resting heart rate 79 bpm, resting blood pressure 163/94 mmHg, with Lexiscan maximum heart rate achieved was 95 bpm which is % of the maximum predicted heart rate and blood pressure was 163/94 mmHg. With Lexiscan, patient denied any complaint of chest pain. Cardiac Stress and Resting SPECT Images: Cardiac Stress and Resting SPECT images were obtained using technetium 99m Myoview 30.4 mCi stress and 10.80 mCi at rest. Resting and stress imaging in supine and prone positions demonstrate no evidence of fixed or reversible perfusion defects. Gated imaging demonstrates normal global and regional LV systolic function. LVEF is calculated at 59%. Conclusion: No evidence of fixed or reversible perfusion defects. Gated imaging demonstrates normal global and regional LV systolic function. LVEF is calculated at 59%. Electronically signed by : Elizabeth Haywood MD 01/23/2024 12:40:47
[2024-01-23] MEDS: ISOTOPE MYOVIEW (PER STUDY) 1 DOSE IV (08:46)
[2024-01-23] MEDS: SODIUM CHLORIDE 0.9% 10ML SYR (RAD ONLY) 10 ML IV ×2 (08:46)
[2024-01-23] MEDS: REGADENOSON 0.4MG/5ML SYRINGE 0.4 MG IV (08:46)
--- NOTE | 2024-01-23 10:16 | CA_ITS ---
APPROVED REPORT Exam: Pharmacologic Technologist: Kaitlyn Umanzor Ht: 5 ft 10 in Wt: 266 lbs BSA: 2.36 m2 HR: 77 bpm BP: 163/94 mmHg Indications: CAD, Chest pain Medical History Medications: Omeprazole,,,,, Aspirin,,,,, Metformin,,,,, Atorvastatin,,,,, Bisprolol,,,,, Prasugrel,,,,, DApagliflozin,,,,, Lisinopril HCTZ,,,,, PropANediol,,,,, Stress Test Details Test: LEXISCAN HR Resting HR: 79 bpm Max Heart Rate (APMHR): 176 bpm Max HR Achieved: 95 bpm Target HR (85% APMHR): 150 bpm % of APMHR: 54 Recovery HR: 86 bpm BP Resting BP: 163.0/94.0 mmHg Max BP: 163.0/94.0 mmHg Recovery BP: 119.0/83.0 mmHg ECG Resting ECG: Sinus rhythm Stress ECG: No significant ST changes Arrhythmia: None Clinical Exercise duration: 04:00 min Highest Stage Achieved: Exercise capacity: 1.0 METs Stress ECG Conclusion Symptoms: Chest pain Arrhythmias/Ectopy: None ST-T Changes: No significant ST changes Conclusion: EKG unremarkable due to Lexiscan infusion. Myoview images reported separately. Test Summary REST 04:15 . . 79 . 163/ 94 . . Stage 1 . . . . . . . Myoview Injected Stage 1 01:00 . . 91 . . . . Stage 2 01:00 . . 93 . 115/ 72 . . Stage 3 01:00 . . 94 . 126/ 83 . . Stage 4 01:00 . . 91 . 123/ 82 . Stop exercise at 04:00 RECOVERY 01:00 . . 88 . 123/ 85 . . RECOVERY 02:00 . . 85 . 119/ 83 . . RECOVERY 03:00 . . 87 . 119/ 83 . . RECOVERY 03:22 . . 86 . 119/ 83 . . Electronically signed by : Elizabeth Haywood MD 01/23/2024 12:38:35
== END 2024-01-23 23:59 | disposition home or self-care (01) ==
LOC: RAD 06:22
PROVIDERS: PCP Family Medicine; Visit Provider Physician Assistant
DX: I21.4 Non-ST elevation (NSTEMI) myocardial infarction (principal); I25.10 Atherosclerotic heart disease of native coronary artery without angina pectoris
CPT/HCPCS: 78452; 93017; 93018; A9502; J2785

== ENCOUNTER 2024-01-29 12:47 | Outpatient (RCR) | payer OTHER, SELFPAY | END 2024-01-29 23:59 | disposition home or self-care (01) | LOC: PT 12:47 | PROVIDERS: Visit Provider Internal Medicine | DX: Z95.5 Presence of coronary angioplasty implant and graft (principal) ==

== ENCOUNTER 2024-04-05 08:58 | Emergency (ER) | payer OTHER, SELFPAY ==
[2024-04-05 10:14] VITALS: BP 158/101; PULSE 70; RESP 18; TEMP 36.9; O2SAT 98; BMI 37.8
[2024-04-05 10:26] LABS: UTC Strep Screen (Rapid) Negative (Negative)
[2024-04-05 10:27] LABS: UTC Influenza A Antigen Negative (Negative); UTC Influenza B Antigen Negative (Negative)
--- NOTE | 2024-04-05 10:47 | EXP.UTC ---
Discharge Plan Disposition Patient Disposition: Home, Self-Care Condition: Good Prescriptions Prescriptions: New amoxicillin 875 mg tablet 875 mg PO Q12H Qty: 20 0RF benzonatate 100 mg capsule 100 mg PO TIDP PRN (Reason: Cough) Qty: 30 0RF ondansetron 4 mg Tablet,Disintegrating 4 mg PO Q8H PRN (Reason: Nausea) Qty: 12 0RF No Action glimepiride 2 mg tablet 2 mg PO DAILY Patient Comments: TAKE 1 TABLET BY MOUTH ONCE DAILY atorvastatin 80 mg tablet 80 mg PO HS Qty: 90 3RF aspirin 81 mg tablet,delayed release (DR/EC) 81 mg PO DAILY Qty: 90 3RF bisoprolol fumarate 5 mg tablet 5 mg PO DAILY Qty: 90 3RF lisinopril-hydrochlorothiazide 20-12.5 mg tablet 1 tab PO DAILY Qty: 90 3RF prasugrel 10 mg tablet 10 mg PO DAILY Qty: 90 3RF metformin 1,000 mg tablet 1,000 mg PO DAILYDM Patient Comments: TAKE 1 TABLET BY MOUTH ONCE DAILY dapagliflozin propanediol [Farxiga] 10 mg tablet 10 mg PO DAILY Patient Comments: TAKE 1 TABLET BY MOUTH ONCE DAILY Referrals Follow up/Referrals: Zach Ronquillo MD [Primary Care Provider] - See instructions Activity Restrictions/Add. Instructions Additional Instructions/Restrictions: Drink plenty of fluids. Take tylenol or ibuprofen for pain or fever. Take the medications as directed. Follow up with your regular doctor. GO TO THE ER FOR ANY WORSENING SYMPTOMS Clinical Impressions Clinical Impression: Acute viral syndrome, Pharyngitis Stand Alone Forms Stand Alone Forms: Work/School Release Instructions Patient Instructions: Sore Throat, DI for Pharyngitis/Tonsillopharyngitis -- Adult, Ondansetron Print Language Print Language: Argentine Discharge ED Provider: Rui Morgan [facility] General Stated complaint: body aches, weakness, lathargic, sore throat Mode of Arrival: Ambulatory Source of Information: Patient Time Seen by Provider: 04/05/24 10:42 Description of Symptoms (Recalled from Triage Doc. by RN): FATIGUE, SORE THROAT, CAN NOT GET WARM HEENT Symptoms (Recalled from RN notes): Yes Resp Symptoms (Recalled from RN notes): No Skin Symptoms (Recalled from RN notes): No MS Symptoms (Recalled from RN notes): No Functional Status (Recalled from RN notes): WNL Related Data Home Medications ?Medication ?Instructions ?Recorded ?Confirmed dapagliflozin propanediol 10 mg 10 mg PO DAILY 01/03/24 04/05/24 tablet (Farxiga) metformin 1,000 mg tablet 1,000 mg PO DAILYDM 01/03/24 04/05/24 glimepiride 2 mg tablet 2 mg PO DAILY 02/14/24 04/05/24 Previous Rx's ?Medication ?Instructions ?Recorded aspirin 81 mg tablet,delayed 81 mg PO DAILY #90 tabs 02/14/24 release atorvastatin 80 mg tablet 80 mg PO HS #90 tabs 02/14/24 bisoprolol fumarate 5 mg tablet 5 mg PO DAILY #90 tabs 02/14/24 lisinopril 20 1 tab PO DAILY #90 tabs 02/14/24 mg-hydrochlorothiazide 12.5 mg tablet prasugrel 10 mg tablet 10 mg PO DAILY #90 tabs 02/14/24 amoxicillin 875 mg tablet 875 mg PO Q12H #20 tabs 04/05/24 benzonatate 100 mg capsule 100 mg PO TIDP PRN Cough #30 caps 04/05/24 ondansetron 4 mg disintegrating 4 mg PO Q8H PRN Nausea #12 tabs 04/05/24 tablet Allergies Allergy/AdvReac Type Severity Reaction Status Date / Time coconut (From COCONUT Allergy Severe ANAPHYLAXIS Verified 02/14/24 09:38 (FOOD/DRUG)) Worker's Comp Is this a Worker's Comp case?: No [facility] Disclaimer: The information contained in this section may have been updated after the patient was seen, as this information can be updated by other users. Medical History Non-ST elevation [place] (NSTEMI) CAD (coronary artery disease) Depression Migraine Diabetes mellitus, type 2 Hypertension Surgical History History of coronary artery stent placement S/P cardiac cath Social History Smoking Status: Never smoker alcohol intake: never current occupational status: employed Travel in the last 8 weeks: None Have you lived/traveled outside US in past 30 days?: No Contact w/someone who lives/traveled outside US past 30 days?: No Exposure to someone with infectious disease in past 14 days?: No Do you have a fever (greater than 100.4 F or 38 C)?: No Have you tested positive for COVID-19: No Exposed to someone with COVID-19 in past 14 days?: No Do you have a sore throat?: Yes Do you have a cough?: No Do you have any weakness?: Yes Do you have any diarrhea?: No Are you experiencing any unusual bleeding?: No Do you have any muscle aches/pain?: Yes Do you have any abdominal pain?: No Are you experiencing loss of taste or smell?: No ROS Obtained: Yes All systems reviewed & no additional complaints except as documented Constitutional Constitutional: Reports chills and Reports fever(s) Eyes Eyes: Denies eye discharge ENT Ears, Nose, Mouth, and Throat: Reports as per HPI Cardiovascular Cardiovascular: Denies chest pain Respiratory Respiratory: Denies chest congestion and Reports cough Gastrointestinal Gastrointestingal: Reports nausea; Denies abdominal pain, constipation, cramping, diarrhea or vomiting Musculoskeletal Musculoskeletal: Denies arthralgias Integumentary/Breasts Skin/Breast: Denies rash Neurologic Neurologic: Denies paresthesias Physical Exam General General appearance: alert and in no apparent distress Head Head exam: atraumatic, normocephalic and normal inspection Eye Eye exam: Present normal appearance, PERRL and EOMI ENT ENT exam: Present mucous membranes moist and normal external ear exam Expanded ENT Exam TM/Canal exam: Bilateral TM: erythema and bulging Nose exam: Absent sinus tenderness Mouth exam: Present normal external inspection; Absent drooling Teeth exam: Present normal inspection Throat exam: Present tonsillar erythema, tonsillomegaly and tonsillar exudate Neck Neck exam: Present normal inspection, full ROM and trachea midline; Absent tenderness, meningismus or lymphadenopathy Chest Chest inspection: Present normal inspection and symmetric chest wall rise; Absent tenderness Respiratory Respiratory exam: Present normal lung sounds bilaterally; Absent respiratory distress, wheezes, stridor or accessory muscle use Cardiovascular Cardiovascular exam: Present regular rate and normal rhythm; Absent systolic murmur or diastolic murmur Abdominal Exam Abdominal exam: Present soft and normal bowel sounds; Absent distention, tenderness, guarding, rebound or rigidity Extremities Exam Extremities exam: Present normal inspection and normal capillary refill; Absent calf tenderness Back Exam Back exam: Present normal inspection and full ROM; Absent tenderness, CVA tenderness (R) or CVA tenderness (L) Neurological Exam Neurological exam: Present alert, oriented X3 and CN II-XII intact Psychiatric Psychiatric exam: Present normal affect and normal mood Skin Skin exam: Present warm, dry, intact and normal color Medical Decision Making Medical Records Medical records reviewed: No I reviewed the patient's medical records. Screening: Per USPSTF and CDC recommendations, given the prevalence of disease in our region, it is our hospital?s policy to screen for HIV and viral Hepatitis for all patients aged 18 and over and those with ongoing risk factors. Kadeem Inquiry Pt receiving controlled substance: No Vital Signs: 04/05/24 10:14 Temperature 98.4 F Temperature Source Oral Pulse Rate [Left Radial] 70 Respiratory Rate 18 Blood Pressure [Left Arm] 158/101 H Blood Pressure Mean [Left Arm] 120 02 Sat by Pulse Oximetry 98 Lab Data Lab results reviewed: Yes I reviewed the patient's lab results. Lab Results 04/05/24 10:14: Influenza Type A Ag Negative, Influenza Type B Ag Negative, Strep Scn Rapid Clinic Negative Orders (Tests/Meds): ORDERS Category Date Time Status Strep Screen Confirmation Stat Micro 04/05/24 10:14 Received
[2024-04-05 11:08] VITALS: BP 158/101; PULSE 70; RESP 18; TEMP 36.9
[2024-04-05 11:11] LABS: Coronavirus 19, PCR Not Detected (NotDetected); Influenza A, PCR Not Detected (NotDetected); Influenza B, PCR Not Detected (NotDetected)
== END 2024-04-05 11:08 | disposition home or self-care (01) ==
PROVIDERS: Emergency Provider Nurse Practitioner Family; PCP Family Medicine
DX: B34.9 Viral infection, unspecified (principal); J02.9 Acute pharyngitis, unspecified; R50.9 Fever, unspecified; R53.1 Weakness; M79.10 Myalgia, unspecified site; R53.83 Other fatigue; R05.9 Cough, unspecified
CPT/HCPCS: 87636; 87804; 87880; 99212; G0381

== ENCOUNTER 2024-05-16 10:29 | Outpatient (CLI) | payer OTHER, SELFPAY ==
[2024-05-16 10:48] LABS: Basophils % 0.5 % (0.1-2.0); Eosinophils # 0.2 K/mm3 (0.0-0.4); Eosinophils % 3.3 % (0.1-12.0); Hematocrit 44.1 % (42.0-52.0); Hemoglobin 15.6 g/dL (14.1-18.0); Mean Corpuscular HGB Conc 35.4 g/dL (31.8-35.4); Mean Corpuscular Hemoglobin 29.8 pg (27.0-31.2); Mean Corpuscular Volume 84.2 fl (80-94); Mean Platelet Volume 9.9 fl (7.4-10.4); Monocytes # 0.4 K/mm3 (0.1-1.0); Monocytes % 7.1 % (1.7-9.3); Neutrophils # 3.2 K/mm3 (1.8-7.8); Neutrophils % 54.9 % (37.0-80.0); Platelet Count 212 K/mm3 (142-424); Red Blood Count 5.24 M/mm3 (4.60-6.20); Red Cell Distribution Width 11.4 % (11.5-17.5); White Blood Count 5.8 K/mm3 (4.8-10.8)
[2024-05-16 11:00] LABS: Alanine Aminotransferase 118 U/L (12-78); Albumin Level 4.4 g/dl (3.5-5.0); Alkaline Phosphatase 85 U/L (38-126); Anion Gap 10.2 mEq/L (5-15); Aspartate Amino Transferase 66 U/L (17-59); Bilirubin,Direct 0.2 mg/dl (0.0-0.4); Bilirubin,Indirect 0.5 mg/dL (0.0-0.9); Bilirubin,Total 0.7 mg/dl (0.2-1.3); Bilirubin,Unconjugated 0.6 mg/dL (0.0-1.1); Blood Urea Nitrogen 13 mg/dl (9-20); Carbon Dioxide 30 mmol/L (22.0-30.0); Chloride 102 mmol/L (98-107); Chol/HDL Ratio 7.1 (1-3.5); Cholesterol 240 mg/dl (140-200); Estimated Glomerular Filt Rate 146 ml/min (>60); GFR (African American) 176 ML/MIN (>60); Glucose 286 mg/dl (74-100); HDL Cholesterol 34 mg/dl (40-60); Magnesium 1.7 mg/dl (1.6-2.3); Potassium 4.2 mmoL/L (3.5-5.1); Sodium 138 mmol/L (136-145); Total Protein,Serum 7.1 g/dl (6.3-8.2); Triglycerides 171 mg/dl (30-150); VLDL Cholesterol 34 mg/dL (0-40)
[2024-05-16 11:14] LABS: Hemoglobin A1C 12.9 % (4.0-6.0)
[2024-05-16 11:15] LABS: Free T4 (Free Thyroxine) 0.81 ng/dl (0.78-2.19)
[2024-05-16 11:30] LABS: Thyroid Stimulating Hormone 1.75 uIU/mL (0.465-4.68)
[2024-05-16 11:58] LABS: Direct LDL Cholesterol 150.73 mg/dL (100-129)
== END 2024-05-16 23:59 | disposition home or self-care (01) ==
LOC: LAB 10:30
PROVIDERS: PCP Family Medicine; Visit Provider Physician Assistant
DX: I25.10 Atherosclerotic heart disease of native coronary artery without angina pectoris (principal); E78.2 Mixed hyperlipidemia; I21.4 Non-ST elevation (NSTEMI) myocardial infarction; E11.65 Type 2 diabetes mellitus with hyperglycemia; E66.9 Obesity, unspecified; Z68.39 Body mass index [BMI] 39.0-39.9, adult
CPT/HCPCS: 36415; 80048; 80061; 80076; 83036; 83735; 84439; 84443; 85025

== ENCOUNTER 2024-05-23 07:40 | Outpatient (CLI) | payer OTHER, SELFPAY ==
--- NOTE | 2024-05-23 07:50 | CA_ITS ---
APPROVED REPORT EXAM: Comprehensive 2D, Doppler, and color-flow Echocardiogram Senior Dentist: Aparna Madsen RT(R) Ht: 5 ft 10 in Wt: 272lbs BSA: 2.38 BP: 163/103 mmHg Indications: LV wall thickness, HTN, DM, SOB, BURK, hyperlipidemia, CAD, LVH 2D Dimensions LVEF (Monte's) 57.50 % M: 52 - 72 LV Volume 138.30 mL M: 62 - 150 LV Volume Index 58.1 mL/m2 M: 34 - 74 LA Volume 24.50 mL LA Volume Index 10.29 mL/m2 (M/F) 16-34 EF AP4 65.50 % EF AP2 48.9 % EF BP 57.5 % GL Strain -14.5 % M-Mode Dimensions RVDd 3.49 cm (0.9-2.6) LA Diam 3.45 cm (1.9-4.0) LVDd 4.92 cm (3.5-5.7) LVDs 3.67 cm (3.5-5.7) IVSd 1.21 cm (0.6-1.1) PWd 1.03 cm (0.6-1.1) EF (Teich) 50.00% FS 25.40% EDV (Teich) 113.90 mL ESV (Teich) 57.00 mL LV Diastology E Decel Time 197 (160-240 msec) E/A Ratio 1.1 Mitral Valve MV E Max Riley. 85.0 (40-130 cm/s) MV A Velocity 77.0 (40-130 cm/s) E/A Ratio 1.11 MV PHT 58.0 ms Left Ventricle The left ventricle is normal size. The left ventricular systolic function is normal. The left ventricular ejection fraction is within the normal range. There is increased LV wall thickness. There is normal LV segmental wall motion. The left ventricular diastolic function is normal. LVEF is 55%. Right Ventricle Right ventricle is mildly dilated. The right ventricular systolic function is normal. Atria The left atrium size is normal. The right atrium size is normal. There is no Doppler evidence of interatrial shunt. Aortic Valve Aortic valve is mildly thickened. There is no aortic valvular stenosis. No aortic regurgitation is present. Mitral Valve The mitral valve is normal in structure. No evidence of mitral valve stenosis. There is no mitral valve regurgitation noted. Tricuspid Valve Tricuspid valve is grossly normal in structure and function. Trace tricuspid regurgitation. There is insufficient TR jet to estimate RVSP. Pulmonic Valve The pulmonary valve is normal in structure. Trace pulmonic regurgitation. Great Vessels The aortic root is normal in size. The ascending aorta is normal in size. IVC is normal in size and collapses >50% with inspiration. Pericardium There is no pericardial effusion. Other Information Study Quality: Fair Conclusion Normal biventricular systolic function. Mild RV dilation. No significant valvular stenosis or regurgitation. Electronically signed by : Elizabeth Haywood MD 05/29/2024 12:14:00
== END 2024-05-23 23:59 | disposition home or self-care (01) ==
LOC: RT 07:41
PROVIDERS: PCP Family Medicine; Visit Provider Physician Assistant
DX: I51.7 Cardiomegaly (principal)
CPT/HCPCS: 93306

== ENCOUNTER 2024-10-14 05:04 | Emergency (ER) | payer OTHER, SELFPAY ==
--- OUTSIDE RECORDS SUMMARY | 2023-12-13 12:30 | XMS_ITS ---
Author Organization [facility] Address [address] [place] [address] Care Team Providers Care Rad Technologist Name Role Phone Zach Patel Primary Care Provider REASON FOR VISIT 2 wk f/u Encounters Encounter Location Date Provider Diagnosis [facility] [address] [place] [address] 12/13/2023 Zach Patel Plan Of Treatment No Information Progress Notes * HIGINIOShayySebastienOB:1980 (44 yo M)Acc No.[id number]:12/13/2023 Progress Notes Patient: Hank LAWSON Provider: Yaakov Patel MD :1980 A ge:43 Y S ex:Male Date:12/13/2023 Address:[address], [id number] Subjective: * Chief Complaints: * 1 . 2 wk f/u. * Medical History: Objective: * Vitals: Assessment: Plan: * Treatment: * * Electronic signature of Lamin Patel MD FAAP on 10/14/2024 at 05:09 AM EDT Sign off status: Pending * Provider: Yaakov Patel MD Date: 12/13/2023 Generated for Printi ng/Fastephaneg/eTransmitting on: 10/14/2024 05:09 AM EDT
--- OUTSIDE RECORDS SUMMARY | 2024-07-27 17:30 | XMS_ITS ---
Author Organization [facility] Address [address] [place] [address] Care Team Providers Care Catering Driver Name Role Phone Zach Patel Primary Care Provider Migration, Provider Unavailable Unavailable Allergies Allergen (clinical drug ingredient) Drug/Non Drug Allergy documented on EMR Reaction Allergy Type Onset Date Status COCONUTS (uncoded) throat swelling Allergy Active REASON FOR VISIT [facility] To [facility] Conversion Encounter Medications Medication SIG (Take, Route, Frequency, Duration) Notes Start Date End Date Status Glimepiride 2 MG 1 tab(s) orally once a day for 90 days 11/29/2023 Active Lisinopril-hydroCHLOR Othiazide 20-12.5 MG 1 tab(s) orally once a day for 30 days Active Omeprazole 20 MG 1 cap(s) orally twice daily for 90 days Active Farxiga 10 MG 1 tab(s) orally once a day for 90 days 11/29/2023 Active metFORMIN HCl 1000 MG 1 tab(s) orally daily for 90 days 11/29/2023 Active amLODIPine Besylate 5 MG 1 tab(s) orally once a day for 30 days 12/01/2021 Active Citalopram Hydrobromide 10 MG 1 tab(s) orally once a day for 30 days 04/06/2023 Active GLUCOMETER *Please review f or potential replacement for e-prescription and drug interaction check* 07/06/2022 Active LANCET DAILY for 30 DAYS *Please review for potential replacement for e-prescription and drug interaction check* 07/06/2022 Active GLUCOMETER TEST STRIPS *Please review for potential replacement for e-prescription and drug interaction check* 07/09/2022 Active Encounters Encounter Location Date Provider Diagnosis [facility] P[facility] JE[facility] [address] [place] [address] 07/27/2024 Provider Migration Uncontrolled type 2 diabetes mellitus with hyperglycemia E11.65 and Chronic GERD K21.9 Assessments Encounter Date Diagnosis (ICD Code) Assessment Notes Treatment Notes Treatment Clinical Notes Section Notes 07/27/2024 Uncontrolled type 2 diabetes mellitus with hyperglycemia (ICD-10 - E11.65) 07/27/2024 Chronic GERD (ICD-10 - K21.9) Plan Of Treatment Medication Medication Name Sig Start Date Stop Date Notes Glimepiride 2 MG 1 tab(s) orally once a day for 90 days 11/29/2023 Omeprazole 20 MG 1 cap(s) orally twic e daily for 90 days Farxiga 10 MG 1 tab(s) orally once a day for 90 days 11/29/2023 metFORMIN HCl 1000 MG 1 tab(s) orally daily for 90 days Progress Notes * Shayy SYLVESTERhDOB:1980 (44 yo M)Acc No.[id number]:07/27/2024 Patient: Hank LAWSON Provider: Vinicius Simons :1980 A ge:44 Y S ex:Male Date:07/27/2024 Address:[address] [place] [address], [id number] Pcp:Zach Patel Subjective: * Chief Complaints: * [facility] * Medical History: * Medications: T aking GLUCOMETER , Notes to Pharmacist: *Please review for potential replacement for e-prescription and drug interaction check*, Taking LANCET DAILY , Notes to Pharmacist: *Please review for potential replacement for e-prescription and drug interaction check*, Taking GLUCOMETER TEST STRIPS , Notes to Pharmacist: *Please review for potential replacement for e-prescription and drug interaction check*, Taking amLODIPine Besylate 5 MG Tablet 1 tab(s) orally once a day , Taking Citalopram Hydrobromide 10 MG Tablet 1 tab(s) orally once a day , Taking Lisinopril-hydroCHLOROthiazide 20-12.5 MG Tablet 1 tab(s) orally once a day * Allergies: C OCONUTS: throat swelling. Objective: * Vitals: Assessment: * Assessment: 1. U ncontrolled type 2 diabetes mellitus with hyperglycemia - E11.65 (Primary) ?2. C hronic GERD - K21.9 Plan: * Treatment: 2. C hronic GERD Refill Omeprazole Capsule Delayed Release, 20 MG, 1 cap(s), orally, twice daily, 90 days, 180, Refills 3. * * Electronic signature of Prov ider Migration on 10/14/2024 at 05:08 AM EDT Sign off status: Pending * Provider: Vinicius sorensen Migration Date: 0 07/27/2024 Generated for Edd cain/Ralph/Paty on: 0 10/14/2024 05:08 AM EDT
[2024-10-14] VITALS (9 sets, daily range): BP systolic 112–172; BP diastolic 50–101; PULSE 78–96; RESP 12–16; TEMP 36.6–36.9; O2SAT 92–97; BMI 38.0
--- NOTE | 2024-10-14 05:02 | ECG_ITS ---
APPROVED REPORT Exam: Resting ECG HR:80 bpm ECG Measurements Heart Rate 80 AXES DC 182 P 45 QRSd 112 QRS 48 QT 374 T -1 QTc 410 Conclusion SINUS RHYTHM INFERIOR MYOCARDIAL INFARCTION , PROBABLY OLD [40+ ms Q WAVE AND/OR ST/T ABNORMALITY IN II/aVF] ABNORMAL ECG UNCONFIRMED REPORT Electronically signed by : LATOSHA FONTANEZ, 10/15/2024 06:34:50
--- NOTE | 2024-10-14 05:07 | CT_ITS ---
PROCEDURE INFORMATION: Exam: CT Head Without Contrast Exam date and time: 10/14/2024 5:29 AM Age: 44 years old Clinical indication: Pain; Dizziness; Headache; Additional info: New onset headache TECHNIQUE: Imaging protocol: Computed tomography of the head without contrast. Radiation optimization: All CT scans at this facility use at least one of these dose optimization techniques: automated exposure control; mA and/or kV adjustment per patient size (includes targeted exams where dose is matched to clinical indication); or iterative reconstruction. COMPARISON: CT HEAD/BRAIN WO CON 10/24/2020 9:46 PM FINDINGS: Brain: Normal. No hemorrhage. Unremarkable white matter. No mass effect. Cerebral ventricles: The ventricles are normal in size. There is stable prominence of the cisterna magna. Paranasal sinuses: Visualized sinuses are unremarkable. No fluid levels. Mastoid air cells: Visualized mastoid air cells are well aerated. Bones: No acute fracture. Soft tissues: Unremarkable. IMPRESSION: No acute intracranial abnormality.
--- NOTE | 2024-10-14 05:07 | CT_ITS ---
PROCEDURE INFORMATION: Exam: CTA Head With Contrast, Arteriography Exam date and time: 10/14/2024 5:33 AM Age: 44 years old Clinical indication: Pain; Headache; Additional info: New onset dizziness TECHNIQUE: Imaging protocol: Computed tomographic angiography of the head with contrast. Exam focused on the arteries. 3D rendering (Not supervised by radiologist): MIP and/or 3D reconstructed images were created by the technologist. Radiation optimization: All CT scans at this facility use at least one of these dose optimization techniques: automated exposure control; mA and/or kV adjustment per patient size (includes targeted exams where dose is matched to clinical indication); or iterative reconstruction. Contrast material: ISOVUE; Contrast volume: 80 ml; Contrast route: INTRAVENOUS (IV); COMPARISON: CT HEAD/BRAIN WO CON 10/14/2024 5:29 AM FINDINGS: ANTERIOR CIRCULATION: Right internal carotid artery: Intracranial segment is patent with no significant stenosis. No aneurysm. Right middle cerebral artery: No occlusion or significant stenosis. No aneurysm. Right anterior cerebral artery: No occlusion or significant stenosis. No aneurysm. Left internal carotid artery: Intracranial segment is patent with no significant stenosis. No aneurysm. Left middle cerebral artery: No occlusion or significant stenosis. No aneurysm. Left anterior cerebral artery: No occlusion or significant stenosis. No aneurysm. POSTERIOR CIRCULATION: Right vertebral artery: The intradural segment of the right vertebral artery is diminutive. Left vertebral artery: No occlusion or significant stenosis. No aneurysm. Basilar artery: No occlusion or significant stenosis. No aneurysm. Right posterior cerebral artery: No occlusion or significant stenosis. No aneurysm. Left posterior cerebral artery: No occlusion or significant stenosis. No aneurysm. Brain: No abnormal enhancement. Cerebral ventricles: No ventriculomegaly. Bones/joints: No acute fracture. Soft tissues: Unremarkable. IMPRESSION: No large vessel stenosis or acute intracranial large vessel arterial occlusion. PROCEDURE INFORMATION: Exam: CTA Neck With Contrast Exam date and time: 10/14/2024 5:33 AM Clinical indication: Pain; Headache; Additional info: New onset dizziness TECHNIQUE: Imaging protocol: Computed tomographic angiography of the neck with contrast. Exam focused on the cervical segments of the vasculature. 3D rendering (Not supervised by radiologist): MIP and/or 3D reconstructed images were created by the technologist. COMPARISON: No relevant prior studies available. FINDINGS: Right common carotid artery: No stenosis. No dissection or occlusion. Right internal carotid artery: No stenosis of the extracranial segment. No dissection or occlusion. Right external carotid artery: No occlusion or stenosis of the origin. Left common carotid artery: No stenosis. No dissection or occlusion. Left internal carotid artery: No stenosis of the extracranial segment. No dissection or occlusion. Left external carotid artery: No occlusion or stenosis of the origin. Right vertebral artery: No stenosis. No dissection or occlusion. Left vertebral artery: Reflux of venous contrast slightly limits evaluation of the left V1 segment. The V2 and V3 segments are patent throughout. Lung apices: There is a 6 mm right apical granuloma. Teeth: The maxilla is edentulous. The mandible is partially edentulous. Soft tissues: Normal. No significant soft tissue swelling. Bones/joints: No acute fracture. IMPRESSION: No stenosis or acute cervical arterial occlusion. REFERENCES: NASCET CRITERIA. The degree of stenosis in the cervical segment of the internal carotid artery is based on NASCET criteria. Normal is no stenosis. Mild is less than 50% stenosis. Moderate is 50-69% stenosis. Severe is 70% to 99% stenosis. Total occlusion is no detectable patent lumen.
--- NOTE | 2024-10-14 05:07 | CT_ITS ---
PROCEDURE INFORMATION: Exam: CTA Chest With Contrast Exam date and time: 10/14/2024 5:40 AM Age: 44 years old Clinical indication: Shortness of breath; Additional info: [place]NE Loredo TECHNIQUE: Imaging protocol: Computed tomographic angiography of the chest with contrast. Exam focused on the arteries. 3D rendering (Not supervised by radiologist): MIP and/or 3D reconstructed images were created by the technologist. Radiation optimization: All CT scans at this facility use at least one of these dose optimization techniques: automated exposure control; mA and/or kV adjustment per patient size (includes targeted exams where dose is matched to clinical indication); or iterative reconstruction. Contrast material: ISOVUE; Contrast volume: 75 ml; Contrast route: INTRAVENOUS (IV); COMPARISON: CT ANGIO CHEST PE PROTOCOL 10/24/2020 9:[address] CHEST W CON 03/17/2022 10:10 AM FINDINGS: Pulmonary arteries: Normal. No pulmonary emboli. Aorta: The thoracic aorta is normal in appearance. No evidence of an aneurysm or dissection. Lungs: There is an old calcified granuloma of the right lung apex. There is a stable 2 mm noncalcified nodule in the periphery of the left lower lobe (series 5, image 72). Given the interval stability of this nodule, imaging follow-up does not appear indicated as per Fleischner society recommendations. For patients at low risk (minimal or absent history of smoking and of other known risk factors), no routine follow-up is indicated. For patients at high risk (history of smoking or of other known risk factors), consider optional CT Chest at 12 months. (Reference: Sloane) Pleural spaces: Unremarkable. No pneumothorax. No pleural effusion. Heart: Borderline cardiomegaly. No pericardial effusion. There are coronary artery stents in the LAD. Lymph nodes: Unremarkable. No enlarged lymph nodes. Liver: Hepatic steatosis. The liver is incompletely imaged but appears enlarged measuring at least 22 cm in craniocaudal dimension. Spleen: Splenomegaly. The spleen measures about 17 cm in craniocaudal dimension. Bones/joints: Unremarkable. No acute fracture. Soft tissues: Unremarkable. IMPRESSION: 1. No visible pulmonary emboli and the thoracic aorta is normal. 2. Borderline cardiomegaly. There are multiple coronary artery stents present in the LAD. 3. Hepatic steatosis and hepatosplenomegaly. References: Sloane Pozo, et al. Guidelines for Management of Incidental Pulmonary Nodules Detected on CT Images: From the Fleischner Society 2017. Radiology. 2017;284(1):228-243.
--- OUTSIDE RECORDS SUMMARY | 2024-10-14 05:09 | XMS_ITS | Patient Health Record ---
Author Organization [facility] Address [address] [place] [address] Care Team Providers Care Retail Advertising Executive Name Role Phone AmandaZach Primary Care Provider Migration, Provider Unavailable Unavailable Allergies Allergen (clinical drug ingredient) Drug/Non Drug Allergy documented on EMR Reaction Allergy Type Onset Date Status COCONUTS (uncoded) throat swelling Allergy Active Reason For Referral No Information Medications Medication SIG (Take, Route, Frequency, Duration) Notes Start Date End Date Status amLODIPine Besylate 5 MG 1 tab(s) orally once a day for 30 days 12/01/2021 Active Glimepiride 2 MG 1 tab(s) orally once a day for 90 days 11/29/2023 Active Citalopram Hydrobromide 10 MG 1 tab(s) orally once a day for 30 days 04/06/2023 Active Lisinopril-hydroCHLOR Othiazide 20-12.5 MG 1 tab(s) orally once a day for 30 days Active Omeprazole 20 MG 1 cap(s) orally twice daily for 90 days Active GLUCOMETER *Please review f or potential replacement for e-prescription and drug interaction check* 07/06/2022 Active Farxiga 10 MG 1 tab(s) orally once a day for 90 days 11/29/2023 Active metFORMIN HCl 1000 MG 1 tab(s) orally daily for 90 days 11/29/2023 Active LANCET DAILY for 30 DAYS *Please review for potential replacement for e-prescription and drug interaction check* 07/06/2022 Active GLUCOMETER TEST STRIPS *Please review for potential replacement for e-prescription and drug interaction check* 07/09/2022 Active Social History Tobacco Use: Social History Observation Description Date Details (start date - stop date) Never Smoker NA - NA Smoking: Question Answer Notes Are you a: nonsmoker Problems Problem Type SNOMED Code ICD Code Onset Dates Problem Status W/U Status Risk Notes Problem 79023450 Type 2 diabetes mellitus with other specified complication (E11.69) Active confirmed Problem 279109828 Obesity, unspecified (E66.9) Active confirmed Problem 91750068 Essential hypertension (I10) Active confirmed Problem 613465294 BMI 39.0-39.9,adult (Z68.39) Active confirmed Problem Elevated liver enzymes level (639718905) Elevated liver enzymes (R74.8) Active confirmed Problem 58148175 HARLEY (obstructive sleep apnea) (G47.33) Active confirmed Problem 73183653 LILLIE (generalized anxiety disorder) (F41.1) Active confirmed Problem 788231685 Chronic GERD (K21.9) Active confirmed Problem Controlled type 2 diabetes mellitus without complication, without long-term current use of insulin (E11.9) Active confirmed Problem 851743890 Abnormal CT scan , head (R93.0) Active confirmed Problem 178885441 Uncontrolled typ e 2 diabetes mellitus with hyperglycemia (E11.65) Active confirmed Vital Signs Heart Rate 84 /min 11/29/2023 Temperature 98.2 degrees Fahrenheit 11/29/2023 Blood pressure diastolic 86 mm Hg 11/29/2023 Height 6 ft 0 in in 11/29/2023 Blood pressure systolic 126 mm Hg 11/29/2023 Weight 264.4 lbs 11/29/2023 BMI 35.86 kg/m2 11/29/2023 Encounters Encounter Location Date Provider Diagnosis [facility] [address] [facility] [address] [place], [place] [address] 07/27/2024 Provider Migration Uncontrolled type 2 diabetes mellitus with hyperglycemia E11.65 and Chronic GERD K21.9 [facility] [address] [facility] [address] [place], [place] [address] 11/29/2023 Zach Esteveshannah Uncontrolled type 2 diabetes mellitus with hyperglycemia E11.65 ; Essential hypertension I10 ; Chronic GERD K21.9 and Other chest pain R07.89 [facility] [address] [facility] [address] [place] [address] 11/13/2023 Zach Patel Essential hypertension I10 Assessments Encounter Date Diagnosis (ICD Code) Assessment Notes Treatment Notes Treatment Clinical Notes Section Notes 11/13/2023 Essential hypertension (ICD-10 - I10) 11/29/2023 Essential hypertension (ICD-10 - I10) -Chronic, controlled -Continue medications, no changes 11/29/2023 Uncontrolled type 2 diabetes mellitus with hyperglycemia (ICD-10 - E11.65) -Chronic, uncontrolled, A1c 12.5 -Chest pain episode may have been exacerbated by uncontrolled hyperglycemia. -Will increase metformin to 1000 mg once a day and add Farxiga 10 mg (Samples provided today for 2 weeks) and add glimeperide 2 mg daily. -Advised patient to keep blood glucose log and bring to follow up appointment in 2 weeks 07/27/2024 Uncontrolled type 2 diabetes mellitus with hyperglycemia (ICD-10 - E11.65) 07/27/2024 Chronic GERD (ICD-10 - K21.9) 11/29/2023 Chronic GERD (ICD-10 - K21.9) -Cardiac etiology for chest pain ruled out, obtained EKG in office for baseline -Most likely related to GERD symptoms given burning in throat with chest pain. -Will increase omeprazole to 20 mg twice a day 11/29/2023 Other chest pain (ICD-10 - R07.89) Troponins negative in ER, symptoms improving, increase omeprazole as noted. EKG here also normal. Plan Of Treatment Pending Test Test Name Order Date Ultrasound : Right Upper Quadrant 2022 M-Complete Blood Count Auto Diff 023 M-Complete Blood Count Auto Diff 023 M-Urinalysis and Microscopic 03/04/2023 M-Comprehensive Metabolic Panel 03/04/20 23 M-Comprehensive Metabolic Panel 07/07/19 23 M-Hemoglobin A1C 07/06/2022 M-Hemoglobin A1C 03/04/2023 M-Lipid Panel 03/04/2023 M-Lipid Panel 07/06/2022 M-Prostate Specific Ag Screen 03/04/2023 M-Microalb/Creat Ratio, [facility] Ur 023 M-Microalb/Creat Ratio, [facility] Ur 023 Insurance Providers Payer Name Payer Address Payer Phone Subscriber Number Group Number Insured Name Patient Relationship to Insured Coverage Start Date Coverage End Date [facility] [address] [place] ALLI [id number] Hank Bridges Self - patient is the insured Medical (General) History Medical History History ICD Code Diabetes HTN Obesity Chest pain admit with negative myoview s tress test 10/2020 HARLEY, mild, waiting on CPAP Surgical History Surgery Date(Month/Year) Heart Cath 2016 Hospitalization History Reason Date(Month/Year) chest pain 10/2020
--- NOTE | 2024-10-14 05:10 | HMH.EDGENADL ---
Discharge Plan Disposition Patient Disposition: Home, Self-Care Prescriptions Prescriptions: No Action glimepiride 2 mg tablet 2 mg PO DAILY Patient Comments: TAKE 1 TABLET BY MOUTH ONCE DAILY atorvastatin 80 mg tablet 80 mg PO HS Qty: 90 3RF aspirin 81 mg tablet,delayed release (DR/EC) 81 mg PO DAILY Qty: 90 3RF prasugrel HCl 10 mg tablet 10 mg PO DAILY Qty: 90 3RF omeprazole 20 mg capsule,delayed release(DR/EC) 20 mg PO BID Patient Comments: TAKE 1 CAPSULE BY MOUTH TWICE DAILY lisinopril-hydrochlorothiazide 20-12.5 mg tablet 2 tab PO .every morning Qty: 180 3RF bisoprolol fumarate 10 mg tablet 10 mg PO .bedtime Qty: 90 3RF Repatha Syringe 140 mg/mL syringe 140 mg SQ Q2W Qty: 3 5RF Ozempic 0.25 mg or 0.5 mg (2 mg/3 mL) pen injector 0.25 mg SQ WEEKLY Qty: 3 0RF Rx Instructions: for 4 weeks metformin 1,000 mg tablet 1,000 mg PO BID Qty: 60 2RF (DME) Dexcom G7 Floor Care Technician Misc See Rx Instructions .Route Qty: 1 0RF Rx Instructions: As directed (DME) Dexcom G7 Sensor Device See Rx Instructions .Route Qty: 1 5RF Rx Instructions: As directed dapagliflozin propanediol [Farxiga] 10 mg tablet 10 mg PO DAILY Patient Comments: TAKE 1 TABLET BY MOUTH ONCE DAILY ondansetron 4 mg Tablet,Disintegrating 4 mg PO Q8H PRN (Reason: Nausea) Qty: 12 0RF Referrals Follow up/Referrals: Provider,Referral, [Primary Care Provider, Medical] - See instructions Activity Restrictions/Add. Instructions Additional Instructions/Restrictions: Please follow-up with your primary care doctor and long term care social worker. If you have worsening pain or your symptoms return please come back to the emergency department for further management. Clinical Impressions Clinical Impression: Chest pain Print Language Print Language: Tuvaluan Discharge ED Provider: Eugene Carter Adult HPI <Jose Leach MD - Last Filed: 10/14/24 06:48> General Chief complaint: Chest Pain Stated complaint: chest pain Time Seen by Provider: 10/14/24 05:10 History of Present Illness HPI narrative: 44-year-old male with history of poorly controlled hypertension, coronary artery disease, LVH presents for multiple complaints. He reports he woke this morning with a headache, frontal in nature, 7 out of 10. His blood pressure was in the 160s at home which is normal for him. He reports that he felt dizzy and kind of felt like the room was spinning when he woke up. Went to bed at 10:00 last night 7 and half hours prior to arrival. Patient reports that he still feels dizzy. On the way to the ER he started having chest pain. He reports that he just traveled by car back from [place] yesterday. Denies any specific leg pain or swelling. Related Data Home Medications ?Medication ?Instructions ?Recorded ?Confirmed dapagliflozin propanediol 10 mg 10 mg PO DAILY 01/03/24 06/24/24 tablet (Farxiga) glimepiride 2 mg tablet 2 mg PO DAILY 02/14/24 06/24/24 omeprazole 20 mg capsule,delayed 20 mg PO BID 05/16/24 06/24/24 release Previous Rx's ?Medication ?Instructions ?Recorded aspirin 81 mg tablet,delayed 81 mg PO DAILY #90 tabs 02/14/24 release atorvastatin 80 mg tablet 80 mg PO HS #90 tabs 02/14/24 prasugrel HCl 10 mg tablet 10 mg PO DAILY #90 tabs 02/14/24 ondansetron 4 mg disintegrating 4 mg PO Q8H PRN Nausea #12 tabs 04/05/24 tablet bisoprolol fumarate 10 mg tablet 10 mg PO .bedtime #90 tabs 05/16/24 lisinopril 20 2 tab PO .every morning #180 tabs 05/16/24 mg-hydrochlorothiazide 12.5 mg tablet blood-glucose,cheese factory worker,cont #1 ea 05/28/24 (Dexcom G7 Floor Care Technician) metformin 1,000 mg tablet 1,000 mg PO BID #60 tabs 05/28/24 semaglutide 0.25 mg or 0.5 mg (2 0.25 mg (0.368 mL) SQ WEEKLY #3 mL 05/28/24 mg/3 mL) subcutaneous pen injector ([employer]) evolocumab 140 mg/mL subcutaneous 140 mg SQ Q2W #3 mL 06/24/24 syringe (Repatha Syringe) blood-glucose sensor (Dexcom G7 #1 ea 09/05/24 Sensor device) Allergies Allergy/AdvReac Type Severity Reaction Status Date / Time coconut (From COCONUT Allergy Severe ANAPHYLAXIS Verified 06/24/24 08:29 (FOOD/DRUG)) [facility] <Jose Leach MD - Last Filed: 10/14/24 06:48> [facility] Disclaimer: The information contained in this section may have been updated after the patient was seen, as this information can be updated by other users. Medical History LVH (left ventricular hypertrophy) Non-ST elevation [place] (NSTEMI) CAD (coronary artery disease) Depression Migraine Diabetes mellitus, type 2 Hypertension Surgical History History of coronary artery stent placement S/P cardiac cath Social History Smoking Status: Never smoker alcohol intake: never current occupational status: employed Travel in the last 8 weeks?: None Have you lived/traveled outside US in past 30 days?: No Contact w/someone who lives/traveled outside US past 30 days?: No Exposure to someone with infectious disease in past 14 days?: No Do you have a fever (greater than 100.4 F or 38 C)?: No Have you tested positive for COVID-19?: No Exposed to someone with COVID-19 in past 14 days?: No Do you have a sore throat?: No Do you have a cough?: No Do you have any weakness?: No Do you have any diarrhea?: No Are you experiencing any unusual bleeding?: No Do you have any muscle aches/pain?: No Do you have any abdominal pain?: No Are you experiencing loss of taste or smell?: No Other Medical History Have you received the Flu Vaccine for this season: No Have you received the Pneumonia Vaccine: No <Jose Leach MD - Last Filed: 10/14/24 06:48> ROS Obtained: Yes All systems reviewed & no additional complaints except as documented Physical Exam <Jose Leach MD - Last Filed: 10/14/24 06:48> General General appearance: alert and in no apparent distress Head Head exam: atraumatic and normocephalic Eye Eye exam: Present normal appearance, PERRL and EOMI ENT ENT exam: Present normal oropharynx and normal external ear exam Neck Neck exam: Present normal inspection and full ROM Chest Chest inspection: Present normal inspection and symmetric chest wall rise; Absent tenderness Respiratory Respiratory exam: Present normal lung sounds bilaterally; Absent respiratory distress Cardiovascular Cardiovascular exam: Present regular rate and normal rhythm Abdominal Exam Abdominal exam: Present soft; Absent distention, tenderness or guarding Extremities Exam Extremities exam: Present normal inspection; Absent edema or joint swelling Back Exam Back exam: Present normal inspection; Absent tenderness Neurological Exam Neurological exam: Present alert and oriented X3; Absent motor sensory deficit Psychiatric Psychiatric exam: Present normal affect and normal mood Skin Skin exam: Present warm, dry and normal color Lymphatic Lymphatic Findings: no adenopathy Medical Decision Making <Jose Leach MD - Last Filed: 10/14/24 06:48> Medical Records Medical records reviewed: Yes I reviewed the patient's medical records. Screening: Per USPSTF and CDC recommendations, given the prevalence of disease in our region, it is our hospital?s policy to screen for HIV and viral Hepatitis for all patients aged 18 and over and those with ongoing risk factors. Kadeem Inquiry Pt receiving controlled substance: No Kadeem was queried for this patient: No Vital Signs: 10/14/24 05:08 10/14/24 05:18 10/14/24 06:08 Temperature 98.4 F Temperature Source Oral Pulse Rate 80 90 Pulse Rate [Left Radial] 78 Respiratory Rate 15 Blood Pressure 112/78 Blood Pressure [Right Arm] 149/101 H Blood Pressure Mean [Right Arm] 117 Blood Pressure Source Blood Pressure Source [Right Arm] Automatic Cuff Blood Pressure Position Blood Pressure Position [Right Arm] Sitting 02 Sat by Pulse Oximetry 97 95 Oxygen Delivery Method Room Air 10/14/24 06:09 10/14/24 06:30 10/14/24 07:00 Temperature Temperature Source Pulse Rate 96 H 91 H 78 Pulse Rate [Left Radial] Respiratory Rate 14 12 12 Blood Pressure 172/78 H 122/86 144/81 H Blood Pressure [Right Arm] Blood Pressure Mean [Right Arm] Blood Pressure Source Blood Pressure Source [Right Arm] Blood Pressure Position Sitting Blood Pressure Position [Right Arm] 02 Sat by Pulse Oximetry 95 92 L 97 Oxygen Delivery Method Room Air Room Air 10/14/24 07:31 10/14/24 08:11 Temperature 97.9 F Temperature Source Oral Pulse Rate 87 89 Pulse Rate [Left Radial] Respiratory Rate 16 Blood Pressure 134/50 L 117/76 Blood Pressure [Right Arm] Blood Pressure Mean [Right Arm] Blood Pressure Source Automatic Cuff Blood Pressure Source [Right Arm] Blood Pressure Position Blood Pressure Position [Right Arm] 02 Sat by Pulse Oximetry 94 L 97 Oxygen Delivery Method Room Air Room Air Lab Data Lab results reviewed: Yes I reviewed the patient's lab results. Lab Results 10/14/24 05:05: WBC 8.4, RBC 5.65, Hgb 17.0, Hct 47.3, MCV 83.7, MCH 30.1, MCHC 35.9 H, RDW 11.4 L, Plt Count 224, MPV 10.2, Neut % (Auto) 64.8, Lymph % (Auto) 26.3, Butts % (Auto) 6.2, Eos % (Auto) 2.3, Baso % (Auto) 0.2, Neut # (Auto) 5.4, Lymph # (Auto) 2.2, Butts # (Auto) 0.5, Eos # (Auto) 0.2, Baso # (Auto) 0.0, Sodium 136, Potassium 4.8, Chloride 95 L, Carbon Dioxide 32 H, Anion Gap 13.8, BUN 20, Creatinine 0.70, Estimated Creat Clear 239, Estimated GFR 122, Est GFR ( Amer) 148, Glucose 375 H, Calcium 10.0, Magnesium 1.9, Total Bilirubin 0.7, AST 61 H, ALT 95 H, Alkaline Phosphatase 89, Troponin I < 0.01, NT-Pro-B Natriuret Pep < 20.0, Total Protein 8.1, Albumin 4.3, Globulin 3.8 H, Albumin/Globulin Ratio 1.1, HCV Ab GINA w/Rflx PCR Qn Negative, HIV Ag/Ab Combo Qual Negative 10/14/24 07:58: Troponin I < 0.01 10/14/24 05:05 10/14/24 05:05 Orders (Tests/Meds): ED MEDICATIONS Discontinued Medications Generic Name Dose Route Start Last Admin Trade Name Freq PRN Reason Stop Dose Admin Acetaminophen 1,000 mg 10/14/24 05:07 10/14/24 05:14 Acetaminophen 500mg Tab PO 10/14/24 05:08 1,000 mg ONCE ONE Administration Aspirin 324 mg 10/14/24 05:07 10/14/24 05:15 Aspirin 81mg Chewable Tablet PO 10/14/24 05:08 324 mg ONCE ONE Administration Belladonna Alkaloids 60 ml 10/14/24 05:07 10/14/24 05:15 Belladonna Alkaloids 60 Ml Ml PO 10/14/24 05:08 60 ml ONCE ONE Administration Iopamidol 160 ml 10/14/24 05:47 10/14/24 05:48 Iopamidol-370 (76%);100ml Bottle IV 10/14/24 05:48 160 ml ONCE ONE Administration Prochlorperazine Edisylate 10 mg 10/14/24 05:07 10/14/24 05:15 Prochlorperazine 10mg/2ml Vial IV 10/14/24 05:08 10 mg ONCE ONE Administration Sodium Chloride 50 ml 10/14/24 05:47 10/14/24 05:48 0.9 % Sodium Chloride 50 Ml Vial IV 10/14/24 05:48 50 ml ONCE ONE Administration Sodium Chloride 10 ml 10/14/24 05:47 10/14/24 05:48 Sodium Chloride 0.9% 10ml Syr (Rad Only) IV 10/14/24 05:48 10 ml ONCE ONE Administration ORDERS Category Date Time Status CT angio chest PE protocol Stat Cat Scan 10/14/24 05:[address] angio head Stat Cat Scan 10/14/24 05:[address] angio neck Stat Cat Scan 10/14/24 05:[address] head/brain wo con Stat Cat Scan 10/14/24 05:07 Completed BNP [NT Pro Brain Natriuretic Pep.] Stat Lab 10/14/24 05:05 Completed CBC w/Auto Diff [Complete Blood Count Auto Diff] Stat Lab 10/14/24 05:05 Completed CMP [Comprehensive Metabolic Panel] Stat Lab 10/14/24 05:05 Completed HIV Combo Stat Lab 10/14/24 05:05 Completed Hepatitis C Ab Qual. W/ RFX Stat Lab 10/14/24 05:05 Completed Magnesium Stat Lab 10/14/24 05:05 Completed Troponin I Q3H Lab 10/14/24 05:05 Completed Troponin I Q3H Lab 10/14/24 07:58 Completed ECG Data Tracing #1: I reviewed this ECG and interpreted as documented below: Sinus rhythm, Q wave in lead III, inverted T waves in lead III and aVF. No significant ST elevation. ECG initial impression date: 10/14/24 ECG initial impression time: 05:02 HEART Score History (anamnesis): Moderately suspicious ECG: Non-specific disturbance Age: 45-65 years Risk factors: Atherosclerosis history Troponin: </= normal limit HEART Score: 5 Medical Decision Narrative: 44-year-old male with history of poorly controlled hypertension, LVH, coronary artery disease status post stents, poorly controlled diabetes presents for multiple complaints including headache, dizziness, chest pain that all started upon waking this morning. Last known normal 10 PM. History was obtained via interactive discussion with patient, family, chart review. On arrival, patient is [afebrile, hemodynamically stable, satting appropriately, alert, oriented x4, GCS 15], moving all extremities spontaneously. Full physical exam performed and significant for no significant physical exam abnormalities. Differential includes but is not limited to ACS, PE, hypertensive emergency, electrolyte derangement, intracranial hemorrhage, stroke, hypoglycemia, tension headache, migraine headache. No tPA as patient is outside the window and NIH is 0. Patient was given aspirin, Tylenol, Compazine for symptomatic management and correction of underlying abnormalities. Workup initiated including CBC CMP EKG BNP troponin CT head CTA head CTA chest. On re-evaluation, patient reports his headache and dizziness are gone. Reports his chest pain is improved. Laboratory workup independently interpreted by me and significant for no significant leukocytosis, renal function at baseline, glucose 375, anion gap normal LFTs minimally elevated, negative initial troponin. Imaging independently interpreted by me and significant for no evidence of intracranial bleeding or acute stroke. No evidence of PE on CT chest.. See radiology read for full review of final results. At this time patient was placed in ED observation status for continuous cardiac monitoring and and serial cardiac enzymes. At this time patient care at time physician. <Eugene Carter MD - Last Filed: 10/14/24 08:36> Vital Signs: 10/14/24 05:08 10/14/24 05:18 10/14/24 06:08 Temperature 98.4 F Temperature Source Oral Pulse Rate 80 90 Pulse Rate [Left Radial] 78 Respiratory Rate 15 Blood Pressure 112/78 Blood Pressure [Right Arm] 149/101 H Blood Pressure Mean [Right Arm] 117 Blood Pressure Source Blood Pressure Source [Right Arm] Automatic Cuff Blood Pressure Position Blood Pressure Position [Right Arm] Sitting 02 Sat by Pulse Oximetry 97 95 Oxygen Delivery Method Room Air 10/14/24 06:09 10/14/24 06:30 10/14/24 07:00 Temperature Temperature Source Pulse Rate 96 H 91 H 78 Pulse Rate [Left Radial] Respiratory Rate 14 12 12 Blood Pressure 172/78 H 122/86 144/81 H Blood Pressure [Right Arm] Blood Pressure Mean [Right Arm] Blood Pressure Source Blood Pressure Source [Right Arm] Blood Pressure Position Sitting Blood Pressure Position [Right Arm] 02 Sat by Pulse Oximetry 95 92 L 97 Oxygen Delivery Method Room Air Room Air 10/14/24 07:31 10/14/24 08:11 Temperature 97.9 F Temperature Source Oral Pulse Rate 87 89 Pulse Rate [Left Radial] Respiratory Rate 16 Blood Pressure 134/50 L 117/76 Blood Pressure [Right Arm] Blood Pressure Mean [Right Arm] Blood Pressure Source Automatic Cuff Blood Pressure Source [Right Arm] Blood Pressure Position Blood Pressure Position [Right Arm] 02 Sat by Pulse Oximetry 94 L 97 Oxygen Delivery Method Room Air Room Air Lab Data Lab Results 10/14/24 05:05: WBC 8.4, RBC 5.65, Hgb 17.0, Hct 47.3, MCV 83.7, MCH 30.1, MCHC 35.9 H, RDW 11.4 L, Plt Count 224, MPV 10.2, Neut % (Auto) 64.8, Lymph % (Auto) 26.3, Butts % (Auto) 6.2, Eos % (Auto) 2.3, Baso % (Auto) 0.2, Neut # (Auto) 5.4, Lymph # (Auto) 2.2, Butts # (Auto) 0.5, Eos # (Auto) 0.2, Baso # (Auto) 0.0, Sodium 136, Potassium 4.8, Chloride 95 L, Carbon Dioxide 32 H, Anion Gap 13.8, BUN 20, Creatinine 0.70, Estimated Creat Clear 239, Estimated GFR 122, Est GFR ( Amer) 148, Glucose 375 H, Calcium 10.0, Magnesium 1.9, Total Bilirubin 0.7, AST 61 H, ALT 95 H, Alkaline Phosphatase 89, Troponin I < 0.01, NT-Pro-B Natriuret Pep < 20.0, Total Protein 8.1, Albumin 4.3, Globulin 3.8 H, Albumin/Globulin Ratio 1.1, HCV Ab GINA w/Rflx PCR Qn Negative, HIV Ag/Ab Combo Qual Negative 10/14/24 07:58: Troponin I < 0.01 Orders (Tests/Meds): ED MEDICATIONS Discontinued Medications Generic Name Dose Route Start Last Admin Trade Name Freq PRN Reason Stop Dose Admin Acetaminophen 1,000 mg 10/14/24 05:07 10/14/24 05:14 Acetaminophen 500mg Tab PO 10/14/24 05:08 1,000 mg ONCE ONE Administration Aspirin 324 mg 10/14/24 05:07 10/14/24 05:15 Aspirin 81mg Chewable Tablet PO 10/14/24 05:08 324 mg ONCE ONE Administration Belladonna Alkaloids 60 ml 10/14/24 05:07 10/14/24 05:15 Belladonna Alkaloids 60 Ml Ml PO 10/14/24 05:08 60 ml ONCE ONE Administration Iopamidol 160 ml 10/14/24 05:47 10/14/24 05:48 Iopamidol-370 (76%);100ml Bottle IV 10/14/24 05:48 160 ml ONCE ONE Administration Prochlorperazine Edisylate 10 mg 10/14/24 05:07 10/14/24 05:15 Prochlorperazine 10mg/2ml Vial IV 10/14/24 05:08 10 mg ONCE ONE Administration Sodium Chloride 50 ml 10/14/24 05:47 10/14/24 05:48 0.9 % Sodium Chloride 50 Ml Vial IV 10/14/24 05:48 50 ml ONCE ONE Administration Sodium Chloride 10 ml 10/14/24 05:47 10/14/24 05:48 Sodium Chloride 0.9% 10ml Syr (Rad Only) IV 10/14/24 05:48 10 ml ONCE ONE Administration ORDERS Category Date Time Status CT angio chest PE protocol Stat Cat Scan 10/14/24 05:[address] angio head Stat Cat Scan 10/14/24 05:[address] angio neck Stat Cat Scan 10/14/24 05:[address] head/brain wo con Stat Cat Scan 10/14/24 05:07 Completed BNP [NT Pro Brain Natriuretic Pep.] Stat Lab 10/14/24 05:05 Completed CBC w/Auto Diff [Complete Blood Count Auto Diff] Stat Lab 10/14/24 05:05 Completed CMP [Comprehensive Metabolic Panel] Stat Lab 10/14/24 05:05 Completed HIV Combo Stat Lab 10/14/24 05:05 Completed Hepatitis C Ab Qual. W/ RFX Stat Lab 10/14/24 05:05 Completed Magnesium Stat Lab 10/14/24 05:05 Completed Troponin I Q3H Lab 10/14/24 05:05 Completed Troponin I Q3H Lab 10/14/24 07:58 Completed HEART Score HEART Score: 5 Medical Decision Narrative: 44-year-old male with history of poorly controlled hypertension, LVH, coronary artery disease status post stents, poorly controlled diabetes presents for multiple complaints including headache, dizziness, chest pain that all started upon waking this morning. Last known normal 10 PM. History was obtained via interactive discussion with patient, family, chart review. On arrival, patient is [afebrile, hemodynamically stable, satting appropriately, alert, oriented x4, GCS 15], moving all extremities spontaneously. Full physical exam performed and significant for no significant physical exam abnormalities. Differential includes but is not limited to ACS, PE, hypertensive emergency, electrolyte derangement, intracranial hemorrhage, stroke, hypoglycemia, tension headache, migraine headache. No tPA as patient is outside the window and NIH is 0. Patient was given aspirin, Tylenol, Compazine for symptomatic management and correction of underlying abnormalities. Workup initiated including CBC CMP EKG BNP troponin CT head CTA head CTA chest. On re-evaluation, patient reports his headache and dizziness are gone. Reports his chest pain is improved. Laboratory workup independently interpreted by me and significant for no significant leukocytosis, renal function at baseline, glucose 375, anion gap normal LFTs minimally elevated, negative initial troponin. Imaging independently interpreted by me and significant for no evidence of intracranial bleeding or acute stroke. No evidence of PE on CT chest.. See radiology read for full review of final results. At this time patient was placed in ED observation status for continuous cardiac monitoring and and serial cardiac enzymes. At this time patient care at time physician. Murray, Eugene Carter, took over care of patients around 7 AM this morning and patient was asymptomatic at that time. His second troponin was undetectable and on second reassessment was sitting up in bed ready to go with significant improvement. Patient has a primary care doctor that discussed that he will need to follow-up with and per chart review has a follow-up with a long term care social worker in December of this year. Patient was given strict return precautions, discussed labs and imaging findings with him and patient discharged in stable condition. Procedures <Jose Leach MD - Last Filed: 10/14/24 06:48> Risk/Benefits of Procedure(s) Were Explained: Yes Critical Care <Jose Leach MD - Last Filed: 10/14/24 06:48> Critical Care Time Critical Care Time: No
[2024-10-14] MEDS: ACETAMINOPHEN 500MG TAB 1000 MG PO (05:14)
[2024-10-14] MEDS: BELLADONNA ALKALOIDS 60 ML ML PO (05:15)
[2024-10-14] MEDS: ASPIRIN 81MG CHEWABLE TABLET 324 MG PO (05:15)
[2024-10-14] MEDS: PROCHLORPERAZINE 10MG/2ML VIAL 10 MG IV (05:15)
--- NOTE | 2024-10-14 05:27 | PC.NURSE ---
PT transported to radiology via wheelchair per radiology staff.
[2024-10-14 05:31] LABS: Basophils % 0.2 % (0.1-2.0); Eosinophils # 0.2 Kmm3 (0.0-0.4); Eosinophils % 2.3 % (0.1-12.0); Hematocrit 47.3 % (42.0-52.0); Immature Granulocytes # 0.02 10^3uL; Immature Granulocytes % 0.2 %; Lymphocytes # 2.2 K/mm3 (0.7-4.5); Lymphocytes % 26.3 % (10-50); Mean Corpuscular HGB Conc 35.9 g/dL (31.8-35.4); Mean Corpuscular Hemoglobin 30.1 pg (27.0-31.2); Mean Corpuscular Volume 83.7 fl (80-94); Mean Platelet Volume 10.2 fl (7.4-10.4); Monocytes # 0.5 K/mm3 (0.1-1.0); Monocytes % 6.2 % (1.7-9.3); Neutrophils # 5.4 K/mm3 (1.8-7.8); Neutrophils % 64.8 % (37.0-80.0); Nucleated Red Blood Cells # 0 10^3/uL; Nucleated Red Blood Cells % 0 %; Platelet Count 224 K/mm3 (142-424); Red Blood Count 5.65 M/mm3 (4.60-6.20); Red Cell Distribution Width 11.4 % (11.5-17.5); Red Cell Distribution Width-SD 34.4 fL; White Blood Count 8.4 K/mm3 (4.8-10.8)
[2024-10-14 05:32] LABS: Albumin Level 4.3 g/dl (3.5-5.0); Chloride 95 mmol/L (98-107); Sodium 136 mmol/L (136-145)
[2024-10-14 05:33] LABS: Potassium 4.8 mmoL/L (3.5-5.1)
[2024-10-14 05:35] LABS: Alanine Aminotransferase 95 U/L (12-78); Albumin/Globulin Ratio 1.1 (1.1-1.8); Anion Gap 13.8 mEq/L (5-15); Blood Urea Nitrogen 20 mg/dl (9-20); Carbon Dioxide 32 mmol/L (22.0-30.0); Creatinine Clearance Estimated 239 mL/min (50-200); Estimated Glomerular Filt Rate 122 ml/min (>60); GFR (African American) 148 ML/MIN (>60); Globulin 3.8 g/dL (1.3-3.2); Total Protein,Serum 8.1 g/dl (6.3-8.2)
[2024-10-14 05:36] LABS: Alkaline Phosphatase 89 U/L (38-126); Aspartate Amino Transferase 61 U/L (17-59); Bilirubin,Total 0.7 mg/dl (0.2-1.3); Glucose 375 mg/dl (74-100); Magnesium 1.9 mg/dl (1.6-2.3)
[2024-10-14 05:45] LABS: NT Pro Brain Natriuretic Pep. < 20.0 pg/mL (0-125)
[2024-10-14] MEDS: SODIUM CHLORIDE 0.9% 10ML SYR (RAD ONLY) 10 ML IV (05:48)
[2024-10-14] MEDS: IOPAMIDOL-370 (76%);100ML BOTTLE 160 ML IV (05:48)
[2024-10-14] MEDS: 0.9 % SODIUM CHLORIDE 50 ML VIAL IV (05:48)
[2024-10-14 06:00] LABS: Troponin I < 0.01 ng/ml (0.00-0.034)
--- NOTE | 2024-10-14 06:22 | PC.NURSE ---
ed provider at the bedside updating pt on POC.
[2024-10-14 06:46] LABS: HIV Combo NEGATIVE (Negative)
[2024-10-14 06:54] LABS: Hepatitis C Ab Qual. W/ RFX NEGATIVE (Negative)
--- NOTE | 2024-10-14 08:00 | PC.NURSE ---
Repeat trop sent at 0800
[2024-10-14 08:30] LABS: Troponin I < 0.01 ng/ml (0.00-0.034)
== END 2024-10-14 08:40 | disposition home or self-care (01) ==
PROVIDERS: Emergency Medicine; Emergency Provider Student in an Organized Health Care Education/Training Program
DX: R07.9 Chest pain, unspecified (principal); R51.9 Headache, unspecified; I10 Essential (primary) hypertension
CPT/HCPCS: 70450; 70496; 70498; 71275; 80053; 83735; 83880; 84484; 85025; 86803; 87389; 93005; 96374; 99285; J0780; Q9967

== ENCOUNTER 2025-01-09 11:41 | Outpatient (CLI) | payer BC, SELFPAY ==
--- OUTSIDE RECORDS SUMMARY | 2023-12-13 12:30 | XMS_ITS ---
Author Organization [facility] Address [address] [place] [address] Care Team Providers Care Watermelon Inspector Name Role Phone Zach Patel Primary Care Provider REASON FOR VISIT 2 wk f/u Encounters Encounter Location Date Provider Diagnosis [facility] [address] [place] [address] 12/13/2023 Zach Patel Plan Of Treatment No Information Progress Notes * HIGINIOShayySebastienOB:1980 (44 yo M)Acc No.[id number]:12/13/2023 Progress Notes Patient: Hank LAWSON Provider: Yaakov Patel MD :1980 A ge:43 Y S ex:Male Date:12/13/2023 Address:[address], [id number] Subjective: * Chief Complaints: * 1 . 2 wk f/u. * Medical History: Objective: * Vitals: Assessment: Plan: * Treatment: * * Electronic signature of Lamin Patel MD FAAP on 01/10/2025 at 12:28 PM EDT Sign off status: Pending * Provider: Yaakov Patel MD Date: 0 12/13/2023 Generated for Printi ng/Faxing/eTransmitting on: 01/10/2025 12:28 PM EDT
[2025-01-09 15:48] LABS: Hemoglobin A1C 13.7 % (4.0-6.0)
[2025-01-09 16:16] LABS: Alanine Aminotransferase 121 U/L (12-78); Albumin Level 4.4 g/dl (3.5-5.0); Albumin/Globulin Ratio 1.4 (1.1-1.8); Alkaline Phosphatase 102 U/L (38-126); Anion Gap 16.6 mEq/L (5-15); Aspartate Amino Transferase 57 U/L (17-59); Bilirubin,Total 0.8 mg/dl (0.2-1.3); Blood Urea Nitrogen 15 mg/dl (9-20); Calcium 9.5 mg/dl (8.4-10.2); Carbon Dioxide 23 mmol/L (22.0-30.0); Chloride 97 mmol/L (98-107); Cholesterol 256 mg/dl (140-200); Creatinine,Serum 0.60 mg/dl (0.66-1.25); Estimated Glomerular Filt Rate 146 ml/min (>60); GFR (African American) 176 ML/MIN (>60); Globulin 3.2 g/dL (1.3-3.2); HDL Cholesterol 37 mg/dl (40-60); Potassium 4.6 mmoL/L (3.5-5.1); Sodium 132 mmol/L (136-145); Total Protein,Serum 7.6 g/dl (6.3-8.2)
[2025-01-09 16:27] LABS: Glucose 522 mg/dl (74-100); Triglycerides 412 mg/dl (30-150)
[2025-01-09 16:46] LABS: Prostate Specific Ag, Diagnost 0.582 ng/ml (0.0-4.0)
--- OUTSIDE RECORDS SUMMARY | 2025-01-10 12:28 | XMS_ITS | Patient Health Record ---
Author Organization [facility] Address [address] [place] [address] Care Team Providers Care Antique Collector Name Role Phone AmandaZach Primary Care Provider Migration, Provider Unavailable Unavailable Allergies Allergen (clinical drug ingredient) Drug/Non Drug Allergy documented on EMR Reaction Allergy Type Onset Date Status COCONUTS (uncoded) throat swelling Allergy Active Reason For Referral No Information Medications Medication SIG (Take, Route, Frequency, Duration) Notes Start Date End Date Status amLODIPine Besylate 5 MG 1 tab(s) orally once a day; Duration: 30 days 12/01/2021 Active Glimepiride 2 MG 1 tab(s) orally once a day; Duration: 90 days 11/29/2023 Active Citalopram Hydrobromide 10 MG 1 tab(s) orally once a day; Duration: 30 days 04/06/2023 Active Lisinopril-hydroCHLOR Othiazide 20-12.5 MG 1 tab(s) orally once a day; Duration: 30 days Active Omeprazole 20 MG 1 cap(s) orally twice daily; Duration: 90 days Active GLUCOMETER *Please review f or potential replacement for e-prescription and drug interaction check* 07/06/2022 Active Farxiga 10 MG 1 tab(s) orally once a day; Duration: 90 days 11/29/2023 Active metFORMIN HCl 1000 MG 1 tab(s) orally daily; Duration: 90 days 11/29/2023 Active LANCET DAILY; Duration: 30 DAYS *Please review for potential replacement [...] Problem Status W/U Status Risk Notes Problem Type 2 diabetes mellitus with other specified complication (E11.69) Active confirmed Problem Obesity (522400048) Obesity, unspecified (E66.9) Active confirmed Problem Essential hypertension (00398763) Essential hypertension (I10) Active confirmed Problem Obese class II (563954136109989) BMI 39.0-39.9,adult (Z68.39) Active confirmed Problem Elevated liver enzymes level (073889871) Elevated liver enzymes (R74.8) Active confirmed Problem Obstructive sleep apnea syndrome (77368703) HARLEY (obstructive sleep apnea) (G47.33) Active confirmed Problem Generalized anxiety disorder (53585444) LILLIE (generalized anxiety disorder) (F41.1) Active confirmed Problem Gastroesophageal reflux disease (disorder) (264769172) Chronic GERD (K21.9) Active confirmed Problem Type II diabetes mellitus without complication (217094863) Controlled type 2 diabetes mellitus without complication, without long-term current use of insulin (E11.9) Active confirmed Problem Abnormal findings on diagnostic imaging of skull and head (733038339) Abnormal CT scan, head (R93.0) Active confirmed Problem Hyperglycemia due to type 2 diabetes mellitus (579689671669051) Uncontrolled type 2 diabetes mellitus with hyperglycemia (E11.65) Active confirmed Encounters Encounter Location Date Provider Diagnosis [facility] JEAN [address] [facility] [address] [place] [address] 07/27/2024 Provider Migration Uncontrolled type 2 diabetes mellitus with hyperglycemia E11.65 and Chronic GERD K21.9 Assessments Encounter Date Diagnosis (ICD Code) Assessment Notes Treatment Notes Treatment Clinical Notes Section Notes 07/27/2024 Uncontrolled type 2 diabetes mellitus with hyperglycemia (ICD-10 - E11.65) 07/27/2024 Chronic GERD (ICD-10 - K21.9) Plan Of Treatment Pending Test Test Name Order Date Ultrasound : Right Upper Quadrant 2022 M-Complete Blood Count Auto Diff 023 M-Complete Blood Count Auto Diff 023 M-Urinalysis and Microscopic 03/04/2023 M-Comprehensive Metabolic Panel 03/04/20 23 M-Comprehensive Metabolic Panel 07/07/19 23 M-Hemoglobin A1C 03/04/2023 M-Hemoglobin A1C 07/06/2022 M-Lipid Panel 07/06/2022 M-Lipid Panel 03/04/2023 M-Prostate Specific Ag Screen 03/04/2023 M-Microalb/Creat Ratio, [facility] 023 M-Microalb/Creat Ratio, [facility] 023 Insurance Providers Payer Name Payer Address Payer Phone Subscriber Number Group Number Insured Name Patient Relationship to Insured Coverage Start Date Coverage End Date [employer] [address] [place]I [place] [id number] Hank Bridges Self - patient is the insured Medical (General) History Medical History History ICD Code Diabetes HTN Obesity Chest pain admit with negative myoview s tress test 10/2020 HARLEY, mild, waiting on CPAP Surgical History Surgery Date(Month/Year) Heart Cath 2017 Hospitalization History Reason Date(Month/Year) chest pain 10/2020
== END 2025-01-09 23:59 ==
LOC: LAB.DROPOF 01-10 12:26
PROVIDERS: PCP Family Medicine; Visit Provider Family Medicine
DX: E78.5 Hyperlipidemia, unspecified (principal); E11.65 Type 2 diabetes mellitus with hyperglycemia; E66.9 Obesity, unspecified; I10 Essential (primary) hypertension; Z12.5 Encounter for screening for malignant neoplasm of prostate
CPT/HCPCS: 80053; 80061; 82043; 82570; 83036; 84153